=== PATIENT | male | born 1960 | race Caucasian/White ===

== ENCOUNTER 2018-07-19 18:45 | Inpatient (IN) ==
[2018-07-19] MEDS ORDERED: 0.9 % Sodium Chloride 1,000 ML IVC ONE (18:57)
[2018-07-19] MEDS ORDERED: Dexamethasone 4 MG/ML VIAL IVP ONE (19:01)
[2018-07-19] MEDS ORDERED: *HR* Promethazine 25 MG/ML VIAL IVP ONE (19:02)
[2018-07-19] MEDS ORDERED: Isovue-370 500 ML INFUS..BTL IV ONE (19:17)
--- NOTE | 2018-07-19 19:20 | Emergency Department Note ---
Disposition Clinical Impression: MARJAN (acute kidney injury), Pleural effusion, Elevated liver enzymes, Hyponatremia, History of malignant melanoma Pneumonia Qualifiers: Pneumonia type: due to unspecified organism Laterality: left Lung location: unspecified part of lung Qualified Code(s): J18.9 - Pneumonia, unspecified organism Abdominal pain Qualifiers: Abdominal location: generalized Qualified Code(s): R10.84 - Generalized abdominal pain Nausea and vomiting Qualifiers: Vomiting type: unspecified Vomiting Intractability: non-intractable Qualified Code(s): R11.2 - Nausea with vomiting, unspecified Disposition: Admitted As Inpatient Condition: Fair Time of Disposition: 01:57 General Adult HPI - General Stated complaint: general weakness Time Seen by Provider: 07/19/18 18:48 Source: patient, family, EMS Mode of arrival: ambulatory Limitations: no limitations Nursing Notes Reviewed: Yes Vital Signs Reviewed: Yes - History of Present Illness HPI Narrative: Patient is a 57-year-old male with past medical history of PE/DVT, diabetes, malignant melanoma diagnosed in March 2018, left-sided chest pleural drain placement due to a malignant effusion, and atrial fibrillation presents to the emergency department for evaluation of nausea, vomiting, weakness and dyspnea. According to the patient and patient's family the past 3 days he has had nonstop nausea and vomiting has been unable to tolerate any by mouth. Patient' s family were states he has also become progressively weak that he sits in a chair at home and he has been unable to him later on the house without difficulty. The patient's caregiver states that she walked into the room after he held for her prior to arrival and he was sitting up in his chair with his head back looking at the ceiling and appeared to be in a daze was unresponsive for about 5 minutes. She states she called the squad my time the squad arrived he was responding appropriately. She states that she has been checking his pulse oxygen has been dropping down into the 70s 2 days ago and in the 80s yesterday. She states that he is on 2 L nasal cannula at home since his cancer diagnosis. Denies any history of COPD. Patient has no focal neurological deficits. atrial fibrillation cancer DVT diabetes pulmonary embolus other Male surgical history herniorrhaphy - Related Data Home Medications Medication Instructions Recorded Confirmed Amiodarone [Cordarone] 200 mg PO DAILY 06/01/18 07/19/18 Fludrocortisone Acetate [Florinef] 0.1 mg PO BID 06/01/18 07/19/18 Metoprolol [Lopressor] 12.5 mg PO BID 06/01/18 07/19/18 Multivit-Min/FA/Lycopen/Lutein [A 1 tab PO DAILY 06/01/18 07/19/18 Thru Z Select Multivit Tab] Naproxen 375 mg PO BID PRN 06/01/18 07/19/18 Ondansetron HCl [Zofran] 4 mg PO Q8HR PRN 06/01/18 07/19/18 Saxagliptin HCl [Onglyza] 5 mg PO DAILY 06/01/18 07/19/18 Aspirin Enteric Coated [Aspirin EC] 81 mg PO DAILY 07/19/18 07/19/18 Baclofen [Lioresal] 10 mg PO TID 07/19/18 07/19/18 Enoxaparin [Lovenox] 150 mg SQ DAILY 07/19/18 07/19/18 Hydrocortisone [Cortef] 10 mg PO QPM 07/19/18 07/19/18 Hydrocortisone [Cortef] 30 mg PO QAM 07/19/18 07/19/18 Insulin Glargine,Hum.rec.anlog 10 unit SQ DAILY 07/19/18 07/19/18 [Lantus Solostar] Pantoprazole Sodium [Protonix] 20 mg PO DAILY 07/19/18 07/19/18 Tamsulosin HCl [Flomax] 0.4 mg PO DAILY 07/19/18 07/19/18 metFORMIN [Glucophage] 500 mg PO DAILY 07/19/18 07/19/18 Allergies Allergy/AdvReac Type Severity Reaction Status Date / Time No Known Allergies Allergy Verified 06/13/15 14:30 All systems ED: reviewed and negative except as stated. Review of Systems: As Per HPI Constitutional: Reports: weakness. Denies: fever, chills Cardiovascular: Reports: dyspnea on exertion. Denies: chest pain, palpitations , edema, syncope Respiratory: Reports: dyspnea. Denies: cough, wheezes, sputum production Gastrointestinal: Reports: abdominal pain, nausea, vomiting. Denies: diarrhea, hematemesis, melena, hematochezia Genitourinary: Denies: urgency, dysuria, frequency Musculoskeletal: Denies: back pain Integumentary: Denies: rash Neurological: Reports: weakness (Generalized). Denies: headache, numbness, paresthesias, confusion Past Medical History - Past Medical History Attestation: Yes The following information was validated with the patient. Medical history: Reports: cancer, DVT, diabetes, pulmonary embolus, other Surgical history: Reports: cancer surgery, other (melanoma and lymph node resection, right cheek bone reconstruction, b/l hernia repair as a child) Psychiatric history: Reports: no psych history - Social History Smoking Status: Never smoker Smokeless Tobacco Status: No Alcohol use: Reports: none Drug use: Reports: none Physical Exam - General Limitations: no limitations General appearance: alert, cachectic - Head Head exam: atraumatic, normocephalic, normal inspection - Eye Eye exam: Present: normal appearance, PERRL, EOMI - ENT ENT exam: mucous membranes dry - Neck Neck exam: Present: normal inspection, full ROM, trachea midline. Absent: tenderness - Chest Chest inspection: Present: symmetric chest wall rise, other (Right chest port. No signs of erythema or surrounding induration or fluctuance. Patient also has a bandaged left-sided chest tube placed.). Absent: tenderness - Respiratory Respiratory exam: Present: normal lung sounds bilaterally. Absent: respiratory distress, wheezes, accessory muscle use - Cardiovascular Cardiovascular exam: Present: normal heart sounds, +S1, +S2 - Abdominal Exam Abdominal exam: Present: tenderness, guarding, normal bowel sounds. Absent: rebound, rigidity Abdominal tenderness: Present: mild (Periumbilical region) - Extremities Exam Extremities exam: Present: normal inspection, full ROM, normal capillary refill. Absent: tenderness, pedal edema - Back Exam Back exam: Present: normal inspection. Absent: tenderness - Neurological Exam Neurological exam: Present: alert, oriented X3, CN II-XII intact. Absent: motor sensory deficit - Expanded Neurological Exam Patient oriented to: Present: person, place, time Speech: Present: fluid speech Cranial nerves: EOM function (II, III, IV, ): Normal, facial sensation (V): Normal, facial palsy (VII): Normal, gag reflex (IX): Normal, spinal accessory function (XI): Normal, tongue deviation (XII): Normal Cerebellar function: finger to nose: Normal, heel to dwyer: Normal Motor strength - LUE: 5/5 Motor strength - RUE: 5/5 Motor strength - LLE: 5/5 Motor strength - RLE: 5/5 Sensory exam upper extremity: light touch: Normal Sensory exam lower extremity: light touch: Normal Coma Scale Eye Opening: Spontaneous Coma Scale Motor Response: Obeys Commands Coma Scale Verbal Response: Oriented Coma Scale Total: 15 - Psychiatric Psychiatric exam: Present: normal affect, normal mood - Skin Skin exam: Present: warm, dry, intact, normal color Course Course Narrative: Patient presents with history of malignant melanoma complaining of multiple doses of nausea and vomiting associated with dyspnea. Currently goes immunologic treatments at the [facility] every 3 weeks there is right chest port. Discussed with the patient plan at this time is to treat his symptoms which she was given promethazine and steroids by the daytime provider. They mention a concern of possible spread of metastases to the brain causing increased intracranial pressure leading to the patient's uncontrollable nausea vomiting. On exam the patient also had diffuse abdominal pain given his inability to tolerate by mouth we will also perform a CT scan of the abdomen. The caregiver also mentioned hypoxia to plans times to evaluate the patient for concerns for ACS versus PE. Patient stable at this time. - Reevaluation(s) Reevaluation #1: Patient's CBC was remarkable. His metabolic panel was significant for a hyponatremia of 128. He also has a KI with a creatinine of 1.39 which is new. His urine was negative for any signs of infection.the patient does have elevation of his AST and LT as well as his bilirubins. Given his nausea vomiting abdominal pain and essentially negative CT scan for any acute process plan is to perform a gallbladder ultrasound to evaluate for potential cholecystitis. He has received broad-spectrum antibiotics due to his chest x- ray findings concerning for possible pneumonia versus pulmonary effusion. His CTA was negative for PE. The gallbladder scan is negative the patient will be admitted to the hospital for further treatment of his pneumonia. Time: 00:50 Reevaluation #2: Discussed the patient's case with hospitalist on-call. Discussed plan to admit him for dyspnea the setting of possible pleural effusion versus pneumonia. Discussed broad-spectrum antibiotic coverage request that we place the patient on azithromycin to cover for atypicals. The patient's chronic steroid use at home and also given a 100 mg dose of Solu-Cortef for any adrenal insufficiency concern. Discussed that we will wait to admit the patient until his gallbladder US has returned. Time: 01:54 Vital Signs Temperature 102.9 F H 07/19/18 19:32 Pulse Rate 96 07/19/18 19:32 Respiratory Rate 25 07/19/18 19:32 Blood Pressure 174/86 07/19/18 19:32 O2 Sat by Pulse Oximetry 100 07/19/18 19:32 Temperature 97.5 F L 07/20/18 05:46 Pulse Rate 69 07/20/18 05:46 Respiratory Rate 16 07/20/18 05:46 Blood Pressure 129/81 07/20/18 05:46 O2 Sat by Pulse Oximetry 100 07/20/18 05:46 Oxygen Delivery Oxygen Delivery Room Air Medical Decision Making - Medical Records Medical records reviewed: Yes I reviewed the patient's medical records. - Lab Data Lab results reviewed: Yes I reviewed the patient's lab results. Result diagrams: 07/19/18 18:57 07/19/18 18:57 Lab Results 07/19/18 07/19/18 07/20/18 Range/Units 18:57 18:57 00:12 WBC 7.1 (4.3-11.1) K/mcL RBC 4.16 L (4.19-5.50) M/mcL Hgb 12.2 L (12.9-16.9) g/dL Hct 36.5 L (37.5-50.1) % MCV 87.7 (83.0-100.0) fL MCH 29.3 (28.0-33.3) pg MCHC 33.4 (31.6-35.5) g/dL RDW 15.0 H (11.5-14.5) % Plt Count 124 L (140-400) K/mcL MPV 8.2 L (9.4-12.4) fL Immature Gran % 2.0 (0-4) % Seg Neutrophils % 65.8 % Lymphocytes % 24.9 % Monocytes % 4.9 % Eosinophils % 1.4 % Basophils % 1.0 % Neutrophils # 4.7 (1.6-8.9) K/mcL Lymphocytes # 1.8 (0.6-4.6) K/mcL Monocytes # 0.4 (0.0-1.3) K/mcL Eosinophils # 0.1 (0.0-0.6) K/mcL Basophils # 0.1 (0.0-0.2) K/mcL Sodium 128 L (136-145) mEq/L Potassium 3.7 (3.5-5.1) mEq/L Chloride 93 L (98-107) mEq/L Carbon Dioxide 28 (23-29) mEq/L BUN 27 H (6-20) mg/dL Creatinine 1.39 H (0.70-1.30) mg/dL Est GFR ( Amer) > 60 (> 60) Est GFR (Non-Af Amer) 52 L (> 60) BUN/Creatinine Ratio 19 (6-26) Glucose 220 H (70-105) mg/dL Calculated Osmolality 278 L (280-300) Calcium 7.9 L (8.6-10.3) mg/dL Total Bilirubin 1.2 H (0.3-1.0) mg/dL Direct Bilirubin 0.5 H (0.0-0.2) mg/dL Indirect Bilirubin 0.7 (0.0-1.2) mg/dL AST 172 H (13-39) Units/L ALT 136 H (7-52) Units/L Alkaline Phosphatase 505 H (34-104) Units/L Troponin I 0.03 (< 0.04) ng/mL Serum Total Protein 6.1 L (6.4-8.9) g/dL Albumin 2.9 L (3.5-5.7) g/dL Globulin 3.2 (2.4-3.5) g/dL Albumin/Globulin Ratio 0.9 L (1.1-2.2) Urine Color Dark Yellow (Yellow) Urine Clarity Clear (Clear) Urine pH 5.5 (5.0-8.0) pH Units Ur Specific [place] 1.024 (1.010-1.025) Urine Protein 100 H (Neg-Trace) mg/dL Urine Glucose (UA) 100 H (Normal) mg/dL Urine Ketones Trace H (Negative) mg/dL Urine Blood Small H (Negative) Urine Nitrite Negative (Negative) Urine Bilirubin Small H (Negative) Urine Urobilinogen Normal (Normal) mg/dL Ur Leukocyte Esterase Negative (Negative) Urine Microscopic RBC 3-5 H (0-3) per hpf Urine Microscopic WBC 0-3 (0-3) per hpf Ur Squamous Epith Cells Many H (None-Few) per lpf Urine Bacteria None Seen (None-Few) per hpf Granular Casts Few H (None Seen) per lpf Ur Culture Indicated? NO (NO) - Radiology Data Radiology results reviewed: Yes I reviewed the patient's radiology results. Chest X-Ray 07/19/18 18:57 IMPRESSION: Left pleural catheter in place. Left mid and lower lung airspace opacification, atelectasis and/or pneumonia. Developing scarring could also have this appearance. D/ / Remedios Durham Cha, MD / Remedios Durham Cha, MD Interpreting Provider: Remedios Durham Cha, MD Abdomen/Pelvis CT 07/19/18 19:17 IMPRESSION: Interval decrease in size of bilateral adrenal gland masses. Otherwise stable findings. D/ / Remedios Durham Cha, MD / Remedios Durham Cha, MD Interpreting Provider: Remedios Durham Cha, MD Head CT 07/19/18 19:17 IMPRESSION: No acute intracranial abnormality. Status post surgical fixation of the right orbital rim. D/ / Mitesh Zhang MD / Mitesh Zhang MD Interpreting Provider: Mitesh Zhang MD Chest CTA 07/19/18 19:18 IMPRESSION: No evidence of pulmonary embolism. Left hilar/infrahilar mass measuring 3.6 x 3.9 cm. There is encasement of pulmonary vasculature. Left-sided pleural effusion and adjacent atelectasis/scarring. Mediastinal lymphadenopathy. D/ / Mitesh Zhang MD / Mitesh Zhang MD Interpreting Provider: Mitesh Zhang MD - EKG Data EKG #1 EKG attestation: Yes I reviewed and interpreted this EKG. EKG results narrative: EKG done at 19:33 shows atrial fibrillation rate 94 bpm. Normal axis. Otherwise normal EKG. Attestation Statement - Attestation Attestation: I examined this patient and my medical decision-making was reviewed with the Resident Physician. I agree with the documented findings, disposition and treatment plan as described except to the extent set forth below. Findings consistent with metastatic melanoma and complications of that. There was evidence of transaminitis as well as elevated alkaline phosphatase and a ultrasound of the gallbladder was obtained to rule out acute cholecystitis. The patient result be admitted after initiation of broad-spectrum antibiotics given findings of fever. The patient will be admitted for further management workup.
[2018-07-19 20:23] LABS: Basophils # 0.1 K/mcL (0.0-0.2); Eosinophils # 0.1 K/mcL (0.0-0.6); Eosinophils % 1.4 %; Hematocrit 36.5 % (37.5-50.1); Hemoglobin 12.2 g/dL (12.9-16.9); Lymphocytes # 1.8 K/mcL (0.6-4.6); Lymphocytes % 24.9 %; Mean Corpuscular HGB Conc 33.4 g/dL (31.6-35.5); Mean Corpuscular Hemoglobin 29.3 pg (28.0-33.3); Mean Corpuscular Volume 87.7 fL (83.0-100.0); Mean Platelet Volume 8.2 fL (9.4-12.4); Monocytes # 0.4 K/mcL (0.0-1.3); Monocytes % 4.9 %; Neutrophils # 4.7 K/mcL (1.6-8.9); Platelet Count 124 K/mcL (140-400); Red Blood Count 4.16 M/mcL (4.19-5.50); Segmented Neutrophils % 65.8 %
[2018-07-19] MEDS ORDERED: Acetaminophen IV 1,000 MG/100 ML INFUS..BTL IVPB ONE (20:41)
[2018-07-19 20:45] LABS: Alanine Aminotransferase 136 Units/L (7-52); Albumin 2.9 g/dL (3.5-5.7); Albumin/Globulin Ratio 0.9 (1.1-2.2); Alkaline Phosphatase 505 Units/L (34-104); Aspartate Amino Transferase 172 Units/L (13-39); BUN/Creatinine Ratio 19 (6-26); Bilirubin,Direct 0.5 mg/dL (0.0-0.2); Bilirubin,Indirect 0.7 mg/dL (0.0-1.2); Bilirubin,Total 1.2 mg/dL (0.3-1.0); Blood Urea Nitrogen 27 mg/dL (6-20); Calcium 7.9 mg/dL (8.6-10.3); Carbon Dioxide 28 mEq/L (23-29); Chloride 93 mEq/L (98-107); Globulin 3.2 g/dL (2.4-3.5); Glucose 220 mg/dL (70-105); Osmolality,Calculated 278 (280-300); Potassium 3.7 mEq/L (3.5-5.1); Sodium 128 mEq/L (136-145); Total Protein 6.1 g/dL (6.4-8.9); Troponin I 0.03 ng/mL (< 0.04); eGFR For Non-African Americans 52 (> 60)
[2018-07-19] MEDS ORDERED: Cefepime HCl 2,000 MG in 0.9 % Sodium Chloride Mini Bag 100 ML IVPB STA (21:39)
[2018-07-20 00:20] LABS: Bilirubin,Urine Small (Negative); Blood,Urine Small (Negative); Clarity,Urine Clear (Clear); Color,Urine Dark Yellow (Yellow); Glucose,Urine (UA) 100 mg/dL (Normal); Ketones,Urine Trace mg/dL (Negative); Leukocyte Esterase,Urine Negative (Negative); Nitrite,Urine Negative (Negative); PH,Urine 5.5 pH Units (5.0-8.0); Protein,Urine 100 mg/dL (Neg-Trace); Specific Gravity,Urine 1.024 (1.010-1.025); Urobilinogen,Urine Normal (Normal)
[2018-07-20 00:22] LABS: Bacteria,Urine None Seen per hpf (None-Few); Squamous Epithelial Cell,Urine Many per lpf (None-Few); WBC,Urine 0-3 per hpf (0-3)
[2018-07-20 00:33] LABS: Granular Casts,Urine Few per lpf (None Seen)
[2018-07-20] MEDS ORDERED: Azithromycin 500 MG in D5% in Water 250 ML IVPB ONE (01:52)
[2018-07-20] MEDS ORDERED: Hydrocortisone Sodium Succ 100 MG/2 ML VIAL IVP ONE (01:53)
[2018-07-20] MEDS ORDERED: Naloxone 0.4 MG/ML INJ IVP PRN (08:01)
[2018-07-20] MEDS: Levofloxacin 750 MG/150 ML 750 MG/150 ML BAG IVPB SCH (09:46)
[2018-07-20] MEDS: Aspirin Enteric Coated 81 MG Tablet PO SCH (09:47)
[2018-07-20] MEDS: 0.9 % Sodium Chloride 1,000 ML IVC SCH ×2 (09:47→21:30)
--- NOTE | 2018-07-20 10:29 | Internal Med History&Physical ---
Date of Encounter: 07/20/18 Time of Encounter: 10:30 Internal Medicine - H&P: HPI Chief complaint: Nausea, vomiting and fevers History of present illness: Mr. Catherine is a 57 year old male with pmh of malignant melanoma of the adrenal gland and lungs for which he is on immunotherapy , also with left sided pleurx drain, adrenal insufficiency on oral steroids, diabetes, PE/DVT presenting with complaints of nausea, vomiting and fevers since thursday. Patient denies any triggers, denies eatig out, says he went to bed and woke up feeling really sick on thursday. Has had fevers up to 102 at home for which he took tylenol and subsequently had sweats. Was feeling really weak on thursday, and his felt like he was staring into space and thats why she called the EMS. In the ER, he was given vanc,cefepime and azithromycin and blood cultures were obtained. He is being admitted for further management of sepsis [facility] Past Med Surg Social Fam HX - Past Medical History Medical history: cancer, DVT, diabetes, pulmonary embolus, other Additional medical history: adrenal gland and left lung cancer, skin cancer Psychiatric history: no psych history - Past Surgical History Surgical History: cancer surgery, other (melanoma and lymph node resection, right cheek bone reconstruction, b/l hernia repair as a child) Additional surgical history: skin cancer removed, lymph nodes removed from left side, left pleurax catheter - Social History Smoking Status: Never smoker Smokeless Tobacco Status: No Alcohol use: none Drug use: none - Family History Maternal Grandmother Hx Family Cancer: Yes Internal Medicine - H&P: Meds Amiodarone [Cordarone] 200 mg PO DAILY 06/01/18 [History] Fludrocortisone Acetate [Florinef] 0.1 mg PO BID 06/01/18 [History] Metoprolol [Lopressor] 12.5 mg PO BID 06/01/18 [History] Multivit-Min/FA/Lycopen/Lutein [A Thru Z Select Multivit Tab] 1 tab PO DAILY [History] Naproxen 375 mg PO BID PRN 06/01/18 [History] Ondansetron HCl [Zofran] 4 mg PO Q8HR PRN 06/01/18 [History] Saxagliptin HCl [Onglyza] 5 mg PO DAILY 06/01/18 [History] Aspirin Enteric Coated [Aspirin EC] 81 mg PO DAILY 07/19/18 [History] Baclofen [Lioresal] 10 mg PO TID 07/19/18 [History] Enoxaparin [Lovenox] 150 mg SQ DAILY 07/19/18 [History] Hydrocortisone [Cortef] 10 mg PO QPM 07/19/18 [History] Hydrocortisone [Cortef] 30 mg PO QAM 07/19/18 [History] Insulin Glargine,Hum.rec.anlog [Lantus Solostar] 10 unit SQ DAILY 07/19/18 [ History] Pantoprazole Sodium [Protonix] 20 mg PO DAILY 07/19/18 [History] Tamsulosin HCl [Flomax] 0.4 mg PO DAILY 07/19/18 [History] metFORMIN [Glucophage] 500 mg PO DAILY 07/19/18 [History] 3 Allergy/AdvReac Type Severity Reaction Status Date / Time No Known Allergies Allergy Verified 06/13/15 14:30 All Systems PM: A 10-system review of systems was performed and is negative for pertinent findings except as documented above in the HPI. - Constitutional Constitutional: fever(s), no chills, no night sweats - EENT Eyes: no change in vision, no discharge, no pain, no photophobia Ears: no ear discharge, no ear pain, no tinnitus Nose, mouth and throat: no dysphagia, no nasal discharge, no neck pain, no sore throat - Cardiovascular Cardiovascular ROS IM: no chest pain, no diaphoresis, no dyspnea, no lightheadedness, no palpitations, no syncope - Respiratory Respiratory: no cough, no dyspnea, no wheezing, no excessive phlegm production - Gastrointestinal Gastrointestinal: nausea, vomiting, no abdominal pain, no diarrhea, no hematemesis, no hematochezia, no melena - Musculoskeletal Musculoskeletal ROS IM: no numbness, no tingling - Integumentary Integumentary IM: no rash, no unusual bruising - Neurological Neurological ROS: no confusion, no convulsions, no focal weakness, no numbness, no tingling, no tremor(s) - Hematologic/Lymphatic Hematologic/Lymphatic: no easy bruising - Constitutional Vitals: Temp Pulse Resp BP Pulse Ox 98.4 F 73 11 136/75 100 07/20/18 07:38 07/20/18 07:38 07/20/18 07:38 07/20/18 07:38 07/20/18 09:23 Exam: NAD. appears very lethargic - Head Head exam: Present: atraumatic, normocephalic - Eye Eye exam: Present: PERRL, conjuntiva pink, sclera anicteric Pupils: Present: PERRL - Neck Neck exam general surgery: Present: supple, trachea midline. Absent: lymphadenopathy - Respiratory Respiratory exam: Present: CTAB. Absent: accessory muscle use, rales, rhonchi, wheezes Additional comments: left sided drain in place - Cardiovascular Cardiovascular exam: Present: RRR, +S1, +S2. Absent: diastolic murmur, gallop, rubs, systolic murmur - GI/Abdominal GI/Abdominal exam: Present: normal bowel sounds, soft, no peritoneal signs. Absent: distended, tenderness - Extremities Exam Extremities exam: Present: warm, radial pulses palpable and symmetrical. Absent : calf tenderness, cyanotic, pedal edema - Neurological Exam Neurological exam: Present: CN II-XII intact, oriented X3, no focal deficits. Absent: pronater drift, facial droop, speech deficit - Skin Skin exam: Present: dry, intact Internal Med - H&P Results - Labs CBC & Chem 7: 07/20/18 11:15 07/20/18 11:15 - Assessment and plan (1) Sepsis Current Visit: Yes Status: Acute Assessment and plan: Pt came in with nausea, vomiting and fevers, denies diarrhea. CT chest shows left sided pleural effusion. Pt has pluerx drain. spiked fvers up to 102 at home as well as in the ER Start on broad spectrum antibiotics with vanc, zosyn and levaquin for likely HCAP due to bacterial infection. Obtain blood cultures, lactic acid, urine streptococcal and legionella antigen Qualifiers: Sepsis type: sepsis due to unspecified organism Qualified Code(s): A41.9 - Sepsis, unspecified organism (2) Pneumonia Current Visit: Yes Status: Acute Assessment and plan: Likely bacterial from HCAP with pleural effusion. On broad spectrum antibiotics with vacn, zosyn and levaquin Follow up blood cultures Qualifiers: Pneumonia type: due to unspecified organism Laterality: left Lung location: unspecified part of lung Qualified Code(s): J18.9 - Pneumonia, unspecified organism (3) MARJAN (acute kidney injury) Current Visit: Yes Status: Acute Assessment and plan: Will give IV fluids. Monitor BUN/cr (4) Pleural effusion Current Visit: Yes Status: Acute Assessment and plan: With HCAP. On antibiotics (5) Melanoma Current Visit: No Status: Acute Assessment and plan: Pt reported melonam of lungs and adrenal glands. On immunotherapy outpatient Qualifiers: Melanoma location: unspecified site Qualified Code(s): C43.9 - Malignant melanoma of skin, unspecified (6) Orthostatic hypotension Current Visit: No Status: Acute Assessment and plan: Likely secondary to adrenal insufficience vs hypovolemia from sepsis/ dehydration. Continue IV fluids and abx. Pt also reports chronic dizzziness when he specifically turns his head from the right side to the left side. Obtain carotid ultrasound to rule out carotid artery stenosis (7) Hyponatremia Current Visit: Yes Status: Acute Assessment and plan: Pt has sodium of 128. Start on IV fluids with normal saline (8) DVT prophylaxis Current Visit: Yes Status: Acute Assessment and plan: Heparin sc - Time Spent With Patient Total time spent is greater than 50% in coordination of care (as documented) at patient's floor/unit and/or counseling patient:
[2018-07-20] MEDS ORDERED: Dextrose Gel 15 GM/37.5 ML TUBE PO PRN ×2 (10:53)
[2018-07-20] MEDS ORDERED: *HR* Dextrose 50 % in Water (Syg) 50 ML SYRINGE IVP PRN (10:53)
[2018-07-20] MEDS ORDERED: D5% in Water 1,000 ML IVC PRN (10:53)
[2018-07-20 11:35] LABS: Hematocrit 38.1 % (37.5-50.1); Hemoglobin 12.8 g/dL (12.9-16.9); Mean Corpuscular HGB Conc 33.6 g/dL (31.6-35.5); Mean Corpuscular Hemoglobin 29.6 pg (28.0-33.3); Mean Platelet Volume 8.7 fL (9.4-12.4); Platelet Count 114 K/mcL (140-400); Red Blood Count 4.33 M/mcL (4.19-5.50); Red Cell Distribution Width 14.7 % (11.5-14.5)
[2018-07-20 11:43] LABS: Estimated Average Glucose 160 mg/dl; Hemoglobin A1C 7.2 %
[2018-07-20 11:50] LABS: Lymphocytes # 1.8 K/mcL (0.6-4.6); Monocytes # 0.2 K/mcL (0.0-1.3); Neutrophils # 3.4 K/mcL (1.6-8.9)
[2018-07-20 11:51] LABS: Platelet Estimate Slight Decrease (Normal); Reactive Lymphocytes Present (Not Present)
[2018-07-20 11:53] LABS: BUN/Creatinine Ratio 28 (6-26); Blood Urea Nitrogen 32 mg/dL (6-20); Carbon Dioxide 27 mEq/L (23-29); Chloride 98 mEq/L (98-107); Glucose 353 mg/dL (70-105); Osmolality,Calculated 299 (280-300); Potassium 4.4 mEq/L (3.5-5.1); Sodium 134 mEq/L (136-145); eGFR For Non-African Americans > 60 (> 60)
[2018-07-20] MEDS: Hydrocortisone 10 MG TABLET PO SCH ×2 (11:54→21:29)
[2018-07-20] MEDS: Baclofen 10 MG TABLET PO SCH ×3 (11:54→21:29)
[2018-07-20] MEDS: *HR* Enoxaparin 150 MG/ML SYRINGE SQ SCH (11:55)
[2018-07-20] MEDS: (Saxagliptin Hcl [Onglyza] 5 MG) PO SCH (11:55)
[2018-07-20] MEDS: *HR* Amiodarone 200 MG TABLET PO SCH (12:00)
[2018-07-20] MEDS: Insulin LISPRO 300 UNITS/3 ML VIAL SQ SCH ×2 (12:09→17:19)
[2018-07-20] MEDS: Insulin DETEMIR 100 UNIT/ML X5UNITS SQ SCH (14:28)
[2018-07-20] MEDS ORDERED: Insulin LISPRO 300 UNITS/3 ML VIAL SQ STA (15:42)
[2018-07-20] MEDS: Piperacillin/Tazobactam 3.375 GM in 0.9 % Sodium Chloride Mini Bag 100 ML IVPB SCH ×2 (16:02→23:27)
[2018-07-21 03:49] LABS: Basophils % 0.2 %; Hematocrit 29.7 % (37.5-50.1); Hemoglobin 9.9 g/dL (12.9-16.9); Immature Granulocytes % 1.5 % (0-4); Immature Platelets 1.7 % (1.1-6.1); Lymphocytes # 1.2 K/mcL (0.6-4.6); Lymphocytes % 13.3 %; Mean Corpuscular HGB Conc 33.3 g/dL (31.6-35.5); Mean Corpuscular Hemoglobin 28.5 pg (28.0-33.3); Mean Corpuscular Volume 85.6 fL (83.0-100.0); Mean Platelet Volume 8.9 fL (9.4-12.4); Monocytes # 0.4 K/mcL (0.0-1.3); Monocytes % 4.2 %; Platelet Count 161 K/mcL (140-400); Red Blood Count 3.47 M/mcL (4.19-5.50); Segmented Neutrophils % 80.8 %
[2018-07-21 04:12] LABS: BUN/Creatinine Ratio 31 (6-26); Blood Urea Nitrogen 28 mg/dL (6-20); Calcium 7.6 mg/dL (8.6-10.3); Carbon Dioxide 25 mEq/L (23-29); Chloride 106 mEq/L (98-107); Glucose 171 mg/dL (70-105); Magnesium 1.9 mg/dL (1.6-2.6); Osmolality,Calculated 292 (280-300); Phosphorous 1.9 mg/dL (2.7-4.5); Potassium 3.6 mEq/L (3.5-5.1); Sodium 136 mEq/L (136-145); eGFR For Non-African Americans > 60 (> 60)
[2018-07-21] MEDS: *HR* Enoxaparin 150 MG/ML SYRINGE SQ SCH (05:23)
[2018-07-21] MEDS: Piperacillin/Tazobactam 3.375 GM in 0.9 % Sodium Chloride Mini Bag 100 ML IVPB SCH ×2 (06:14→15:24)
[2018-07-21] MEDS: (Saxagliptin Hcl [Onglyza] 5 MG) PO SCH (08:38)
--- NOTE | 2018-07-21 08:42 | Internal Med Progress Note ---
Hospitalist Progress Note - Encounter Date of Encounter: 07/21/18 Time of Encounter: 08:42 - Exam Vitals: Temp Pulse Resp BP Pulse Ox 97.4 F L 64 15 148/71 96 07/21/18 07:29 07/21/18 07:29 07/21/18 07:29 07/21/18 07:07/21/18 07:29 - Assessment and Plan (1) Melanoma Current Visit: No Status: Acute (2) Orthostatic hypotension Current Visit: No Status: Acute (3) MARJAN (acute kidney injury) Current Visit: Yes Status: Acute (4) Pneumonia Current Visit: Yes Status: Acute (5) Pleural effusion Current Visit: Yes Status: Acute (6) Hyponatremia Current Visit: Yes Status: Acute (7) Sepsis Current Visit: Yes Status: Acute (8) DVT prophylaxis Current Visit: Yes Status: Acute - Time Spent with Patient Total time spent is greater than 50% in coordination of care (as documented) at patient's floor/unit and/or counseling patient: Internal Medicine: Result - Labs CBC & Chem 7: 07/21/18 03:22 07/21/18 03:22 Labs: Short CBC 07/20/18 07/21/18 Range/Units 11:15 03:22 WBC 5.4 8.7 D (4.3-11.1) K/mcL Hgb 12.8 L 9.9 L D (12.9-16.9) g/dL Hct 38.1 29.7 L (37.5-50.1) % Plt Count 114 L 161 (140-400) K/mcL Neutrophils # 3.4 7.0 (1.6-8.9) K/mcL BMP 07/20/18 07/21/18 11:15 03:22 Sodium 134 L 136 Potassium 4.4 3.6 Chloride 98 106 Carbon Dioxide 27 25 BUN 32 H 28 H Creatinine 1.14 0.89 Glucose 353 H 171 H Calcium 8.0 L 7.6 L Consult Discharge Plan - Plan (1) Melanoma Qualifiers: Melanoma location: unspecified site Qualified Code(s): C43.9 - Malignant melanoma of skin, unspecified (4) Pneumonia Qualifiers: Pneumonia type: due to unspecified organism Laterality: left Lung location: unspecified part of lung Qualified Code(s): J18.9 - Pneumonia, unspecified organism (7) Sepsis Qualifiers: Sepsis type: sepsis due to unspecified organism Qualified Code(s): A41.9 - Sepsis, unspecified organism
[2018-07-21] MEDS: Insulin LISPRO 300 UNITS/3 ML VIAL SQ SCH ×3 (08:45→16:59)
[2018-07-21] MEDS: *HR* Amiodarone 200 MG TABLET PO SCH (08:46)
[2018-07-21] MEDS: Baclofen 10 MG TABLET PO SCH ×3 (08:46→20:32)
[2018-07-21] MEDS: Aspirin Enteric Coated 81 MG Tablet PO SCH (08:46)
[2018-07-21] MEDS: Levofloxacin 750 MG/150 ML 750 MG/150 ML BAG IVPB SCH (08:47)
--- NOTE | 2018-07-21 09:10 | Internal Med Progress Note ---
Addendum entered and electronically signed by MAGDA Yun 16:01: (3) MARJAN (acute kidney injury) creatinine was elevated at time of admission at 1.39. Repeat studies this morning demonstrated improvement at .89. BUN was elevated at time of admission at 27. Repeat studies this morning showed BUN still elevated at 28. (4) Hyponatremia Sodium at time of admission low at 128. Repeat studies this morning demonstrated improvement at 136. Original Note: <Mariya Tomas - Last Filed: 07/21/18 14:10> Hospitalist Progress Note - Encounter Date of Encounter: 07/21/18 Time of Encounter: 08:30 - Subjective Interval History: Mr. 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 Symptoms started Thursday and the patient was too weak to eat or go in for his PET scan Thursday. His blood glucose dropped to 50 and pt took some glucose pills. ROS General: no fever/chills, n/v, fatigue, weakness, night sweats CV: no chest pain Resp: SOB with exertion GI: no diarrhea, constipation : no dysuria, hematuria, nocturia Msk: muscle twitches, no muscle or joint pain Heme: easy bruising 2/2 Lovenox, no rashes Neuro: numbness/tingling 2/2 diabetic neuropathy - Exam Vitals: Temp Pulse Resp BP Pulse Ox 97.4 F L 64 15 148/71 96 07/21/18 07:29 07/21/18 07:29 07/21/18 07:29 07/21/18 07:29 07/21/18 07:29 Exam: General: Alert and oriented, in no acute distress ENT: no lymphadenopathy Eyes: no conjunctival injection CV: RRR, no murmurs, no pedal edema Resp: CTAB GI: pressure but no tenderness upon palpation mid-epigastrium, bound sounds x4 - Assessment and Plan (1) Sepsis Current Visit: Yes Status: Acute Assessment and Plan: Pt came in with nausea, vomiting and fevers, denies diarrhea. CT chest shows left sided pleural effusion. Pt has pluerx drain. spiked fevers up to 102 at home as well as in the ER Start on broad spectrum antibiotics with vanc, zosyn and levaquin for likely HCAP due to bacterial infection. Obtain blood cultures, lactic acid, urine streptococcal and legionella antigen (2) Pneumonia Current Visit: Yes Status: Acute Assessment and Plan: Likely bacterial from HCAP with pleural effusion. On broad spectrum antibiotics with vacn, zosyn and levaquin Follow up blood cultures (3) MARJAN (acute kidney injury) Current Visit: Yes Status: Acute Assessment and Plan: Will give IV fluids. Monitor BUN/cr (4) Hyponatremia Current Visit: Yes Status: Acute Assessment and Plan: Pt has sodium of 128. Start on IV fluids with normal saline (5) Pleural effusion Current Visit: Yes Status: Acute Assessment and Plan: With HCAP. On antibiotics (6) Melanoma Current Visit: No Status: Acute Assessment and Plan: Pt reported melanoma of lungs and adrenal glands. On immunotherapy outpatient (7) Orthostatic hypotension Current Visit: No Status: Acute Assessment and Plan: Likely secondary to adrenal insufficience vs hypovolemia from sepsis/ dehydration. Continue IV fluids and abx. Pt also reports chronic dizzziness when he specifically turns his head from the right side to the left side. Obtain carotid ultrasound to rule out carotid artery stenosis (8) DVT prophylaxis Current Visit: Yes Status: Acute Assessment and Plan: heparin sc - Time Spent with Patient Total time spent is greater than 50% in coordination of care (as documented) at patient's floor/unit and/or counseling patient: Internal Medicine: Result - Labs CBC & Chem 7: 07/21/18 03:22 07/21/18 03:22 Labs: Short CBC 07/20/18 07/21/18 Range/Units 11:15 03:22 WBC 5.4 8.7 D (4.3-11.1) K/mcL Hgb 12.8 L 9.9 L D (12.9-16.9) g/dL Hct 38.1 29.7 L (37.5-50.1) % Plt Count 114 L 161 (140-400) K/mcL Neutrophils # 3.4 7.0 (1.6-8.9) K/mcL BMP 07/20/18 07/21/18 11:15 03:22 Sodium 134 L 136 Potassium 4.4 3.6 Chloride 98 106 Carbon Dioxide 27 25 BUN 32 H 28 H Creatinine 1.14 0.89 Glucose 353 H 171 H Calcium 8.0 L 7.6 L Consult Discharge Plan - Plan [facility]Primary Care Provider[facility] - <Paulo Chin - Last Filed: 07/21/18 17:13> Hospitalist Progress Note - Encounter Date of Encounter: 07/21/18 - Exam Vitals: Temp Pulse Resp BP Pulse Ox 98.4 F 65 17 152/60 98 07/21/18 15:37 07/21/18 15:37 07/21/18 15:37 07/21/18 15:37 07/21/18 15:37 - Assessment and Plan (1) Melanoma Current Visit: No Status: Acute (2) Orthostatic hypotension Current Visit: No Status: Acute (3) MARJAN (acute kidney injury) Current Visit: Yes Status: Acute (4) Pneumonia Current Visit: Yes Status: Suspected (5) Pleural effusion Current Visit: Yes Status: Acute (6) Hyponatremia Current Visit: Yes Status: Resolved (7) Sepsis Current Visit: Yes Status: Acute (8) DVT prophylaxis Current Visit: Yes Status: Acute (9) Diabetes mellitus type 2 with complications, uncontrolled Current Visit: No Status: Chronic - Time Spent with Patient Total time spent is greater than 50% in coordination of care (as documented) at patient's floor/unit and/or counseling patient: Internal Medicine: Result - Labs CBC & Chem 7: 07/21/18 03:22 07/21/18 03:22 Labs: Short CBC 07/21/18 Range/Units 03:22 WBC 8.7 D (4.3-11.1) K/mcL Hgb 9.9 L D (12.9-16.9) g/dL Hct 29.7 L (37.5-50.1) % Plt Count 161 (140-400) K/mcL Neutrophils # 7.0 (1.6-8.9) K/mcL BMP 07/21/18 03:22 Sodium 136 Potassium 3.6 Chloride 106 Carbon Dioxide 25 BUN 28 H Creatinine 0.89 Glucose 171 H Calcium 7.6 L - Attending Attestation The history, physical exam, and medical decision making was performed by the medical student either while I was physically present and actively involved or I personally re-performed the exam and medical decision making. I have verified the accuracy of the medical student's documentation with regards to the history, physical exam findings, and medical decision making on 07/21/18. Mr Catherine is currently admitted for sepsis related to presumed pneumonia. He remains moderate to high risk due to potential for worsening clinical status. Mr Catherine is resting at this time. His blood sugar was low earlier. No fever or chills now. No CP. No diarrhea Exam alert Comfortable resting in bed at this time Mucus membranes moist Heart reg Lungs diminished on L Abd soft and nontender No edema I/P 1. Sepsis due to PNA 2. PNA - most likely gram neg. On IV abx 3. MARJAN Further diagnoses and plan as above. <Mariya Tomas R - Last Filed: 07/21/18 14:10> (1) Sepsis Qualifiers: Sepsis type: sepsis due to unspecified organism Qualified Code(s): A41.9 - Sepsis, unspecified organism (2) Pneumonia Qualifiers: Pneumonia type: due to unspecified organism Laterality: left Lung location: unspecified part of lung Qualified Code(s): J18.9 - Pneumonia, unspecified organism (6) Melanoma Qualifiers: Melanoma location: unspecified site Qualified Code(s): C43.9 - Malignant melanoma of skin, unspecified <Paulo Chin A - Last Filed: 07/21/18 17:13> (1) Melanoma Qualifiers: Melanoma location: unspecified site Qualified Code(s): C43.9 - Malignant melanoma of skin, unspecified (4) Pneumonia Qualifiers: Pneumonia type: due to other aerobic Gram-negative bacteria Laterality: left Lung location: unspecified part of lung Qualified Code(s): J15.6 - Pneumonia due to other Gram-negative bacteria (7) Sepsis Qualifiers: Sepsis type: sepsis due to unspecified organism Qualified Code(s): A41.9 - Sepsis, unspecified organism
[2018-07-21] MEDS: Insulin DETEMIR 100 UNIT/ML X5UNITS SQ SCH (10:24)
[2018-07-21] MEDS: Hydrocortisone 10 MG TABLET PO SCH ×2 (10:24→16:59)
[2018-07-21] MEDS ORDERED: Insulin LISPRO 300 UNITS/3 ML VIAL SQ SCH (21:00)
[2018-07-22] MEDS: Piperacillin/Tazobactam 3.375 GM in 0.9 % Sodium Chloride Mini Bag 100 ML IVPB SCH ×4 (03:30→15:17)
[2018-07-22 04:37] LABS: Basophils % 0.3 %; Hematocrit 31.5 % (37.5-50.1); Lymphocytes # 1.1 K/mcL (0.6-4.6); Lymphocytes % 15.5 %; Mean Corpuscular Hemoglobin 28.3 pg (28.0-33.3); Mean Corpuscular Volume 85.6 fL (83.0-100.0); Mean Platelet Volume 8.5 fL (9.4-12.4); Monocytes # 0.3 K/mcL (0.0-1.3); Monocytes % 4.3 %; Neutrophils # 5.2 K/mcL (1.6-8.9); Platelet Count 101 K/mcL (140-400); Red Blood Count 3.68 M/mcL (4.19-5.50); Segmented Neutrophils % 76.9 %
[2018-07-22 04:44] LABS: Hemoglobin 10.4 g/dL (12.9-16.9)
[2018-07-22 04:58] LABS: BUN/Creatinine Ratio 14 (6-26); Blood Urea Nitrogen 10 mg/dL (6-20); Calcium 7.4 mg/dL (8.6-10.3); Carbon Dioxide 30 mEq/L (23-29); Chloride 103 mEq/L (98-107); Glucose 109 mg/dL (70-105); Osmolality,Calculated 284 (280-300); Potassium 2.7 mEq/L (3.5-5.1); Sodium 137 mEq/L (136-145); eGFR For Non-African Americans > 60 (> 60)
[2018-07-22] MEDS: *HR* Enoxaparin 150 MG/ML SYRINGE SQ SCH (06:17)
[2018-07-22] MEDS: Insulin LISPRO 300 UNITS/3 ML VIAL SQ SCH ×4 (07:39→21:56)
[2018-07-22] MEDS ORDERED: Potassium Chloride 40 MEQ, Lidocaine 1% 2 ML in D5% in Water 500 ML IVPB ONE (08:34)
--- NOTE | 2018-07-22 08:36 | Internal Med Progress Note ---
<EitanAylin N - Last Filed: 07/22/18 14:46> Hospitalist Progress Note - Encounter Date of Encounter: 07/22/18 Time of Encounter: 08:36 - Subjective Interval History: Mr. Catherine is a 57-year old male who presented to the ED on 07/19 complaining of persistent nausea, vomiting, and fevers x 3 days. Family also reported progressive weakness, and his noted him "staring into space", which prompted her to call EMS. Per H&P, patient was experiencing fevers of up to 102F at home. His past medical history is signficant for malignant melanoma with metastasis to lung and bilateral adrenal glands, left-sided pleurex drain due to malignant effusion, atrial fibrillation, diabetes mellitus, and DVT/PE. Initial laboratory workup revealed the following abnormalities: WBC 7.1, Hgb/ Hct 12.2/36.5, platelets 124, sodium 128, chloride 93, BUN 27, creatinine 1.39, calculated osmolality 278, calcium 7.9, total bilirubin 1.2, direct bilirubin 0.5, AST 172, ALT 136, alkaline phosphatase 505, serum total protein 6.1, and albumin 2.9. Further workup revealed the following significant findings: * Urinalysis - 100 protein, 100 glucose, trace ketones, small blood (3-5 microscopic WBCs), small bilirubin, and few granular casts. * Chest Xray - Left pleural catheter in place and left mid and lower lung airspace opacification, atelectasis, and/or pneumonia. * Chest CTA - Left hilar/infrahilar mass measuring 3.6 x 3.9cm and encasement of pulmonary vasculature. Left-sided pleural effusion and adjacent atelectasis/ scarring was noted, as was mediastinal lymphadenopathy. * CT abdomen/pelvis - Interval decrease in size of bilateral adrenal gland masses. * Gallbladder US - Sludge without corresponding inflammatory changes or bile duct dilation. Right retroperitoneal mass was also noted along the superior medial margin of the kidney, which was correlated to known adrenal masses. At the time of admission, patient met criteria for sepsis, and was started on broad spectrum antibiotic therapy with levofloxacin, zosyn, and vancomycin for suspected HCAP. Patient initially demonstrated some improvement in symptoms, and was able to ambulate in the [place] yesterday with his walker and the assistance of his . On examination today, Mr. Catherine is lying in bed in the position with his sheet covering his head. He is awake and answers questions appropriately; however, he remained under his covers for the duration of the exam. He denies any worsening SOB or productive cough. He states that he is eating and drinking well. He denies any acute complaints or concerns. Patient had several electrolyte abnormalities on laboratory studies this morning, including a critical phosphorus. Nursing staff reports that he does not look as good today as he did yesterday, and reports that the patient and his have expressed concern over recent dizziness. The patient has a known history of orthostatic hypotension; however, he has had frequent dizziness not associated with positional changes that occurs when he turns his head from left to right. Per nursing staff, the patient and his express concern that this dizziness may be secondary to further metastatic disease. - Exam Vitals: Temp Pulse Resp BP Pulse Ox 98.8 F 77 18 123/63 97 07/22/18 07:32 07/22/18 07:32 07/22/18 07:32 07/22/18 07:32 07/22/18 07:32 Exam: * General: Ill-appearing male in no acute distress. He is resting in bed. He responds to questions appropriately. * HEENT: Atraumatic and normocephalic. * Cardiovascular: Regular rate and rhythm. S1 and S2 present. No murmurs, rubs, or gallops. * Respiratory: Clear breath sounds bilaterally. Chest rises and falls symmetrically. * Gastrointestinal: Abdomen is soft, nontender, and nondistended. * Extremities: No clubbing, cyanosis, or edema present. - Assessment and Plan (1) Pneumonia Current Visit: Yes Status: Suspected Assessment and Plan: On initial evaluation in the ED, chest xray demonstrated left mid and lower lung airspace opacification, atelectasis, and/or pneumonia. Patient was also febrile and tachypneic, and was admitted for management of presumed HCAP. He was started on broad antibiotic therapy with levofloxacin, vancomycin, and zosyn on 07/20. To date, patient has received 3 days of antibiotic therapy. Patient's WBC on initial laboratory studies was 7.1, and has remained within normal limits, with most recent CBC showing WBC count of 6.8. Nursing staff reported that the patient was again running a fever late this morning, and he was given tylenol 650mg. Temperature continued to increase, with reading of 101.2F in the early afternoon. Patient denies any worsening shortness of breath or sputum production. Will continue current antibiotic therapy and tylenol PRN for fevers with careful watch for signs of worsening clinical status. (2) Sepsis Current Visit: Yes Status: Acute Assessment and Plan: At time of initial presentation, Mr. Catherine met sepsis criteria with a temperature of 102.9F, HR >90bpm, tachypnea, and xray findings consistent with pneumonia. Blood cultures were drawn prior to initiation of antibiotic therapy, with results pending. See above for further details of management plan. (3) Electrolyte abnormality Current Visit: Yes Status: Acute Assessment and Plan: Patient's laboratory studies on admission demonstrated hyponatremia; however, most recent serum sodium demonstrates that problem to have been successfully addressed. Labs this morning demonstrated worsening hypokalemia (potassium of 2.7, down from 3.6 yesterday), hypocalcemia (calcium of 7.4 from 7.6 on 07/21), and hypophosphatemia (critical value of 1.0, from 1.9 yesterday) Patient's electrolyte abnormalities were addressed, and repeat BMP, magnesium, and phosphorus studies are scheduled for this evening at 1900. Will continue to follow closely and replete electrolytes as necessary. (4) Dizziness Current Visit: Yes Status: Acute Assessment and Plan: Patient has a history of orthostatic hypotension; however, nursing staff reports that the patient has been complaining of dizziness chad he turns his head from left to right. In light of his metastatic disease involving his adrenal glands and lungs, patient and his are understandably concerned about the potential for further metastasis. Noncontrasted brain/head MRI is pending to evaluate for this possibility. (5) MARJAN (acute kidney injury) Current Visit: Yes Status: Acute Assessment and Plan: Initial laboratory studies demonstrated an elevated serum creatinine of 1.39. Patient has received IV fluid hydration, with improvement in serum creatinine, with most recent laboratory studies demonstrating creatinine of 0.73. Will continue close monitoring of renal function and avoidance of nephrotoxic agents as possible. (6) Melanoma Current Visit: No Status: Acute Assessment and Plan: Patient has a known history of metastatic melanoma affecting the lungs and adrenal glands. Plan to continue home steroid regimen - fludrocortisone avetate 0.1mg BID, hydrocortisone 10mg QPM, and hydrocortisone 30mg QAM. (7) Diabetes mellitus type 2 with complications, uncontrolled Current Visit: No Status: Chronic Assessment and Plan: Medium-dose sliding scale insulin with meals and low-dose sliding scale insulin at bedtime. Patient has had incidents of hypoglycemia, both at home and during this admission. Will continue close monitoring of blood glucose with appropriate corrections as needed. (8) DVT prophylaxis Current Visit: Yes Status: Acute Assessment and Plan: Lovenox 150mg daily. (9) Atrial fibrillation Current Visit: Yes Status: Acute Assessment and Plan: Continue home medication of amiodarone 200mg daily. Patient is anticoagulated with lovenox. - Time Spent with Patient Total time spent is greater than 50% in coordination of care (as documented) at patient's floor/unit and/or counseling patient: Internal Medicine: Result - Labs CBC & Chem 7: 07/22/18 04:15 07/22/18 04:15 Labs: Short CBC 07/22/18 Range/Units 04:15 WBC 6.8 (4.3-11.1) K/mcL Hgb 10.4 L (12.9-16.9) g/dL Hct 31.5 L (37.5-50.1) % Plt Count 101 L (140-400) K/mcL Neutrophils # 5.2 (1.6-8.9) K/mcL BMP 07/22/18 04:15 Sodium 137 Potassium 2.7 L Chloride 103 Carbon Dioxide 30 H BUN 10 Creatinine 0.73 Glucose 109 H Calcium 7.4 L Consult Discharge Plan - Plan [facility]errals: [facility] [Primary Care Provider] - <Paulo Chin - Last Filed: 07/22/18 17:39> Hospitalist Progress Note - Encounter Date of Encounter: 07/22/18 - Exam Vitals: Temp Pulse Resp BP Pulse Ox 97.9 F 74 19 130/69 97 07/22/18 15:00 07/22/18 15:00 07/22/18 15:00 07/22/18 15:00 07/22/18 15:00 - Assessment and Plan (1) Melanoma Current Visit: No Status: Acute (2) Diabetes mellitus type 2 with complications, uncontrolled Current Visit: No Status: Chronic (3) MARJAN (acute kidney injury) Current Visit: Yes Status: Acute (4) Pneumonia Current Visit: Yes Status: Suspected (5) Sepsis Current Visit: Yes Status: Acute (6) DVT prophylaxis Current Visit: Yes Status: Acute (7) Dizziness Current Visit: Yes Status: Acute (8) Electrolyte abnormality Current Visit: Yes Status: Acute (9) Atrial fibrillation Current Visit: Yes Status: Acute (10) Hypokalemia Current Visit: Yes Status: Acute Assessment and Plan: New today. Replace. (11) Hypophosphatemia Current Visit: Yes Status: Acute Assessment and Plan: New today Replace (12) Hypocalcemia Current Visit: Yes Status: Acute Assessment and Plan: Replace today. New (13) Hypoglycemia Current Visit: Yes Status: Acute Assessment and Plan: Adjust insulin - Time Spent with Patient Total time spent is greater than 50% in coordination of care (as documented) at patient's floor/unit and/or counseling patient: Internal Medicine: Result - Labs CBC & Chem 7: 07/22/18 04:15 07/22/18 04:15 Labs: Short CBC 07/22/18 Range/Units 04:15 WBC 6.8 (4.3-11.1) K/mcL Hgb 10.4 L (12.9-16.9) g/dL Hct 31.5 L (37.5-50.1) % Plt Count 101 L (140-400) K/mcL Neutrophils # 5.2 (1.6-8.9) K/mcL BMP 07/22/18 04:15 Sodium 137 Potassium 2.7 L Chloride 103 Carbon Dioxide 30 H BUN 10 Creatinine 0.73 Glucose 109 H Calcium 7.4 L - Attending Attestation I examined this patient and my medical decision-making was reviewed with the Resident Physician on 07/22/18. I agree with the documented findings, disposition and treatment plan as described except to the extent set forth below. Mr Catherine is curreintly admitted for pneumonia. He has become febrile today. He remains moderate to high risk due to potential for worsening clinical status. Mr Catherine feels tired. Has a fever today. No CP or worsening dyspnea. No diarrhea. No urinary symptoms. Exam Alert Comfortable in bed Mucus membranes dry Heart not tachy No wheeze abd soft No edema I/P 1. Pneumonia 2. Fever - recheck cultures 3. Melanoma Further diagnoses and plan as above. <Aylin Laird - Last Filed: 07/22/18 14:46> (1) Pneumonia Qualifiers: Pneumonia type: due to other aerobic Gram-negative bacteria Laterality: left Lung location: unspecified part of lung Qualified Code(s): J15.6 - Pneumonia due to other Gram-negative bacteria (2) Sepsis Qualifiers: Sepsis type: sepsis due to unspecified organism Qualified Code(s): A41.9 - Sepsis, unspecified organism (6) Melanoma Qualifiers: Melanoma location: unspecified site Qualified Code(s): C43.9 - Malignant melanoma of skin, unspecified <Paulo Chin A - Last Filed: 07/22/18 17:39> (1) Melanoma Qualifiers: Melanoma location: unspecified site Qualified Code(s): C43.9 - Malignant melanoma of skin, unspecified (4) Pneumonia Qualifiers: Pneumonia type: due to other aerobic Gram-negative bacteria Laterality: left Lung location: unspecified part of lung Qualified Code(s): J15.6 - Pneumonia due to other Gram-negative bacteria (5) Sepsis Qualifiers: Sepsis type: sepsis due to unspecified organism Qualified Code(s): A41.9 - Sepsis, unspecified organism (9) Atrial fibrillation Qualifiers: Atrial fibrillation type: chronic Qualified Code(s): I48.2 - Chronic atrial fibrillation
[2018-07-22] MEDS: Hydrocortisone 10 MG TABLET PO SCH ×2 (09:02→17:17)
[2018-07-22] MEDS: *HR* Amiodarone 200 MG TABLET PO SCH (09:02)
[2018-07-22] MEDS: Insulin DETEMIR 100 UNIT/ML X5UNITS SQ SCH (09:02)
[2018-07-22] MEDS: Aspirin Enteric Coated 81 MG Tablet PO SCH (09:02)
[2018-07-22] MEDS: Baclofen 10 MG TABLET PO SCH ×3 (09:02→21:56)
[2018-07-22] MEDS: (Saxagliptin Hcl [Onglyza] 5 MG) PO SCH (09:03)
[2018-07-22 09:16] LABS: VBG Ionized Calcium 1.03 mmol/L (1.15-1.35)
[2018-07-22] MEDS ORDERED: Potassium Phosphate 44 MEQ in 0.9 % Sodium Chloride 250 ML IVPB ONE (09:41)
[2018-07-22] MEDS ORDERED: Calcium Gluconate 2,000 MG in 0.9 % Sodium Chloride 100 ML IVPB ONE (09:44)
[2018-07-22] MEDS: levoFLOXacin 750 MG TABLET PO SCH (09:54)
[2018-07-22] MEDS: Acetaminophen 325 MG TABLET PO PRN (12:11)
--- NOTE | 2018-07-22 14:06 | Internal Med Progress Note ---
Hospitalist Progress Note - Encounter Date of Encounter: 07/22/18 - Subjective Interval History: 07/21/2018: Mr. Catherine is a 57 yr old male with a pmh of malignant melanoma of the adrenal glands and lungs, left-sided pleural drain placement, PE/DVT, a fib , T2DM that presented to the ED 07/19/2018 with fever, n/v, and weakness. Symptoms started Thursday and the patient was too weak to eat or go in for his PET scan Thursday. His blood glucose dropped to 50 and pt took some glucose pills. ROS General: no fever/chills, n/v, fatigue, weakness, night sweats CV: no chest pain Resp: SOB with exertion GI: no diarrhea, constipation : no dysuria, hematuria, nocturia Msk: muscle twitches, no muscle or joint pain Heme: easy bruising 2/2 Lovenox, no rashes Neuro: numbness/tingling 2/2 diabetic neuropathy 07/22/2018: This morning patient's blood glucose fell to 39. Pt felt fevered, nausea, and fatigue. Was given - Exam Vitals: Temp Pulse Resp BP Pulse Ox 100.9 F H 90 18 162/72 94 07/22/18 10:50 07/22/18 10:50 07/22/18 10:50 07/22/18 10:50 07/22/18 10:50 - Assessment and Plan (1) Sepsis Current Visit: Yes Status: Acute (2) Pneumonia Current Visit: Yes Status: Suspected (3) MARJAN (acute kidney injury) Current Visit: Yes Status: Acute (4) Hyponatremia Current Visit: Yes Status: Resolved (5) Pleural effusion Current Visit: Yes Status: Acute (6) Melanoma Current Visit: No Status: Acute (7) Orthostatic hypotension Current Visit: No Status: Acute (8) DVT prophylaxis Current Visit: Yes Status: Acute - Time Spent with Patient Total time spent is greater than 50% in coordination of care (as documented) at patient's floor/unit and/or counseling patient: Internal Medicine: Result - Labs CBC & Chem 7: 07/22/18 04:15 07/22/18 04:15 Labs: Short CBC 07/22/18 Range/Units 04:15 WBC 6.8 (4.3-11.1) K/mcL Hgb 10.4 L (12.9-16.9) g/dL Hct 31.5 L (37.5-50.1) % Plt Count 101 L (140-400) K/mcL Neutrophils # 5.2 (1.6-8.9) K/mcL [facility] 07/22/18 04:15 Sodium 137 Potassium 2.7 L Chloride 103 Carbon Dioxide 30 H BUN 10 Creatinine 0.73 Glucose 109 H Calcium 7.4 L Consult Discharge Plan - Plan [facility]errals: [facility] [Primary Care Provider] - (1) Sepsis Qualifiers: Sepsis type: sepsis due to unspecified organism Qualified Code(s): A41.9 - Sepsis, unspecified organism (2) Pneumonia Qualifiers: Pneumonia type: due to other aerobic Gram-negative bacteria Laterality: left Lung location: unspecified part of lung Qualified Code(s): J15.6 - Pneumonia due to other Gram-negative bacteria (6) Melanoma Qualifiers: Melanoma location: unspecified site Qualified Code(s): C43.9 - Malignant melanoma of skin, unspecified
[2018-07-22] MEDS ORDERED: Ringers Solution, Lactated 1,000 ML IVC ONE (17:35)
[2018-07-22] MEDS ORDERED: Ringers Solution, Lactated 1,000 ML IVC SCH (17:45)
[2018-07-22 20:46] LABS: BUN/Creatinine Ratio 11 (6-26); Blood Urea Nitrogen 11 mg/dL (6-20); Calcium 7.3 mg/dL (8.6-10.3); Carbon Dioxide 28 mEq/L (23-29); Chloride 101 mEq/L (98-107); Glucose 133 mg/dL (70-105); Magnesium 1.8 mg/dL (1.6-2.6); Osmolality,Calculated 283 (280-300); Phosphorous 2.2 mg/dL (2.7-4.5); Potassium 3.6 mEq/L (3.5-5.1); Sodium 136 mEq/L (136-145); eGFR For Non-African Americans > 60 (> 60)
[2018-07-23] MEDS: Piperacillin/Tazobactam 3.375 GM in 0.9 % Sodium Chloride Mini Bag 100 ML IVPB SCH ×2 (01:14→07:59)
[2018-07-23 04:24] LABS: Mean Platelet Volume 8.4 fL (9.4-12.4)
[2018-07-23 04:26] LABS: Basophils % 0.8 %; Hematocrit 34.8 % (37.5-50.1); Hemoglobin 11.6 g/dL (12.9-16.9); Immature Granulocytes % 5.9 % (0-4); Immature Platelets 1.3 % (1.1-6.1); Lymphocytes # 1.3 K/mcL (0.6-4.6); Lymphocytes % 24.1 %; Mean Corpuscular HGB Conc 33.3 g/dL (31.6-35.5); Mean Corpuscular Hemoglobin 29.1 pg (28.0-33.3); Mean Corpuscular Volume 87.2 fL (83.0-100.0); Monocytes # 0.3 K/mcL (0.0-1.3); Monocytes % 4.9 %; Neutrophils # 3.4 K/mcL (1.6-8.9); Platelet Count 104 K/mcL (140-400); Red Blood Count 3.99 M/mcL (4.19-5.50); Red Cell Distribution Width 14.6 % (11.5-14.5); Segmented Neutrophils % 64.3 %
[2018-07-23 04:39] LABS: BUN/Creatinine Ratio 10 (6-26); Blood Urea Nitrogen 9 mg/dL (6-20); Calcium 7.7 mg/dL (8.6-10.3); Carbon Dioxide 31 mEq/L (23-29); Chloride 104 mEq/L (98-107); Glucose 59 mg/dL (70-105); Magnesium 1.8 mg/dL (1.6-2.6); Osmolality,Calculated 286 (280-300); Phosphorous 1.9 mg/dL (2.7-4.5); Sodium 140 mEq/L (136-145); eGFR For Non-African Americans > 60 (> 60)
[2018-07-23] MEDS ORDERED: Potassium Phosphate 44 MEQ in 0.9 % Sodium Chloride 250 ML IVPB ONE (05:35)
[2018-07-23 05:49] LABS: Platelet Estimate Decreased (Normal)
[2018-07-23] MEDS: *HR* Enoxaparin 150 MG/ML SYRINGE SQ SCH (06:02)
[2018-07-23] MEDS: Insulin LISPRO 300 UNITS/3 ML VIAL SQ SCH ×3 (07:30→16:47)
[2018-07-23] MEDS ORDERED: Aminoglycoside Consult 1 EACH MC ONE (08:28)
[2018-07-23] MEDS ORDERED: Calcium Gluconate 2,000 MG in 0.9 % Sodium Chloride 100 ML IVPB ONE (09:07)
[2018-07-23] MEDS: Insulin DETEMIR 100 UNIT/ML X5UNITS SQ SCH (10:09)
[2018-07-23] MEDS: Hydrocortisone 10 MG TABLET PO SCH ×2 (10:09→16:48)
[2018-07-23] MEDS: Baclofen 10 MG TABLET PO SCH ×3 (10:09→21:09)
[2018-07-23] MEDS: Aspirin Enteric Coated 81 MG Tablet PO SCH (10:09)
[2018-07-23] MEDS: *HR* Amiodarone 200 MG TABLET PO SCH (10:09)
[2018-07-23] MEDS: levoFLOXacin 750 MG TABLET PO SCH (10:09)
[2018-07-23] MEDS: Acetaminophen 325 MG TABLET PO PRN ×2 (10:25→21:50)
[2018-07-23 10:45] LABS: VBG Ionized Calcium 1.03 mmol/L (1.15-1.35); VBG PH 7.42 pH Units (7.32-7.42)
--- NOTE | 2018-07-23 11:55 | Internal Med Progress Note ---
<Mariya Tomas R - Last Filed: 07/23/18 17:18> Hospitalist Progress Note - Encounter Date of Encounter: 07/23/18 Time of Encounter: 09:00 - Subjective Interval History: 07/21/18: Mr. Catherine is a 57 yr old male with a pmh of malignant melanoma of the adrenal glands and lungs, left-sided pleural drain placement, PE/DVT, a fib , T2DM that presented to the ED 07/19/2018 with fever, n/v, and weakness. Symptoms started Thursday and the patient was too weak to eat or go in for his PET scan Thursday. His blood glucose dropped to 50 and pt took some glucose pills. 07/22/18: At the time of admission, patient met criteria for sepsis, and was started on broad spectrum antibiotic therapy with levofloxacin, zosyn, and vancomycin for suspected HCAP. Patient initially demonstrated some improvement in symptoms, and was able to ambulate in the [place] yesterday with his walker and the assistance of his . 07/23/18: On exam today, pt is somnolent and covered up to his chin with his sheets. Pt states that he is very fatigued due to waking up every 30 minutes to urinate. He states that he does not have this problem at home and thinks this is due to the fluids he's been given at the hospital. No complaints of dysuria or hematuria. Reports nausea and vomiting 2x last night that looks "foamy." No fever/chills, diarrhea, constipation. ROS: General: no fever/chills, fatigue Skin: no bruises, rashes Head: no headache, lightheadedness CV: no chest pain, palpitations Resp: no SOB, cough GI: reports nausea, vomited 2x last night, chronic mid-epigastrium abd pain, no diarrhea or constipation : no hematuria, dysuria Neuro: chronic numbness and tingling 2/2 diabetic neuropathy Psych: no anxiety, depression - Exam Vitals: Temp Pulse Resp BP Pulse Ox 98.4 F 91 15 168/75 97 07/23/18 11:20 07/23/18 11:20 07/23/18 11:20 07/23/18 11:20 07/23/18 11:20 Exam: General: normal affect, in no acute distress Skin: no rashes, bruises Eyes: no conjunctival injection, no icterus ENT: no lymphadenoopathy, no thryomeagaly CV: RRR, no murmurs, no edema Resp: CTAB, no wheezes GI: mid-epigastrium tender upon palpation, normal bowel sounds - Assessment and Plan (1) Pneumonia Current Visit: Yes Status: Suspected Assessment and Plan: On initial evaluation in the ED, chest xray demonstrated left mid and lower lung airspace opacification, atelectasis, and/or pneumonia. Patient was also febrile and tachypneic, and was admitted for management of presumed HCAP. Patient's WBC on initial laboratory studies was 7.1, and has remained within normal limits, with most recent CBC showing WBC count of 5.3. Patient has not had a fever since yesterday, most recent temp 98.4 At this time patient not complaining of fever/chills, SOB, or cough with sputum production. On 07/20/18 he was started on broad antibiotic therapy with levofloxacin, vancomycin, and zosyn . To date, patient has received 4 days of antibiotic therapy. Descalate Vanc/Zosyn. Continue levofloxacin 750 mg daily. Add Augmentin 875 mg PO BIDWM. Tentatively plan antibiotic course of 7-10 days. Patient showing clinical signs of improvement. Tylenol PRN for fevers with careful watch for signs of worsening clinical status. (2) Sepsis Current Visit: Yes Status: Acute Assessment and Plan: At time of initial presentation, Mr. Catherine met sepsis criteria with a temperature of 102.9F, HR >90bpm, tachypnea, and xray findings consistent with pneumonia. Blood cultures were drawn prior to initiation of antibiotic therapy, with results pending. Current temp 98.4, HR 91, RR 15. No longer meets sepsis criteria. No fevers/chills, confusion, rash. See above for further details of management plan. (3) MARJAN (acute kidney injury) Current Visit: Yes Status: Acute Assessment and Plan: Initial laboratory studies demonstrated an elevated serum creatinine of 1.39, BUN 27. Now in the normal range with a BUN of 9 and creatinine of .88. Patient has received IV fluid hydration Will continue close monitoring of renal function and avoidance of nephrotoxic agents as possible. (4) Melanoma Current Visit: No Status: Acute Assessment and Plan: Patient has a known history of metastatic melanoma affecting the lungs and adrenal glands. Plan to continue home steroid regimen - fludrocortisone avetate 0.1mg BID, hydrocortisone 10mg QPM, and hydrocortisone 30mg QAM. (5) Electrolyte abnormality Current Visit: Yes Status: Acute Assessment and Plan: Patient's labs on admission demonstrated hyponatremia; most recent serum sodium at 140 demonstrates that the problem has resolved. Labs demonstrate hypokalemia (3, down from 3.6 yesterday), hypocalcemia (7.7, up from 7.3 yesterday), and hypophosphatemia (1.9, down from 2.2 yesterday). This morning was given potassium phosphate 260 mls at 40 mls/hr IVPB. Repeat phosphorous pending. Will continue to follow closely and replete electrolytes as necessary. (6) Diabetes mellitus type 2 with complications, uncontrolled Current Visit: No Status: Chronic Assessment and Plan: Medium-dose sliding scale insulin with meals and low-dose sliding scale insulin at bedtime. Patients has had incidents of hypoglycemia, both at home and during this admission. Blood glucose on admission 220, most recently has been hypoglycemia at 59. Hemoglobin A1c 7.2 on 07/20/18. WIll continue close monitoring of blood glucose with appropriate corrections as needed. (7) Atrial fibrillation Current Visit: Yes Status: Acute Assessment and Plan: Chronic. Continue home medication of amiodarone 200mg daily. Patient is anticoagulated with lovenox. (8) Dizziness Current Visit: Yes Status: Acute Assessment and Plan: Patient has a history of orthostatic hypotension; however, nursing staff reports that the patient has been complaining of dizziness when he turns his head from left to right. In light of his metastatic disease involving his adrenal glands and lungs, patient and his are understandably concerned about the potential for further metastasis. Noncontrasted brain/head MRI showed mild chronic white matter microvascular ischemic changes and no evidence of intracranial metasatic disease, however evaluation was limited by lack of IV contrast. Will consider repeat brain/head MRI with contrast if dizziness worsens. (9) Urinary frequency Current Visit: Yes Status: Acute Assessment and Plan: Pt states that he has to urinate every 30 minutes during the night, no increased urinary frequency during the day. This began when admitted to the hospital and is not a chronic problem. Suspect secondary to 2 L IV fluid. Today urine intake 3090, output 3900. Pt on Flomax .4 mg PO daily. Consider bladder scan if difficulty voiding. UA demonstrated protein 100, glucose 100, trace ketones, small amount of blood, small billirubin, microscopic RBCs 3-5, many squamous epithelial cells, few granular casts. Will repeat UA if pt begins having difficulty voiding or dysuria. (10) DVT prophylaxis Current Visit: Yes Status: Acute Assessment and Plan: Lovenox 150mg daily - Time Spent with Patient Total time spent is greater than 50% in coordination of care (as documented) at patient's floor/unit and/or counseling patient: Internal Medicine: Result - Labs CBC & Chem 7: 07/23/18 04:00 07/23/18 04:00 Labs: Short CBC 07/23/18 Range/Units 04:00 WBC 5.3 (4.3-11.1) K/mcL Hgb 11.6 L (12.9-16.9) g/dL Hct 34.8 L (37.5-50.1) % Plt Count 104 L (140-400) K/mcL Neutrophils # 3.4 (1.6-8.9) K/mcL BMP 07/22/18 07/23/18 18:45 04:00 Sodium 136 140 Potassium 3.6 D 3.0 L Chloride 101 104 Carbon Dioxide 28 31 H BUN 11 9 Creatinine 1.02 0.88 Glucose 133 H 59 L Calcium 7.3 L 7.7 L - Impressions Impressions Brain MRI 07/22/18 11:12 IMPRESSION: 1. Mild chronic white matter microvascular ischemic changes. 2. No evidence of intracranial metastatic disease, however evaluation is limited by lack of intravenous contrast. D/ / Wander Herron / Wander Herron Interpreting Provider: Wander Herron Consult Discharge Plan - Plan [facility]errals: [facility] [Primary Care Provider[facility] - <Paulo Chin - Last Filed: 07/23/18 18:17> Hospitalist Progress Note - Encounter Date of Encounter: 07/23/18 - Exam Vitals: Temp Pulse Resp BP Pulse Ox 97.6 F 76 16 125/71 97 07/23/18 15:33 07/23/18 15:33 07/23/18 15:33 07/23/18 15:33 07/23/18 15:33 - Assessment and Plan (1) Melanoma Current Visit: No Status: Acute (2) Diabetes mellitus type 2 with complications, uncontrolled Current Visit: No Status: Chronic (3) MARJAN (acute kidney injury) Current Visit: Yes Status: Acute (4) Pneumonia Current Visit: Yes Status: Suspected (5) Sepsis Current Visit: Yes Status: Acute (6) DVT prophylaxis Current Visit: Yes Status: Acute (7) Dizziness Current Visit: Yes Status: Acute (8) Electrolyte abnormality Current Visit: Yes Status: Acute (9) Atrial fibrillation Current Visit: Yes Status: Acute (10) Hypokalemia Current Visit: Yes Status: Acute Assessment and Plan: Persists today. (11) Hypophosphatemia Current Visit: Yes Status: Acute (12) Hypocalcemia Current Visit: Yes Status: Acute (13) Hypoglycemia Current Visit: Yes Status: Acute - Time Spent with Patient Total time spent is greater than 50% in coordination of care (as documented) at patient's floor/unit and/or counseling patient: Internal Medicine: Result - Labs CBC & Chem 7: 07/23/18 04:00 07/23/18 04:00 Labs: Short CBC 07/23/18 Range/Units 04:00 WBC 5.3 (4.3-11.1) K/mcL Hgb 11.6 L (12.9-16.9) g/dL Hct 34.8 L (37.5-50.1) % Plt Count 104 L (140-400) K/mcL Neutrophils # 3.4 (1.6-8.9) K/mcL BMP 07/22/18 07/23/18 18:45 04:00 Sodium 136 140 Potassium 3.6 D 3.0 L Chloride 101 104 Carbon Dioxide 28 31 H BUN 11 9 Creatinine 1.02 0.88 Glucose 133 H 59 L Calcium 7.3 L 7.7 L - Impressions Impressions Brain MRI 07/22/18 11:12 IMPRESSION: 1. Mild chronic white matter microvascular ischemic changes. 2. No evidence of intracranial metastatic disease, however evaluation is limited by lack of intravenous contrast. D/ / Wander Herron / Wander Herron Interpreting Provider: Wander Herron - Attending Attestation The history, physical exam, and medical decision making was performed by the medical student either while I was physically present and actively involved or I personally re-performed the exam and medical decision making. I have verified the accuracy of the medical student's documentation with regards to the history, physical exam findings, and medical decision making on 07/23/18. Mr Catherine is currently admitted for pneumonia. He remains moderate to high risk due to potential for worsening clinical status. Mr Catherine feels very tired. He has not been febrile today. No CP. Some nausea. No diarrhea Exam alert Resting comfortably Mucus membranes dry Heart not tachy No wheeze abd soft No edema No neuro deficit No rash I/P 1. Pneumonia 2. Melanoma Further diagnoses and plan as above. <Mariya Tomas - Last Filed: 07/23/18 17:18> (1) Pneumonia Qualifiers: Pneumonia type: due to other aerobic Gram-negative bacteria Laterality: left Lung location: unspecified part of lung Qualified Code(s): J15.6 - Pneumonia due to other Gram-negative bacteria (2) Sepsis Qualifiers: Sepsis type: sepsis due to unspecified organism Qualified Code(s): A41.9 - Sepsis, unspecified organism (4) Melanoma Qualifiers: Melanoma location: unspecified site Qualified Code(s): C43.9 - Malignant melanoma of skin, unspecified (7) Atrial fibrillation Qualifiers: Atrial fibrillation type: chronic Qualified Code(s): I48.2 - Chronic atrial fibrillation <Paulo Chin - Last Filed: 07/23/18 18:17> (1) Melanoma Qualifiers: Melanoma location: unspecified site Qualified Code(s): C43.9 - Malignant melanoma of skin, unspecified (4) Pneumonia Qualifiers: Pneumonia type: due to other aerobic Gram-negative bacteria Laterality: left Lung location: unspecified part of lung Qualified Code(s): J15.6 - Pneumonia due to other Gram-negative bacteria (5) Sepsis Qualifiers: Sepsis type: sepsis due to unspecified organism Qualified Code(s): A41.9 - Sepsis, unspecified organism (9) Atrial fibrillation Qualifiers: Atrial fibrillation type: chronic Qualified Code(s): I48.2 - Chronic atrial fibrillation
[2018-07-23] MEDS: Ondansetron 4 MG/2 ML VIAL IVP PRN ×2 (18:46→21:33)
[2018-07-23] MEDS ORDERED: Ondansetron Oral Soln 2 MG/2.5 ML ORAL.SYG PO ONE (19:08)
[2018-07-23 19:16] LABS: BUN/Creatinine Ratio 11 (6-26); Blood Urea Nitrogen 15 mg/dL (6-20); Calcium 7.9 mg/dL (8.6-10.3); Carbon Dioxide 30 mEq/L (23-29); Chloride 100 mEq/L (98-107); Glucose 145 mg/dL (70-105); Osmolality,Calculated 287 (280-300); Phosphorous 2.9 mg/dL (2.7-4.5); Potassium 3.2 mEq/L (3.5-5.1); Sodium 137 mEq/L (136-145); eGFR For Non-African Americans 56 (> 60)
[2018-07-24] MEDS: Potassium Chloride Elixir 20 MEQ/15 ML UDC PO SCH ×2 (00:09→09:07)
[2018-07-24] MEDS: Insulin LISPRO 300 UNITS/3 ML VIAL SQ SCH ×4 (00:34→18:11)
[2018-07-24 06:58] LABS: Eosinophils % 0.1 %
[2018-07-24 06:59] LABS: Basophils # 0.1 K/mcL (0.0-0.2); Basophils % 0.9 %; Hematocrit 33.8 % (37.5-50.1); Hemoglobin 11.2 g/dL (12.9-16.9); Immature Granulocytes % 5.2 % (0-4); Immature Platelets 2.2 % (1.1-6.1); Lymphocytes # 1.4 K/mcL (0.6-4.6); Lymphocytes % 20.1 %; Mean Corpuscular HGB Conc 33.1 g/dL (31.6-35.5); Mean Corpuscular Hemoglobin 28.5 pg (28.0-33.3); Mean Platelet Volume 9.1 fL (9.4-12.4); Monocytes # 0.3 K/mcL (0.0-1.3); Monocytes % 4.2 %; Neutrophils # 4.7 K/mcL (1.6-8.9); Red Blood Count 3.93 M/mcL (4.19-5.50); Red Cell Distribution Width 15.1 % (11.5-14.5); Segmented Neutrophils % 69.5 %
[2018-07-24 07:20] LABS: Calcium 8.1 mg/dL (8.6-10.3); Potassium 3.6 mEq/L (3.5-5.1)
[2018-07-24 07:38] LABS: Platelet Count 96 K/mcL (140-400)
[2018-07-24] MEDS: *HR* Enoxaparin 150 MG/ML SYRINGE SQ SCH (07:50)
[2018-07-24] MEDS: Ringers Solution, Lactated 1,000 ML IVC SCH ×2 (09:00→18:12)
[2018-07-24] MEDS: Acetaminophen 325 MG TABLET PO PRN ×2 (09:04→14:57)
[2018-07-24] MEDS: Baclofen 10 MG TABLET PO SCH ×2 (09:04→14:58)
[2018-07-24] MEDS: Multivit/Ca/Min/Fe/FA 1 TAB TABLET PO SCH (09:06)
[2018-07-24] MEDS: Aspirin Enteric Coated 81 MG Tablet PO SCH (09:06)
[2018-07-24] MEDS: *HR* Amiodarone 200 MG TABLET PO SCH (09:06)
[2018-07-24] MEDS: Hydrocortisone 10 MG TABLET PO SCH (09:07)
[2018-07-24] MEDS: levoFLOXacin 750 MG TABLET PO SCH (09:12)
--- NOTE | 2018-07-24 09:39 | Internal Med Progress Note ---
Hospitalist Progress Note - Encounter Date of Encounter: 07/24/18 Time of Encounter: 09:39 - Subjective Interval History: Mr Catherine is currently admitted for fever and presumptive pneumonia. He remains moderate to high risk due to potential for worsening clinical status. Mr Catherine was hypoglycemic again this AM. He continues to feel weak and nauseous. He is dizzy still and worse with turning head. He is not eating much. He still has abdominal pain. Denies CP or SOB. No diarrhea. No joint pain. Seems to be a little more confused today. is at bedside and relates that he has had hypoglycemia since being diagnosed with adrenal masses. He has had fevers off and on. His pleural fluid has been cultured in the past. - Exam Vitals: Temp Pulse Resp BP Pulse Ox 97.9 F 95 18 147/87 95 07/24/18 07:08 07/24/18 07:08 07/24/18 07:08 07/24/18 07:08 07/24/18 09:27 Exam: General: Alert. Seems more somnolent today though will respond to me. Comfortable at this time lying on his side. Skin: Normal color, no rash, no lesions. H: Normocephalic. EENT: EOMI, pupils round and reactive. Mucus membranes dry. No lesion. Cardiovascular: Normal S1 & S2, no rubs, murmurs or gallops. No JVD. Pulse regular. Not tachycardic at this time. Lungs: Normal breath sounds, no wheezes or crackles. Diminished bilaterally. Abdomen: Soft, no rigidity. Normal bowel sounds. Diffusely tender. Tender RUQ as well. Extremities: No deformity, no edema or tenderness, no joint swelling or clubbing. Neurological: Moves all extremities. Somnolent but arouses. No focal deficit noted. Pulses: Carotid and radial pulses normal +2. Rest of the physical exam is non contributory - Assessment and Plan (1) Acute renal failure Current Visit: Yes Status: Suspected Assessment and Plan: Pt has not been eating or drinking much. Fluids ordered and will follow renal function. (2) Secondary adrenal insufficiency Current Visit: Yes Status: Chronic Assessment and Plan: Related to metastatic melanoma. Concerned that a lot of his symptoms (weakness, nausea, abdominal pain, dizziness, fever) may be related to uncontrolled state. PO Cortef discontinued. IV supplement ordered. (3) Hypoglycemia Current Visit: Yes Status: Acute Assessment and Plan: Chronic issue due to adrenal insufficiency. Long acting insulin on hold as he is not eating much. (4) Diabetes mellitus type 2 with complications, uncontrolled Current Visit: No Status: Chronic Assessment and Plan: Glucose has been low during the night and in early AM (prolonged time not eating ). Will be high during the day - At this time he is not eating much so will hold long acting insulin and just use sliding scale. (5) Melanoma Current Visit: No Status: Chronic Assessment and Plan: Patient has a known history of metastatic melanoma affecting the lungs and adrenal glands. Fever may be related to melanoma. If no other source found will most likely contact his oncologist in [facility]. (6) Pneumonia Current Visit: Yes Status: Suspected Assessment and Plan: On initial evaluation in the ED, chest xray demonstrated left mid and lower lung airspace opacification, atelectasis, and/or pneumonia. Patient was also febrile and tachypneic, and was admitted for management of presumed HCAP. He was started on broad antibiotic therapy with levofloxacin, vancomycin, and zosyn on 07/20. To date, patient has received 4 days of antibiotic therapy. His WBC has remained normal. All cultures have been negative as well. Continues to have episodes of fever. Will stop Vancomycin and continue other abx for now. Culture pleural fluid when drained. (7) Sepsis Current Visit: Yes Status: Resolved (8) DVT prophylaxis Current Visit: Yes Status: Acute Assessment and Plan: Lovenox 150mg daily. (9) Dizziness Current Visit: Yes Status: Acute Assessment and Plan: Continues to have dizziness when turns heard. MRI negative for mets. This may be related to adrenal insufficiency. (10) Atrial fibrillation Current Visit: Yes Status: Chronic Assessment and Plan: Continue home medication of amiodarone 200mg daily. Patient is anticoagulated with lovenox. (11) Hypokalemia Current Visit: Yes Status: Resolved Assessment and Plan: Resolved today. Following. (12) Hypophosphatemia Current Visit: Yes Status: Resolved Assessment and Plan: Recheck tomorrow. (13) Hypocalcemia Current Visit: Yes Status: Resolved Assessment and Plan: Recheck tomorrow. - Time Spent with Patient Total time spent is greater than 50% in coordination of care (as documented) at patient's floor/unit and/or counseling patient: Internal Medicine: Result - Labs CBC & Chem 7: 07/24/18 04:00 07/24/18 04:00 Labs: BMP 07/23/18 07/24/18 17:30 04:00 Sodium 137 138 Potassium 3.2 L 3.6 Chloride 100 102 Carbon Dioxide 30 H 28 BUN 15 20 Creatinine 1.32 H 2.10 H Glucose 145 H 50 L Calcium 7.9 L 8.1 L Consult Discharge Plan - Plan [facility]errals: [facility] [Primary Care Provider] - (1) Acute renal failure Qualifiers: Acute renal failure type: with acute tubular necrosis Qualified Code(s): N17.0 - Acute kidney failure with tubular necrosis (5) Melanoma Qualifiers: Melanoma location: unspecified site Qualified Code(s): C43.9 - Malignant melanoma of skin, unspecified (6) Pneumonia Qualifiers: Pneumonia type: due to other aerobic Gram-negative bacteria Laterality: left Lung location: lower lobe of lung Qualified Code(s): J15.6 - Pneumonia due to other Gram-negative bacteria (7) Sepsis Qualifiers: Sepsis type: sepsis due to unspecified organism Qualified Code(s): A41.9 - Sepsis, unspecified organism (10) Atrial fibrillation Qualifiers: Atrial fibrillation type: chronic Qualified Code(s): I48.2 - Chronic atrial fibrillation
[2018-07-24 09:40] LABS: Platelet Estimate Slight Decrease (Normal)
[2018-07-24 09:41] LABS: Anisocytosis 1+ (Not Present); Polychromasia 1+ (Not Present)
[2018-07-24] MEDS ORDERED: *HR* Promethazine 25 MG/ML VIAL ONE (12:07)
[2018-07-24] MEDS: Hydrocortisone Sodium Succ 100 MG/2 ML VIAL IVP SCH ×2 (12:16→18:10)
[2018-07-24] MEDS: Promethazine 12.5 MG in 0.9 % Sodium Chloride 50 ML IVPB PRN (14:58)
[2018-07-24] MEDS ORDERED: Hydrocortisone Sodium Succ 100 MG/2 ML VIAL IVP SCH (16:00)
[2018-07-25] MEDS: Insulin LISPRO 300 UNITS/3 ML VIAL SQ SCH ×4 (01:16→17:31)
[2018-07-25] MEDS: Potassium Chloride Elixir 20 MEQ/15 ML UDC PO SCH (01:17)
[2018-07-25] MEDS: Baclofen 10 MG TABLET PO SCH ×3 (01:17→17:29)
[2018-07-25] MEDS: Hydrocortisone Sodium Succ 100 MG/2 ML VIAL IVP SCH ×4 (01:42→17:30)
[2018-07-25] MEDS: Ondansetron 4 MG/2 ML VIAL IVP PRN ×2 (03:57→09:11)
[2018-07-25] MEDS ORDERED: GI Cocktail 40 ML EACH PO ONE (05:38)
[2018-07-25 06:30] LABS: Red Cell Distribution Width 15.1 % (11.5-14.5)
[2018-07-25 06:32] LABS: Hematocrit 33.5 % (37.5-50.1); Hemoglobin 11.1 g/dL (12.9-16.9); Immature Platelets 2.1 % (1.1-6.1); Mean Corpuscular HGB Conc 33.1 g/dL (31.6-35.5); Mean Corpuscular Hemoglobin 29.3 pg (28.0-33.3); Mean Corpuscular Volume 88.4 fL (83.0-100.0); Mean Platelet Volume 9.5 fL (9.4-12.4); Red Blood Count 3.79 M/mcL (4.19-5.50)
[2018-07-25 07:07] LABS: Albumin 2.7 g/dL (3.5-5.7); Albumin/Globulin Ratio 0.9 (1.1-2.2); Bilirubin,Total 0.7 mg/dL (0.3-1.0); Calcium 7.7 mg/dL (8.6-10.3); Phosphorous 6.3 mg/dL (2.7-4.5); Potassium 4.9 mEq/L (3.5-5.1); Total Protein 5.7 g/dL (6.4-8.9)
[2018-07-25] MEDS ORDERED: *HR* Morphine 2 MG/ML SYRINGE IVP ONE (07:22)
[2018-07-25] MEDS: *HR* Enoxaparin 150 MG/ML SYRINGE SQ SCH (09:10)
--- NOTE | 2018-07-25 10:45 | Internal Med Progress Note ---
Hospitalist Progress Note - Encounter Date of Encounter: 07/25/18 Time of Encounter: 10:20 - Subjective Interval History: Mr Catherine is currently admitted for fever and presumptive pneumonia. He remains moderate to high risk due to potential for worsening clinical status. Mr Catherine had significant abdominal pain last night. Takes Aleve at home. No fever or chills. Blood sugar higher most likely due to combination of holding insulin and increasing steroids. Had HIDA this AM and neg for acute cholecystitis. Resting now from morphine given during test. Drank a lot this morning since returning from test. No CP or SOB at this time. Still says he has abdominal pain. No diarrhea. - Exam Vitals: Temp Pulse Resp BP Pulse Ox 97.5 F L 78 16 158/83 96 07/25/18 08:42 07/25/18 08:42 07/25/18 08:42 07/25/18 08:42 07/25/18 08:42 Exam: General: Alert. Somnolent from morphine given. Skin: Normal color, no rash, no lesions. H: Normocephalic. EENT: EOMI, pupils round and reactive. Mucus membranes dry. No lesion. Cardiovascular: Normal S1 & S2, no rubs, murmurs or gallops. No JVD. Pulse regular. Not tachy. Lungs: Normal breath sounds, no wheezes or crackles. Diminished bilaterally. Abdomen: Soft, no rigidity. Normal bowel sounds. Appears to be less tender at this time. Extremities: No deformity, no edema or tenderness, no joint swelling or clubbing. Neurological: Moves all extremities. Somnolent but arouses. No focal deficit noted. Pulses: Carotid and radial pulses normal +2. Rest of the physical exam is non contributory - Assessment and Plan (1) Acute renal failure Current Visit: Yes Status: Suspected Assessment and Plan: Creatinine worsened more today. He is nonoliguric at this point. Has been receiving fluids. Has received contrast this admit as well as Vancomycin. Will ask for nephrology to see for further recommendations. Recheck bmp later as potassium has increased as well. (2) Secondary adrenal insufficiency Current Visit: Yes Status: Chronic Assessment and Plan: Related to metastatic melanoma. Blood sugars have elevated with steroids. Will decrease to 50mg IV q8h (3) Hypoglycemia Current Visit: Yes Status: Acute Assessment and Plan: Chronic issue due to adrenal insufficiency. Blood sugars now markedly elevated. Will start back smaller amount of Levimir. (4) Diabetes mellitus type 2 with complications, uncontrolled Current Visit: No Status: Chronic Assessment and Plan: Glucose has been low during the night and in early AM (prolonged time not eating ). Will be high during the day - Much higher now. Change SSI. (5) Melanoma Current Visit: No Status: Chronic Assessment and Plan: Patient has a known history of metastatic melanoma affecting the lungs and adrenal glands. 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 Will attempt to call tomorrow. (6) Sepsis Current Visit: Yes Status: Resolved (7) DVT prophylaxis Current Visit: Yes Status: Acute Assessment and Plan: Lovenox 150mg daily. (8) Dizziness Current Visit: Yes Status: Acute Assessment and Plan: No change at this point. (9) Atrial fibrillation Current Visit: Yes Status: Chronic Assessment and Plan: Continue home medication of amiodarone 200mg daily. Patient is anticoagulated with lovenox. (10) Pneumonia Current Visit: Yes Status: Suspected Assessment and Plan: On initial evaluation in the ED, chest xray demonstrated left mid and lower lung airspace opacification, atelectasis, and/or pneumonia. Patient was also febrile and tachypneic, and was admitted for management of presumed HCAP. He was started on broad antibiotic therapy with levofloxacin, vancomycin, and zosyn on 07/20. To date, patient has received 4 days of antibiotic therapy. His WBC has remained normal. All cultures have been negative as well. No further fever now. Pleural fluid culture pending. Augmentin stopped (had abdominal pain last night). Continue Levaquin - renal dose adjusted. - Time Spent with Patient Total time spent is greater than 50% in coordination of care (as documented) at patient's floor/unit and/or counseling patient: Internal Medicine: Result - Labs CBC & Chem 7: 07/25/18 04:00 07/25/18 04:00 Labs: Short CBC 07/25/18 Range/Units 04:00 WBC 6.4 (4.3-11.1) K/mcL Hgb 11.1 L (12.9-16.9) g/dL Hct 33.5 L (37.5-50.1) % Plt Count 84 L (140-400) K/mcL BMP 07/25/18 04:00 Sodium 135 L Potassium 4.9 D Chloride 100 Carbon Dioxide 21 L BUN 47 H Creatinine 3.11 H Glucose 446 H Calcium 7.7 L Liver Function 07/25/18 Range/Units 04:00 Total Bilirubin 0.7 (0.3-1.0) mg/dL AST 82 H (13-39) Units/L ALT 90 H (7-52) Units/L Alkaline Phosphatase 518 H (34-104) Units/L Albumin 2.7 L (3.5-5.7) g/dL - Impressions Impressions Bile Acid Absorption NM 07/25/18 06:45 IMPRESSION: No convincing scintigraphic evidence of acute cholecystitis. D/ /25/2018 08:50:13 Demario Leavitt MD / bcarter Interpreting Provider: Demario Leavitt MD Consult Discharge Plan - Plan [facility]errals: [facility] [Primary Care Provider] - (1) Acute renal failure Qualifiers: Acute renal failure type: with acute tubular necrosis Qualified Code(s): N17.0 - Acute kidney failure with tubular necrosis (5) Melanoma Qualifiers: Melanoma location: unspecified site Qualified Code(s): C43.9 - Malignant melanoma of skin, unspecified (6) Sepsis Qualifiers: Sepsis type: sepsis due to unspecified organism Qualified Code(s): A41.9 - Sepsis, unspecified organism (9) Atrial fibrillation Qualifiers: Atrial fibrillation type: chronic Qualified Code(s): I48.2 - Chronic atrial fibrillation (10) Pneumonia Qualifiers: Pneumonia type: due to other aerobic Gram-negative bacteria Laterality: left Lung location: lower lobe of lung Qualified Code(s): J15.6 - Pneumonia due to other Gram-negative bacteria
[2018-07-25] MEDS ORDERED: *HR* HYDROcodone/Acet 5/325 mg TABLET PO PRN (10:47)
[2018-07-25] MEDS: Multivit/Ca/Min/Fe/FA 1 TAB TABLET PO SCH (11:05)
[2018-07-25] MEDS: Aspirin Enteric Coated 81 MG Tablet PO SCH (11:05)
[2018-07-25] MEDS: levoFLOXacin 750 MG TABLET PO SCH (11:06)
[2018-07-25] MEDS: *HR* Amiodarone 200 MG TABLET PO SCH (11:06)
[2018-07-25] MEDS: Insulin DETEMIR 100 UNIT/ML X5UNITS SQ SCH (11:07)
--- NOTE | 2018-07-25 11:17 | Nephrology Consult Note ---
Date of Encounter: 07/25/18 Time of Encounter: 10:59 Assessment and Plan (1) MARJAN (acute kidney injury) Current Visit: Yes Status: Acute Patient with multifactorial acute kidney injury related to contrast exposure, vancomycin use, nausea and vomiting and relatively low blood pressure. His urine output on 07/23/18 was nonoliguric, but we need accurate Is and Os given the rapid decline of his renal function. No acute need for dialysis, but if no improvement in the next few days I suspect he will need renal replacement therapy. Work-up ordered including urine studies and renal ultrasound. I recommend maintaining a volume positive state for now. Will monitor for the need for a renal biopsy. (2) Diabetes mellitus type 2, uncomplicated Current Visit: No Status: Chronic Per primary team. Qualifiers: Qualified Code(s): E11.9 - Type 2 diabetes mellitus without complications (3) Pulmonary emboli Current Visit: No Status: Resolved Per primary team Qualifiers: Pulmonary embolism type: other Chronicity: unspecified Acute cor pulmonale presence: without acute cor pulmonale Qualified Code(s): I26.99 - Other pulmonary embolism without acute cor pulmonale (4) Anemia Current Visit: Yes Status: Acute per the primary team. no active bleeding. Qualifiers: Qualified Code(s): D64.9 - Anemia, unspecified History of Present Illness - Reason for Consult Consult date: 07/25/18 Acute Kidney Injury - Chief Complaint MARJAN - History of Present Illness Mr. Catherine is a 57 yo man with a history of cancer who presents with abdominal discomfort, nausea and vomiting. Most of the story is from his as he is sedated from morphine given earlier today. The patient has had abdominal discomfort along with bloating for about a month. She reports he has had nausea and vomiting , but no diarrhea or constipation. No chest pain. He has a history of orthostatic hypotension. He had an episode where he was staring into space with his eyes open, but not blinking or responding to stimuli a few days ago. He has had decreased oral intake. Patient developed MARJAN after CTA in the ER and vancomycin given for infection. [facility] was consulted to assist with management. Past Med Surg Social Fam HX - Past Medical History Medical history: cancer, DVT, diabetes, pulmonary embolus, other Additional medical history: adrenal gland and left lung cancer, skin cancer Psychiatric history: no psych history - Past Surgical History Surgical History: cancer surgery, other (melanoma and lymph node resection, right cheek bone reconstruction, b/l hernia repair as a child) Additional surgical history: skin cancer removed, lymph nodes removed from left side, left pleurax catheter - Social History Smoking Status: Never smoker Smokeless Tobacco Status: No Alcohol use: none Drug use: none - Family History Maternal Grandmother Hx Family Cancer: Yes Medications and Allergies Amiodarone [Cordarone] 200 mg PO DAILY 06/01/18 [History] Fludrocortisone Acetate [Florinef] 0.1 mg PO BID 06/01/18 [History] Metoprolol [Lopressor] 12.5 mg PO BID 06/01/18 [History] Multivit-Min/FA/Lycopen/Lutein [A Thru Z Select Multivit Tab] 1 tab PO DAILY [History] Naproxen 375 mg PO BID PRN 06/01/18 [History] Ondansetron HCl [Zofran] 4 mg PO Q8HR PRN 06/01/18 [History] Saxagliptin HCl [Onglyza] 5 mg PO DAILY 06/01/18 [History] Aspirin Enteric Coated [Aspirin EC] 81 mg PO DAILY 07/19/18 [History] Baclofen [Lioresal] 10 mg PO TID 07/19/18 [History] Enoxaparin [Lovenox] 150 mg SQ DAILY 07/19/18 [History] Hydrocortisone [Cortef] 10 mg PO QPM 07/19/18 [History] Hydrocortisone [Cortef] 30 mg PO QAM 07/19/18 [History] Insulin Glargine,Hum.rec.anlog [Lantus Solostar] 10 unit SQ DAILY 07/19/18 [ History] Pantoprazole Sodium [Protonix] 20 mg PO DAILY 07/19/18 [History] Tamsulosin HCl [Flomax] 0.4 mg PO DAILY 07/19/18 [History] metFORMIN [Glucophage] 500 mg PO DAILY 07/19/18 [History] 3 Allergy/AdvReac Type Severity Reaction Status Date / Time No Known Allergies Allergy Verified 06/13/15 14:30 Review of Systems All Systems: reviewed and no additional remarkable complaints except as stated ( as documented on HPI) Exam - Vital Signs Vital signs: Initial Vital Signs Temp Pulse Resp BP Pulse Ox 102.9 F H 96 25 174/86 100 07/19/18 19:32 07/19/18 19:32 07/19/18 19:32 07/19/18 19:32 07/19/18 19:32 Vital Signs - Last 8 Hours Temp Pulse Resp BP Pulse Ox 07/25/18 08:42 97.5 F L 78 16 158/83 96 Intake and Output 07/24/18 07/25/18 07/25/18 23:59 07:59 15:59 Intake Total 1000 / 1000 Balance 1000 / 1000 Intake: IV Fluids 1000 / 1000 Lactated Ringers 1,000 ML @ 100 1000 / 1000 mls/hr IVC .Q10H MARLA Rx#: [id number] Other: Stool Size Moderate Stool Consistency soft Stool Color Brown # Urine Diapers 1 # Bowel Movement Diapers 1 Blood Glucose* [phone] - General Appearance General appearance: well-developed, well-nourished Exam: Patient is asleep secondary to morphine given today for his procedure. Neck: supple Respiratory: course breath sounds Cardiology: no edema, regular rate Gastrointestinal: obese Integumentary: warm and dry Neurologic: alert and oriented x3 Musculoskeletal: no cyanosis Psychiatric: mood/affect appropriate Results - Lab Results 07/25/18 04:00 07/25/18 04:00 Most recent lab results Calcium 7.7 mg/dL (8.6-10.3) L 07/25/18 04:00 Phosphorus 6.3 mg/dL (2.7-4.5) H 07/25/18 04:00 Magnesium 2.0 mg/dL (1.6-2.6) 07/25/18 04:00 Consult Discharge Plan - Plan [facility] [Primary Care Provider[facility] -
[2018-07-25] MEDS ORDERED: Insulin Regular, Human 100 UNIT/ML SQ ONE (13:48)
[2018-07-25] MEDS: Promethazine 12.5 MG in 0.9 % Sodium Chloride 50 ML IVPB PRN (14:36)
[2018-07-25] MEDS: Ringers Solution, Lactated 1,000 ML IVC SCH ×2 (17:27→17:28)
[2018-07-25] MEDS ORDERED: *HR* Promethazine 25 MG/ML VIAL IVP PRN (18:08)
[2018-07-26] MEDS: Hydrocortisone Sodium Succ 100 MG/2 ML VIAL IVP SCH ×3 (02:05→18:02)
[2018-07-26] MEDS: Insulin LISPRO 300 UNITS/3 ML VIAL SQ SCH ×5 (02:14→21:47)
[2018-07-26] MEDS: Baclofen 10 MG TABLET PO SCH ×4 (02:15→21:47)
[2018-07-26 06:39] LABS: Hematocrit 33.5 % (37.5-50.1); Hemoglobin 11.3 g/dL (12.9-16.9); Immature Platelets 2.4 % (1.1-6.1); Mean Corpuscular HGB Conc 33.7 g/dL (31.6-35.5); Mean Corpuscular Hemoglobin 29.4 pg (28.0-33.3); Mean Platelet Volume 9.4 fL (9.4-12.4); Red Blood Count 3.85 M/mcL (4.19-5.50); Red Cell Distribution Width 15.4 % (11.5-14.5)
[2018-07-26 06:57] LABS: Calcium 7.8 mg/dL (8.6-10.3); Potassium 4.5 mEq/L (3.5-5.1)
[2018-07-26] MEDS: *HR* Enoxaparin 150 MG/ML SYRINGE SQ SCH (07:03)
--- NOTE | 2018-07-26 08:43 | Internal Med Progress Note ---
Hospitalist Progress Note - Encounter Date of Encounter: 07/26/18 Time of Encounter: 08:43 - Subjective Interval History: Mr. Catherine is a 57-year old male who presented to the ED on 07/19 complaining of persistent nausea, vomiting, and fevers x 3 days. Family also reported progressive weakness, and his noted him "staring into space", which prompted her to call EMS. Per H&P, patient was experiencing fevers of up to 102F at home. His past medical history is signficant for malignant melanoma with metastasis to lung and bilateral adrenal glands, left-sided pleurex drain due to malignant effusion, atrial fibrillation, diabetes mellitus, and DVT/PE. Initial laboratory workup revealed the following abnormalities: WBC 7.1, Hgb/ Hct 12.2/36.5, platelets 124, sodium 128, chloride 93, BUN 27, creatinine 1.39, calculated osmolality 278, calcium 7.9, total bilirubin 1.2, direct bilirubin 0.5, AST 172, ALT 136, alkaline phosphatase 505, serum total protein 6.1, and albumin 2.9. Further workup revealed the following significant findings: * Urinalysis - 100 protein, 100 glucose, trace ketones, small blood (3-5 microscopic WBCs), small bilirubin, and few granular casts. * Chest Xray - Left pleural catheter in place and left mid and lower lung airspace opacification, atelectasis, and/or pneumonia. * Chest CTA - Left hilar/infrahilar mass measuring 3.6 x 3.9cm and encasement of pulmonary vasculature. Left-sided pleural effusion and adjacent atelectasis/ scarring was noted, as was mediastinal lymphadenopathy. * CT abdomen/pelvis - Interval decrease in size of bilateral adrenal gland masses. * Gallbladder US - Sludge without corresponding inflammatory changes or bile duct dilation. Right retroperitoneal mass was also noted along the superior medial margin of the kidney, which was correlated to known adrenal masses. At the time of admission, patient met criteria for sepsis, and was started on broad spectrum antibiotic therapy with levofloxacin, zosyn, and vancomycin for suspected HCAP. Patient initially demonstrated some improvement in symptoms, and was able to ambulate in the [place] with his walker and the assistance of his . Over the weekend, he developed worsening abdominal pain and acute kidney injury. Nursing staff reports having placed a ontiveros catheter yesterday with immediate return of ~1900mL urine. Nephrology was consulted. On examination today, Mr. Catherine is lying in bed with nursing staff present. They note that he is improved from yesterday, and he denies any acute concerns. He did request oatmeal this morning, which was noted due to his lack of appetite over the weekend. Patient and his request transfer to [facility] in order to be near his oncology team. - Exam Vitals: Temp Pulse Resp BP Pulse Ox 97.5 F L 75 16 207/107 96 07/26/18 06:53 07/26/18 06:53 07/26/18 06:53 07/26/18 06:53 07/26/18 06:53 Exam: * General: Ill-appearing adult male resting in bed. He does not appear to be in acute distress. * HEENT: Atraumatic and normocephalic. * Cardiovascular: Regular rate and rhythm. S1 and S2 present. No murmurs, rubs, or gallops. * Respiratory: CTA bilaterally. Chest rises and falls symmetrically. * Gastrointestinal: Soft and nontender. * Extremities: No clubbing, cyanosis, or edema. - Assessment and Plan (1) Acute renal failure Current Visit: Yes Status: Suspected Assessment and Plan: Over the weekend, patient developed MARJAN with elevated creatinine and oliguria. Nursing staff reports that catheter was placed last night for strict I/Os, with immediate collection of ~1900mL urine. Creatinine further worsened today at 3.39. Currently holding nephrotoxic agents and renally dosing medications as approprite. Appreciate nephrology input on this problem. (2) Pneumonia Current Visit: Yes Status: Suspected Assessment and Plan: On initial evaluation in the ED, chest xray demonstrated left mid and lower lung airspace opacification, atelectasis, and/or pneumonia. Patient was also febrile and tachypneic, and was admitted for management of presumed HCAP. He was started on broad antibiotic therapy with levofloxacin, vancomycin, and zosyn on 07/20. To date, patient has received 3 days of antibiotic therapy. Patient's WBC on initial laboratory studies was 7.1, and has remained within normal limits, with most recent CBC showing WBC count of 6.8. Nursing staff reported that the patient was again running a fever late this morning, and he was given tylenol 650mg. Temperature continued to increase, with reading of 101.2F in the early afternoon. Patient denies any worsening shortness of breath or sputum production. Will continue current antibiotic therapy and tylenol PRN for fevers with careful watch for signs of worsening clinical status. 07/26 - Augmentin d/c secondary to abdominal pain. Levaquin dose renally adjusted in light of the patient's MARJAN. Cultures negative to date. Pleural fluid culture pending. Will continue current antibiotic management. (3) Secondary adrenal insufficiency Current Visit: Yes Status: Chronic Assessment and Plan: Currently on hydrocortisone 50mg IVP Q8H. Fludrocortisone on hold secondary to elevated BP. (4) Melanoma Current Visit: No Status: Chronic Assessment and Plan: Patient's oncologist is through [facility]. Call placed to their office today to notify them of patient's current hospitalization. Patient and his are requesting transfer to [place] to be closer to oncology team. Transfer center has been notified - results of bed request pending. (5) Diabetes mellitus type 2 with complications, uncontrolled Current Visit: No Status: Chronic Assessment and Plan: Patient has had recent hyperglycemia. Will continue high-dose SSI TIDAC and HS medium-dose SSI. (6) Atrial fibrillation Current Visit: Yes Status: Chronic Assessment and Plan: Continue home medication of amiodarone 200mg daily. (7) DVT prophylaxis Current Visit: Yes Status: Acute Assessment and Plan: Patient normally takes lovenox; however, holding that medication secondary to current MARJAN. Heparin gtt to start at 1700 today for further anticoagulation and DVT prophylaxis. - Time Spent with Patient Total time spent is greater than 50% in coordination of care (as documented) at patient's floor/unit and/or counseling patient: Internal Medicine: Result - Labs CBC & Chem 7: 07/26/18 05:00 07/26/18 05:00 Labs: Short CBC 07/26/18 Range/Units 05:00 WBC 9.9 D (4.3-11.1) K/mcL Hgb 11.3 L (12.9-16.9) g/dL Hct 33.5 L (37.5-50.1) % Plt Count 92 L (140-400) K/mcL BMP 07/26/18 05:00 Sodium 138 Potassium 4.5 Chloride 102 Carbon Dioxide 30 H BUN 62 H Creatinine 3.39 H Glucose 219 H Calcium 7.8 L - Impressions Impressions Bile Acid Absorption NM 07/25/18 06:45 IMPRESSION: No convincing scintigraphic evidence of acute cholecystitis. D/ /25/2018 08:50:13 Demario Leavitt MD / lizzie Interpreting Provider: Demario Leavitt MD Consult Discharge Plan - Plan [facility]errals: [facility] [Primary Care Provider] - (1) Acute renal failure Qualifiers: Acute renal failure type: with acute tubular necrosis Qualified Code(s): N17.0 - Acute kidney failure with tubular necrosis (2) Pneumonia Qualifiers: Pneumonia type: due to other aerobic Gram-negative bacteria Laterality: left Lung location: lower lobe of lung Qualified Code(s): J15.6 - Pneumonia due to other Gram-negative bacteria (4) Melanoma Qualifiers: Melanoma location: unspecified site Qualified Code(s): C43.9 - Malignant melanoma of skin, unspecified (6) Atrial fibrillation Qualifiers: Atrial fibrillation type: chronic Qualified Code(s): I48.2 - Chronic atrial fibrillation
[2018-07-26] MEDS: Multivit/Ca/Min/Fe/FA 1 TAB TABLET PO SCH (09:20)
[2018-07-26] MEDS: Acetaminophen 325 MG TABLET PO PRN (09:20)
[2018-07-26] MEDS: *HR* Amiodarone 200 MG TABLET PO SCH (09:20)
[2018-07-26] MEDS: Aspirin Enteric Coated 81 MG Tablet PO SCH (09:21)
[2018-07-26] MEDS: Insulin DETEMIR 100 UNIT/ML X5UNITS SQ SCH (09:29)
[2018-07-26 09:48] LABS: VBG Ionized Calcium 1.07 mmol/L (1.15-1.35)
[2018-07-26 10:06] LABS: VBG Ionized Calcium 0.77 mmol/L (1.15-1.35)
--- NOTE | 2018-07-26 10:12 | Nephrology Progress Note ---
Date of Encounter: 07/26/18 Time of Encounter: 10:10 - Assessment and Plan (1) MARJAN (acute kidney injury) Current Visit: Yes Status: Acute Patient with multifactorial acute kidney injury related to contrast exposure, vancomycin use, nausea and vomiting and relatively low blood pressure. Scr is up at 3.39 and GFR is down at 19. Uop is 1600 since midnight last night, yesterday pt was oliguric per I/O. Work-up ordered including urine studies and renal ultrasound. IVF d/gabo due to HTN BP is 207/107. Will monitor for the need for a renal biopsy. (2) Pulmonary emboli Current Visit: No Status: Resolved Per primary team. Would caution use of Lovenox, given his kidney function, would recommend Heparin gtt. Qualifiers: Pulmonary embolism type: other Chronicity: unspecified Acute cor pulmonale presence: without acute cor pulmonale Qualified Code(s): I26.99 - Other pulmonary embolism without acute cor pulmonale (3) Diabetes mellitus type 2, uncomplicated Current Visit: No Status: Chronic Per primary team. Qualifiers: Qualified Code(s): E11.9 - Type 2 diabetes mellitus without complications Subjective Principal diagnosis: general weakness Interval history: Pt seen and examined, doing well. Denies CP/SOB. Denies nausea/vomiting diarrhea. Objective - Vital Signs Vital signs: Vital Signs Temp Pulse Resp BP Pulse Ox 07/26/18 06:53 97.5 F L 75 16 207/107 96 07/26/18 04:45 97.1 F L 74 18 173/91 99 07/25/18 21:37 98 F 67 17 172/93 97 07/25/18 15:33 97.7 F 58 16 124/71 99 07/25/18 11:26 97.5 F L 72 16 149/85 95 Intake and Output 07/25/18 07/26/18 07/26/18 23:59 07:59 15:59 Intake Total 480 / 480 Output Total 800 / 800 800 / 800 Balance -320 / -320 -800 / -800 Intake: Oral 480 / 480 Output: Catheter 800 / 800 800 / 800 Other: Meal Dinner Percent of Meal Consumed 0% Stool Size Moderate Stool Consistency soft Stool Color Brown # Bowel Movements 1 Weight 85.6 kg Blood Glucose* [phone] Patient Weight 07/26/18 23:59 Weight 85.6 kg - General Appearance General appearance: Present: well-developed, well-nourished EENT: Present: ATNC, hearing intact, vision intact Neck: Present: supple Respiratory: Present: clear Cardiology: Present: edema, normal S1, normal S2 Gastrointestinal: Present: normoactive bowel sounds, no tenderness, no guarding Integumentary: Present: no rash, warm and dry Neurologic: Present: alert and oriented x3 Psychiatric: Present: mood/affect appropriate, cooperative - Lab 07/26/18 05:00 07/26/18 05:00 Most recent lab results Calcium 7.8 mg/dL (8.6-10.3) L 07/26/18 05:00 Phosphorus 6.3 mg/dL (2.7-4.5) H 07/25/18 04:00 Magnesium 2.0 mg/dL (1.6-2.6) 07/25/18 04:00 Consult Discharge Plan - Plan [facility]errals: [facility] [Primary Care Provider] -
[2018-07-26] MEDS ORDERED: Calcium Gluconate 2,000 MG in 0.9 % Sodium Chloride 100 ML IVPB ONE (10:51)
[2018-07-26] MEDS ORDERED: *HR* Heparin 5,000 UNIT/ML VIAL IVP ONE ×2 (11:17→19:00)
[2018-07-26] MEDS ORDERED: *HR* Heparin 5,000 UNIT/ML VIAL IVP PRN ×4 (11:17→19:00)
[2018-07-26] MEDS: Ondansetron 4 MG/2 ML VIAL IVP PRN (11:21)
[2018-07-26] MEDS ORDERED: Heparin 25,000 UNIT/500 ML D5W 25,000 UNIT/500 ML BAG IVC SCH (11:30)
[2018-07-26] MEDS ORDERED: *HR* LORazepam 2 MG/ML VIAL IVP PRN (14:25)
[2018-07-26] MEDS ORDERED: predniSONE 20 MG TABLET PO ONE (14:57)
--- NOTE | 2018-07-26 17:13 | Discharge Summary ---
<Aylin Laird N - Last Filed: 07/27/18 07:43> - NOTES TO OUTPATIENT PROVIDER Notes to Outpatient Provider: Patient was admitted for evaluation and treatment of suspected HCAP. He had a complex and complicated admission. Please see hospital course for significant events and findings. Orders not resulted at time of discharge: Pending orders 07/22/18 16:37 Culture,Blood [BC] Stat 07/24/18 21:00 Culture,Body Fluid [RM] Routine 07/25/18 04:00 Ionized Calcium,venous blood AM 0400 07/25/18 15:00 Renal Function Panel Routine 07/26/18 19:00 Activated Partial Thrombo Time [COAG] Routine Heparin anti-factor XA UFH [COAG] Routine Prothrombin Time INR [COAG] Routine 07/27/18 04:00 BMP [Basic Metabolic Panel] AM 0400 Complete Blood Count [HEME] AM 0400 Ionized Calcium,venous blood AM 0400 Magnesium AM 0400 Phosphorous AM 0400 Date of Encounter: 07/27/18 Time of Encounter: 17:05 - Discharge Diagnosis (1) Acute renal failure Priority: Secondary Status: Suspected Qualifiers: Acute renal failure type: with acute tubular necrosis Qualified Code(s): N17.0 - Acute kidney failure with tubular necrosis (2) Pneumonia Priority: Primary Status: Suspected Qualifiers: Pneumonia type: due to other aerobic Gram-negative bacteria Laterality: left Lung location: lower lobe of lung Qualified Code(s): J15.6 - Pneumonia due to other Gram-negative bacteria (3) Secondary adrenal insufficiency Priority: Secondary Status: Chronic (4) Melanoma Priority: Secondary Status: Chronic Qualifiers: Melanoma location: unspecified site Qualified Code(s): C43.9 - Malignant melanoma of skin, unspecified (5) Diabetes mellitus type 2 with complications, uncontrolled Priority: Secondary Status: Chronic (6) Atrial fibrillation Priority: Secondary Status: Chronic Qualifiers: Atrial fibrillation type: chronic Qualified Code(s): I48.2 - Chronic atrial fibrillation Hospital course: Mr. Catherine is a 57-year old male who presented to the ED on 07/19 complaining of persistent nausea, vomiting, and fevers x 3 days. Family also reported progressive weakness, and his noted him "staring into space", which prompted her to call EMS. Per H&P, patient was experiencing fevers of up to 102F at home. His past medical history is signficant for malignant melanoma with metastasis to lung and bilateral adrenal glands, left-sided pleurex drain due to malignant effusion, atrial fibrillation, diabetes mellitus, and DVT/PE. Initial laboratory workup revealed the following abnormalities: WBC 7.1, Hgb/ Hct 12.2/36.5, platelets 124, sodium 128, chloride 93, BUN 27, creatinine 1.39, calculated osmolality 278, calcium 7.9, total bilirubin 1.2, direct bilirubin 0.5, AST 172, ALT 136, alkaline phosphatase 505, serum total protein 6.1, and albumin 2.9. Further workup revealed the following significant findings: * Urinalysis - 100 protein, 100 glucose, trace ketones, small blood (3-5 microscopic WBCs), small bilirubin, and few granular casts. * Chest Xray - Left pleural catheter in place and left mid and lower lung airspace opacification, atelectasis, and/or pneumonia. * Chest CTA - Left hilar/infrahilar mass measuring 3.6 x 3.9cm and encasement of pulmonary vasculature. Left-sided pleural effusion and adjacent atelectasis/ scarring was noted, as was mediastinal lymphadenopathy. * CT abdomen/pelvis - Interval decrease in size of bilateral adrenal gland masses. * Gallbladder US - Sludge without corresponding inflammatory changes or bile duct dilation. Right retroperitoneal mass was also noted along the superior medial margin of the kidney, which was correlated to known adrenal masses. At the time of admission, patient met criteria for sepsis, and was started on broad spectrum antibiotic therapy with levofloxacin, zosyn, and vancomycin for suspected HCAP. Patient initially demonstrated some improvement in symptoms, and was able to ambulate in the [place] with his walker and the assistance of his . He was administered IV fluid hydration, with improvement in creatinine. On 07/23, patient complained of urinary frequency, stating that he was having to get up approximately every 30 minutes to empty his bladder. He denied any hematuria or dysuria. Patient reported dizziness that occurred when turning his head from left to right. Due to his history of metastatic disease, brain imaging was ordered. MRI without contrast demonstrated mild chronic white matter microvascular ischemic changes and no evidence of intracranial metastatic disease, though it was noted that the study was limited due to lack of contrast. Throughout admission, patient had numerous electrolyte abnormalities, with hypocalcemia, hyponatremia, hypokalemia, and hypophosphatemia. He was found to have a critical phosphorus level of 1.0 on 07/22. Appropriate electrolyte replacement therapy was provided. Patient also had incidents of hyper- and hypoglycemia throughout this admission, requiring continuous adjustments to insulin regimen. Adjustments were made to his gluco- and mineralocorticoid regimen throughout admission in response to poor glycemic control and elevated BP readings. On 07/25, it was noted that the patient experienced significant abdominal pain overnight. HIDA findings were as follows: * Prompt, homogenous uptake by the liver noted with normal appearance of radiotracer 3excretion into the biliary system. Clearance of bloodpool activity appeared appropriate. * Small bowel excretion noted at 20 minutes with delayed tracer commission within the gallbladder at 60 minutes. After morphine injection, uptake in the gallbladder was noted within 5 minutes. Laboratory studies demonstrated a significant increase in creatinine, from 2.10 on 07/24 to 3.11 on 07/25. Patient was also noted to be oliguric. Nephrology was consulted and recommended urine studies and renal ultrasound. Nursing staff placed a ontiveros catheter, and reported ~1900mL urine output almost immediately. Patient had further worsening of renal function on 07/26, with serum creatinine of 3.39 and GFR of 19. Per nephrology assessment, patient felt to likely need temporary hemodialysis tomorrow if renal function further worsened. Patient's lovenox was discontinued to to worsening renal function, and he was started on heparin drip. Patient requested transfer to [facility] in order to be close to his oncology team. Bed request placed and patient discharged to their care pending bed assignment and transfer arrangements. Discharge discussed with: patient, family, nurse - Time Spent with Patient Total time spent providing and/or coordinating discharge services: - Discharge Medications Home Medications: Metoprolol [Lopressor] 12.5 mg PO BID 06/01/18 [History] Multivit-Min/FA/Lycopen/Lutein [A Th[employer] Multivit Tab] 1 tab PO DAILY [History] Aspirin Enteric Coated [Aspirin EC] 81 mg PO DAILY 07/19/18 [History] Hydrocortisone [Cortef] 10 mg PO QPM 07/19/18 [History] Hydrocortisone [Cortef] 30 mg PO QAM 07/19/18 [History] Insulin Glargine,Hum.rec.anlog [Lantus Solostar] 10 unit SQ DAILY 07/19/18 [ History] Pantoprazole Sodium [Protonix] 20 mg PO DAILY 07/19/18 [History] Acetaminophen [Tylenol] 650 mg PO Q6HR PRN tablet 07/26/18 [Rx] Amiodarone [Cordarone] 200 mg PO DAILY tablet 07/26/18 [Rx] Baclofen [Lioresal] 10 mg PO TID tablet 07/26/18 [Rx] Heparin 3,000 unit IVP Q6H PRN vial 07/26/18 [Rx] Heparin 6,000 unit IVP Q6HR PRN vial 07/26/18 [Rx] Hydrocortisone Sodium Succ [Solu-Cortef] 50 mg IVP Q8H vial 07/26/18 [Rx] Naloxone [Narcan] 0.4 mg IVP Q2MIN PRN inj 07/26/18 [Rx] Ondansetron [Zofran] 4 mg IVP Q6HR PRN vial 07/26/18 [Rx] Promethazine [Phenergan] 12.5 mg IVP Q6HR PRN vial 07/26/18 [Rx] Tamsulosin [Flomax] 0.4 mg PO DAILY capsule 07/26/18 [Rx] hydrALAZINE [HydrALAZINE] 10 mg IVP Q6HR PRN vial 07/26/18 [Rx] levoFLOXacin [Levaquin] 750 mg PO Q48H tablet 07/26/18 [Rx] Allergies/Adverse Reactions: 3 Allergy/AdvReac Type Severity Reaction Status Date / Time No Known Allergies Allergy Verified 06/13/15 14:30 Date of admission: 07/20/18 08:01 Primary care physician: [facility] Consults: 07/25/18 10:40 Consult to Nephrology [CONS] Routine Consulting Provider: Kidney Pari/MANDY/PRAVEEN/ELISE Reason for Consult: Acute renal failure Call Completed: Yes 07/26/18 14:55 Consult to Face Painter [CONS] Routine Reason for SW Consult: Please help with [facility]. Discharging clinician: Aylin Laird Anticipated date of discharge: 07/27/18 - Constitutional Vitals: Temp Pulse Resp BP Pulse Ox 97.5 F L 73 17 169/88 95 07/26/18 15:35 07/26/18 15:35 07/26/18 15:35 07/26/18 15:35 07/26/18 15:35 General appearance: Present: obese Exam: * General: Ill-appearing adult male resting in bed. He does not appear to be in acute distress. * HEENT: Atraumatic and normocephalic. * Cardiovascular: Regular rate and rhythm. S1 and S2 present. No murmurs, rubs, or gallops. * Respiratory: CTA bilaterally. Chest rises and falls symmetrically. * Gastrointestinal: Soft and nontender. * Extremities: No clubbing, cyanosis, or edema. - Patient Status Disposition: Transfer [facility] Condition: Fair - Discharge Instructions Follow Up With: [facility] [Primary Care Provider] - Forms: ED Satisfaction Letter <Paulo Chin - Last Filed: 07/27/18 19:36> Orders not resulted at time of discharge: Pending orders 07/22/18 16:37 Culture,Blood [BC] Stat 07/24/18 21:00 Culture,Body Fluid [RM] Routine 07/25/18 04:00 Ionized Calcium,venous blood AM 0400 07/25/18 15:00 Renal Function Panel Routine 07/26/18 19:00 Activated Partial Thrombo Time [COAG] Routine Heparin anti-factor XA UFH [COAG] Routine Prothrombin Time INR [COAG] Routine 07/27/18 04:00 BMP [Basic Metabolic Panel] AM 0400 Complete Blood Count [HEME] AM 0400 Ionized Calcium,venous blood AM 0400 Magnesium AM 0400 Phosphorous AM 0400 Date of Encounter: 07/27/18 - Discharge Diagnosis (1) Melanoma Status: Chronic Qualifiers: Melanoma location: unspecified site Qualified Code(s): C43.9 - Malignant melanoma of skin, unspecified (2) Diabetes mellitus type 2 with complications, uncontrolled Status: Chronic (3) Pneumonia Status: Suspected Qualifiers: Pneumonia type: due to other aerobic Gram-negative bacteria Laterality: left Lung location: lower lobe of lung Qualified Code(s): J15.6 - Pneumonia due to other Gram-negative bacteria (4) Atrial fibrillation Status: Chronic Qualifiers: Atrial fibrillation type: chronic Qualified Code(s): I48.2 - Chronic atrial fibrillation (5) Acute renal failure Status: Suspected Qualifiers: Acute renal failure type: with acute tubular necrosis Qualified Code(s): N17.0 - Acute kidney failure with tubular necrosis (6) Secondary adrenal insufficiency Status: Chronic Hospital course: Mr. Catherine is a 57 year old male - Time Spent with Patient Total time spent providing and/or coordinating discharge services: 39min Date of admission: 07/20/18 08:01 Primary care physician: PCP [place] Consults: 07/25/18 10:40 Consult to Nephrology [CONS] Routine Consulting Provider: Kidney Pari/MANDY/PRAVEEN/ELISE Reason for Consult: Acute renal failure Call Completed: Yes 07/26/18 14:55 Consult to Face Painter [CONS] Routine Reason for SW Consult: Please help with [facility]. - Constitutional Vitals: Temp Pulse Resp BP Pulse Ox 97.5 F L 73 17 169/88 95 07/26/18 15:35 07/26/18 15:35 07/26/18 15:35 07/26/18 15:35 07/26/18 15:35 - Attending Attestation I examined this patient and my medical decision-making was reviewed with the Resident Physician on 07/26/18. I agree with the documented findings, disposition and treatment plan as described except to the extent set forth below. Mr Catherine has been admitted for presumed pneumonia. He had complicated course that is detailed above. He is going to be transferred to [place] in [facility]. Exam Alert Mucus membranes dry Heart reg No wheeze abd soft Plan D[facility]. Addendum entered and electronically signed by Aylin Laird 07/27/18 18:18 : On day of discharge, patient had profound hyperglycemia, with serum blood glucose >700. He was administered 10units regular insulin via IVP and started on continuous insulin drip at 5 units/hr. Preliminary pleural fluid culture results demonstrated many WBCs (>25/lpf). Renal ultrasound performed on 07/27 demonstrated the following findings: * Echogenic kidneys which can be seen in medical renal disease. No hydronephrosis. * Normal bladder with Ontiveros catheter in place. * Bilateral adrenal masses are seen to better advantage on prior CT. * Gallbladder sludge/cholelithiasis. * Trace ascites and small left effusion. Patient was accepted and received a bed assignment at [facility] per his request to be close to his oncology team. He was transferred to their ICU on for ongoing evaluation and treatment.
[2018-07-27] MEDS ORDERED: predniSONE 20 MG TABLET PO ONE (00:15)
[2018-07-27] MEDS: Hydrocortisone Sodium Succ 100 MG/2 ML VIAL IVP SCH ×2 (02:50→10:24)
[2018-07-27 05:01] LABS: VBG Ionized Calcium 1.07 mmol/L (1.15-1.35)
[2018-07-27 05:03] LABS: Basophils % 0.1 %
[2018-07-27 05:05] LABS: Hematocrit 32.9 % (37.5-50.1); Immature Platelets 1.8 % (1.1-6.1); Lymphocytes # 1.1 K/mcL (0.6-4.6); Lymphocytes % 12.2 %; Mean Corpuscular HGB Conc 33.4 g/dL (31.6-35.5); Mean Corpuscular Hemoglobin 29.1 pg (28.0-33.3); Monocytes # 0.4 K/mcL (0.0-1.3); Monocytes % 4.3 %; Neutrophils # 7.5 K/mcL (1.6-8.9); Red Blood Count 3.78 M/mcL (4.19-5.50); Red Cell Distribution Width 15.6 % (11.5-14.5); Segmented Neutrophils % 81.4 %
[2018-07-27 05:08] LABS: Platelet Count 83 K/mcL (140-400)
[2018-07-27] MEDS: Ondansetron 4 MG/2 ML VIAL IVP PRN (05:11)
[2018-07-27 05:22] LABS: Calcium 7.9 mg/dL (8.6-10.3); Magnesium 2.1 mg/dL (1.6-2.6); Phosphorous 3.5 mg/dL (2.7-4.5); Potassium 4.4 mEq/L (3.5-5.1)
[2018-07-27] MEDS: Heparin 25,000 UNIT/500 ML D5W 25,000 UNIT/500 ML BAG IVC SCH ×2 (06:17→10:12)
--- NOTE | 2018-07-27 07:44 | Internal Med Progress Note ---
<Aylin Laird N - Last Filed: 07/27/18 09:24> Hospitalist Progress Note - Encounter Date of Encounter: 07/27/18 Time of Encounter: 07:44 - Subjective Interval History: Mr. Catherine is a 57-year old male who presented to the ED on 07/19 complaining of persistent nausea, vomiting, and fevers x 3 days. Family also reported progressive weakness, and his noted him "staring into space", which prompted her to call EMS. Per H&P, patient was experiencing fevers of up to 102F at home. His past medical history is signficant for malignant melanoma with metastasis to lung and bilateral adrenal glands, left-sided pleurex drain due to malignant effusion, atrial fibrillation, diabetes mellitus, and DVT/PE. Initial laboratory workup revealed the following abnormalities: WBC 7.1, Hgb/ Hct 12.2/36.5, platelets 124, sodium 128, chloride 93, BUN 27, creatinine 1.39, calculated osmolality 278, calcium 7.9, total bilirubin 1.2, direct bilirubin 0.5, AST 172, ALT 136, alkaline phosphatase 505, serum total protein 6.1, and albumin 2.9. Further workup revealed the following significant findings: * Urinalysis - 100 protein, 100 glucose, trace ketones, small blood (3-5 microscopic WBCs), small bilirubin, and few granular casts. * Chest Xray - Left pleural catheter in place and left mid and lower lung airspace opacification, atelectasis, and/or pneumonia. * Chest CTA - Left hilar/infrahilar mass measuring 3.6 x 3.9cm and encasement of pulmonary vasculature. Left-sided pleural effusion and adjacent atelectasis/ scarring was noted, as was mediastinal lymphadenopathy. * CT abdomen/pelvis - Interval decrease in size of bilateral adrenal gland masses. * Gallbladder US - Sludge without corresponding inflammatory changes or bile duct dilation. Right retroperitoneal mass was also noted along the superior medial margin of the kidney, which was correlated to known adrenal masses. At the time of admission, patient met criteria for sepsis, and was started on broad spectrum antibiotic therapy with levofloxacin, zosyn, and vancomycin for suspected HCAP. Patient initially demonstrated some improvement in symptoms, and was able to ambulate in the [place] with his walker and the assistance of his . Over the weekend, he developed worsening abdominal pain and acute kidney injury. Nursing staff reports having placed a ontiveros catheter yesterday with immediate return of ~1900mL urine. Nephrology was consulted. On examination today, Mr. Catherine is lying in bed with nursing staff present. They note that he is improved from yesterday, and he denies any acute concerns. He did request oatmeal this morning, which was noted due to his lack of appetite over the weekend. Patient and his request transfer to [facility] in order to be near his oncology team. 07/27 - Mr. Catherine appears somewhat improved today. He is awaiting transfer to [facility] if/when a bed becomes available. His is present at the bedside, and states that the patient has been very thirsty and taking in a good amount of water since last night. Mr. Catherine complains of some vague abdominal pain. He denies any other complaints. Nursing staff reports that his heparin gtt has not been started. His last dose of Lovenox was yesterday morning. - Exam Vitals: Temp Pulse Resp BP Pulse Ox 97.7 F 79 17 188/91 96 07/27/18 07:00 07/27/18 07:00 07/27/18 07:00 07/27/18 07:00 07/27/18 07:00 Exam: * General: Ill-appearing adult male resting in bed. He does not appear to be in acute distress. He is responsive to questions. * HEENT: Atraumatic and normocephalic. * Cardiovascular: Regular rate and rhythm. S1 and S2 present. No murmurs, rubs, or gallops. * Respiratory: CTA bilaterally. Chest rises and falls symmetrically. * Gastrointestinal: Hypoactive bowel sounds x 4 quadrants. Abdomen is soft and without masses. Patient has mild RUQ tenderness. * Extremities: No clubbing, cyanosis, or edema. - Assessment and Plan (1) Acute renal failure Status: Suspected Assessment and Plan: Over the weekend, patient developed MARJAN with elevated creatinine and oliguria. Nursing staff reports that catheter was placed last night for strict I/Os, with immediate collection of ~1900mL urine. Creatinine further worsened today at 3.39. Currently holding nephrotoxic agents and renally dosing medications as appropriate. Appreciate nephrology input on this problem. 07/27 - Renal function slightly improved, with serum creatinine 3.21. Per nephrology, patient does not require acute hemodialysis at this time. Patient has continued to produce large volumes of urine, with production of 1050mL already for today. Will continue to avoid nephrotoxic agents. Patient's lovenox held secondary to MARJNA; heparin drip ordered yesterday will reportedly be started this morning. Appreciate nephrology assistance with management of this problem. (2) Pneumonia Status: Suspected Assessment and Plan: On initial evaluation in the ED, chest xray demonstrated left mid and lower lung airspace opacification, atelectasis, and/or pneumonia. Patient was also febrile and tachypneic, and was admitted for management of presumed HCAP. He was started on broad antibiotic therapy with levofloxacin, vancomycin, and zosyn on 07/20. To date, patient has received 3 days of antibiotic therapy. Patient's WBC on initial laboratory studies was 7.1, and has remained within normal limits, with most recent CBC showing WBC count of 6.8. Nursing staff reported that the patient was again running a fever late this morning, and he was given tylenol 650mg. Temperature continued to increase, with reading of 101.2F in the early afternoon. Patient denies any worsening shortness of breath or sputum production. Will continue current antibiotic therapy and tylenol PRN for fevers with careful watch for signs of worsening clinical status. 07/26 - Augmentin d/c secondary to abdominal pain. Levaquin dose renally adjusted in light of the patient's MARJAN. Cultures negative to date. Pleural fluid culture pending. Will continue current antibiotic management. 07/27 - Patient has received 5 days of levaquin (started on 07/22). His last dose was yesterday, with his next dose scheduled for tomorrow. As this medication is being renally dosed, he will have completed a total 7-day course of antibiotic therapy with levaquin as of tomorrow. He has been on antibiotic therapy since , and has received a total of 9 days of therapy. Will assess need for continued antibiotics tomorrow. (3) Secondary adrenal insufficiency Status: Chronic Assessment and Plan: Currently on hydrocortisone 50mg IVP Q8H. Fludrocortisone on hold secondary to elevated BP. (4) Melanoma Status: Chronic Assessment and Plan: Patient's oncologist is through [facility]. Patient and his are requesting transfer to [place] to be closer to oncology team. Transfer center has been notified - results of bed request pending. (5) Diabetes mellitus type 2 with complications, uncontrolled Status: Chronic Assessment and Plan: Patient has had recent hyperglycemia. Will continue high-dose SSI TIDAC and HS medium-dose SSI. Suspect hyperglycemia is worsened by large amounts of steroids this patient requires due to secondary adrenal insufficiency. Will continue to monitor and adjust as appropriate. (6) Atrial fibrillation Status: Chronic Assessment and Plan: Continue home medication of amiodarone 200mg daily. DVT Prophylaxis: Heparin gtt. Patient normally takes lovenox; however, hold placed on that medication secondary to MARJAN. His last dose of lovenox was yesterday am. Will monitor closely for signs/symptoms of DVT/PE. - Time Spent with Patient Total time spent is greater than 50% in coordination of care (as documented) at patient's floor/unit and/or counseling patient: Internal Medicine: Result - Labs CBC & Chem 7: 07/27/18 04:44 07/27/18 04:44 Labs: Short CBC 07/27/18 Range/Units 04:44 WBC 9.2 (4.3-11.1) K/mcL Hgb 11.0 L (12.9-16.9) g/dL Hct 32.9 L (37.5-50.1) % Plt Count 83 L (140-400) K/mcL Neutrophils # 7.5 (1.6-8.9) K/mcL BMP 07/27/18 04:44 Sodium 134 L Potassium 4.4 Chloride 98 Carbon Dioxide 29 BUN 67 H Creatinine 3.21 H Glucose 351 H Calcium 7.9 L - Impressions Impressions Bile Acid Absorption NM 07/25/18 06:45 IMPRESSION: No convincing scintigraphic evidence of acute cholecystitis. D/ : / 07/25/2018 08:50:13 Demario Leavitt MD / lizzie Interpreting Provider: Demario Leavitt MD Consult Discharge Plan - Plan [facility]errals: [facility] [Primary Care Provider[facility] - <Paulo Chin - Last Filed: 07/27/18 19:41> Hospitalist Progress Note - Encounter Date of Encounter: 07/27/18 - Exam Vitals: Temp Pulse Resp BP Pulse Ox 97.4 F L 81 17 172/96 95 07/27/18 15:06 07/27/18 15:06 07/27/18 15:06 07/27/18 15:06 07/27/18 15:06 - Assessment and Plan (1) Melanoma Status: Chronic (2) Diabetes mellitus type 2 with complications, uncontrolled Status: Chronic (3) Pneumonia Status: Suspected (4) Atrial fibrillation Status: Chronic (5) Acute renal failure Status: Suspected (6) Secondary adrenal insufficiency Status: Chronic - Time Spent with Patient Total time spent is greater than 50% in coordination of care (as documented) at patient's floor/unit and/or counseling patient: Internal Medicine: Result - Labs CBC & Chem 7: 07/27/18 04:44 07/27/18 11:08 Labs: Short CBC 07/27/18 Range/Units 04:44 WBC 9.2 (4.3-11.1) K/mcL Hgb 11.0 L (12.9-16.9) g/dL Hct 32.9 L (37.5-50.1) % Plt Count 83 L (140-400) K/mcL Neutrophils # 7.5 (1.6-8.9) K/mcL BMP 07/27/18 07/27/18 04:44 11:08 Sodium 134 L Potassium 4.4 Chloride 98 Carbon Dioxide 29 BUN 67 H Creatinine 3.21 H Glucose 351 H 710 H* Calcium 7.9 L - Impressions Impressions Retroperitoneum Ultrasound 07/27/18 10:30 IMPRESSION: 1. Echogenic kidneys which can be seen in medical renal disease. No hydronephrosis. 2. Normal bladder with Ontiveros catheter in place. 3. Bilateral adrenal masses are seen to better advantage on prior CT. 4. Gallbladder sludge/cholelithiasis. 5. Trace ascites and small left effusion. D/ / 07/27/2018 12:29:34 Chantal Spence MD / kavita Interpreting Provider: Chantal Spence MD - Attending Attestation I examined this patient and my medical decision-making was reviewed with the Resident Physician on 07/27/18. I agree with the documented findings, disposition and treatment plan as described except to the extent set forth below. Mr Catherine is currently admitted for presumed pneumonia as well as hyperglycemia and adrenal insufficiency. He remains moderate to high risk due to potential for worsening clinical status. Mr Catherine is drinking a lot of fluids. No fever or chest pain. Abd pain is somewhat better but having diarrhea. Exam Alert Comfortable at this time Mucus membranes dry Heart reg No wheeze abd soft I/P 1. Hyperglycemia - start insulin drip 2. MARJAN Further diagnoses and plan as above. <Aylin Laird - Last Filed: 07/27/18 09:24> (1) Acute renal failure Qualifiers: Acute renal failure type: with acute tubular necrosis Qualified Code(s): N17.0 - Acute kidney failure with tubular necrosis (2) Pneumonia Qualifiers: Pneumonia type: due to other aerobic Gram-negative bacteria Laterality: left Lung location: lower lobe of lung Qualified Code(s): J15.6 - Pneumonia due to other Gram-negative bacteria (4) Melanoma Qualifiers: Melanoma location: unspecified site Qualified Code(s): C43.9 - Malignant melanoma of skin, unspecified (6) Atrial fibrillation Qualifiers: Atrial fibrillation type: chronic Qualified Code(s): I48.2 - Chronic atrial fibrillation <Paulo Chin - Last Filed: 07/27/18 19:41> (1) Melanoma Qualifiers: Melanoma location: unspecified site Qualified Code(s): C43.9 - Malignant melanoma of skin, unspecified (3) Pneumonia Qualifiers: Pneumonia type: due to other aerobic Gram-negative bacteria Laterality: left Lung location: lower lobe of lung Qualified Code(s): J15.6 - Pneumonia due to other Gram-negative bacteria (4) Atrial fibrillation Qualifiers: Atrial fibrillation type: chronic Qualified Code(s): I48.2 - Chronic atrial fibrillation (5) Acute renal failure Qualifiers: Acute renal failure type: with acute tubular necrosis Qualified Code(s): N17.0 - Acute kidney failure with tubular necrosis
[2018-07-27] MEDS ORDERED: Calcium Gluconate 2,000 MG in 0.9 % Sodium Chloride 100 ML IVPB ONE (07:49)
--- NOTE | 2018-07-27 09:35 | Nephrology Progress Note ---
Date of Encounter: 07/27/18 Time of Encounter: 09:33 - Assessment and Plan (1) MARJAN (acute kidney injury) Current Visit: Yes Status: Acute Patient with multifactorial acute kidney injury related to contrast exposure, vancomycin use, nausea and vomiting and relatively low blood pressure. Scr improved at 3.21 and GFR 20. Uop was 4100 yesterday and 1050 already for today. Retroperitoneal US ordered today. (2) Diabetes mellitus type 2, uncomplicated Current Visit: No Status: Chronic Per primary team. Qualifiers: Qualified Code(s): E11.9 - Type 2 diabetes mellitus without complications (3) History of malignant melanoma Current Visit: Yes Status: Acute Per primary. Subjective Principal diagnosis: general weakness Interval history: Pt seen and examined, doing well. Denies CP/SOB. Denies nausea/vomiting diarrhea. Objective - Vital Signs Vital signs: Vital Signs Temp Pulse Resp BP Pulse Ox 07/27/18 07:00 97.7 F 79 17 188/91 96 07/27/18 05:33 97.8 F 74 17 179/89 95 07/27/18 00:45 97 F L 83 18 127/66 95 07/26/18 21:55 96.9 F L 58 17 152/77 96 07/26/18 15:35 97.5 F L 73 17 169/88 95 07/26/18 10:50 97.5 F L 81 16 150/81 96 Intake and Output 07/26/18 07/27/18 07/27/18 23:59 07:59 15:59 Intake Total 240 / 240 Output Total 1999 / 1999 1050 / 1050 Balance -1760 / -1760 -1050 / -1050 Intake: Oral 240 / 240 Output: Urine 1000 / 1000 Catheter 1000 / 1000 1050 / 1050 Other: Meal Lunch Percent of Meal Consumed 0% Stool Size Small Stool Consistency loose # Bowel Movement Diapers 1 Weight 90.9 kg Blood Glucose* 99 371 Patient Weight 07/27/18 23:59 Weight 90.9 kg - General Appearance General appearance: Present: well-developed, well-nourished EENT: Present: ATNC, hearing intact, vision intact Neck: Present: supple Respiratory: Present: clear Cardiology: Present: normal S1, normal S2 Gastrointestinal: Present: normoactive bowel sounds, no tenderness, no guarding Integumentary: Present: no rash, warm and dry Neurologic: Present: alert and oriented x3 Psychiatric: Present: mood/affect appropriate, cooperative - Lab 07/27/18 04:44 07/27/18 04:44 Most recent lab results Calcium 7.9 mg/dL (8.6-10.3) L 07/27/18 04:44 Phosphorus 3.5 mg/dL (2.7-4.5) 07/27/18 04:44 Magnesium 2.1 mg/dL (1.6-2.6) 07/27/18 04:44 Consult Discharge Plan - Plan [facility]errals: [facility] [Primary Care Provider] -
[2018-07-27] MEDS: Insulin LISPRO 300 UNITS/3 ML VIAL SQ SCH ×2 (10:07→14:39)
[2018-07-27] MEDS: Baclofen 10 MG TABLET PO SCH ×2 (10:08→14:15)
[2018-07-27] MEDS: Multivit/Ca/Min/Fe/FA 1 TAB TABLET PO SCH (10:08)
[2018-07-27] MEDS: Aspirin Enteric Coated 81 MG Tablet PO SCH (10:08)
[2018-07-27] MEDS: *HR* Amiodarone 200 MG TABLET PO SCH (10:08)
[2018-07-27] MEDS: levoFLOXacin 750 MG TABLET PO SCH (10:08)
[2018-07-27] MEDS: Insulin DETEMIR 100 UNIT/ML X5UNITS SQ SCH (10:09)
[2018-07-27] MEDS ORDERED: predniSONE 20 MG TABLET PO SCH (11:00)
[2018-07-27] MEDS ORDERED: Ringers Solution, Lactated 1,000 ML IVC SCH (11:30)
[2018-07-27] MEDS ORDERED: *HR* Dextrose 50 % in Water (Syg) 50 ML SYRINGE IVP PRN (13:37)
[2018-07-27] MEDS ORDERED: Insulin Human Regular 10 UNIT in 0.9 % Sodium Chloride 10 ML IV ONE (13:38)
[2018-07-27] MEDS ORDERED: Insulin Human Regular 100 UNIT in 0.9 % Sodium Chloride 100 ML IVC SCH (13:45)
[2018-07-27 14:14] LABS: C.difficile Toxin A/B by PCR Not detected (Not detect); Campylobacter by PCR Not detected (Not detect); Plesiomonas shigelloides PCR Not detected (Not detect); Salmonella PCR Not detected (Not detect)
[2018-07-27 14:15] LABS: Adenovirus F 40/41 PCR Not detected (Not detect); Astrovirus PCR Not detected (Not detect); Cryptosporidium by PCR Not detected (Not detect); Cyclospora cayetanensis PCR Not detected (Not detect); E. coli O157 by PCR Not detected (Not detect); Entamoeba histolytica PCR Not detected (Not detect); Enteroaggregative E.coli(EAEC) Not detected (Not detect); Enteropathogenic E.coli(EPEC) Not detected (Not detect); Enterotoxigenic E.coli (ETEC) Not detected (Not detect); Giardia lamblia PCR Not detected (Not detect); Norovirus GI/GII PCR Not detected (Not detect); Rotavirus A PCR Not detected (Not detect); Sapovirus PCR Not detected (Not detect); Shig/EnteroinvasiveE coli EIEC Not detected (Not detect); Shigalike tox-prod E coli STEC Not detected (Not detect); Vibrio PCR Not detected (Not detect); Vibrio cholerae PCR Not detected (Not detect); Yersinia enterocolitica PCR Not detected (Not detect)
[2018-07-27 15:10] VITALS: BP 172/96
== END 2018-07-27 17:47 | DRG 871 ==
LOC: 2SOUTHHOLD 18:45 → EMEROOARM 18:45 → 2SOUTHHOLD 07-20 05:47 → SUATTDRO 07-20 08:01 → 2ANU 07-21 05:55
PROVIDERS: ADMIT Pediatrics; ATTEND Internal Medicine

== ENCOUNTER 2018-08-12 12:22 | Inpatient (IN) ==
[2018-08-12] MEDS ORDERED: Vancomycin (wt based) 1,000 MG VIAL IVPB STA (13:56)
[2018-08-12] MEDS ORDERED: 0.9 % Sodium Chloride 1,000 ML IVC ONE (13:56)
[2018-08-12] MEDS ORDERED: Piperacillin/Tazobactam 3.375 GM in 0.9 % Sodium Chloride Mini Bag 100 ML IVPB STA (13:56)
[2018-08-12] MEDS ORDERED: Levofloxacin 750 MG/150 ML 750 MG/150 ML BAG IVPB STA (13:56)
--- NOTE | 2018-08-12 13:57 | Emergency Department Note ---
Disposition Clinical Impression: Hyperkalemia, HCAP (healthcare-associated pneumonia), Anemia Sepsis Qualifiers: Sepsis type: sepsis due to unspecified organism Qualified Code(s): A41.9 - Sepsis, unspecified organism Chronic kidney disease Qualifiers: Chronic kidney disease stage: unspecified stage Qualified Code(s): N18.9 - Chronic kidney disease, unspecified GI bleed Qualifiers: GI bleed type/associated pathology: unspecified gastrointestinal hemorrhage type Qualified Code(s): K92.2 - Gastrointestinal hemorrhage, unspecified Disposition: Admitted As Inpatient Condition: Fair Time of Disposition: 15:42 General Adult HPI - General Chief complaint: ED Fever Stated complaint: fever Time Seen by Provider: 08/12/18 12:23 Source: family, EMS Limitations: no limitations - History of Present Illness Pain Scale: 0 - Related Data Home Medications Medication Instructions Recorded Confirmed Multivit-Min/FA/Lycopen/Lutein [A 1 tab PO DAILY 06/01/18 08/12/18 Thru Z Select Multivit Tab] Aspirin Enteric Coated [Aspirin EC] 81 mg PO DAILY 07/19/18 08/12/18 Carvedilol [Coreg] 6.25 mg PO BIDWM 08/12/18 08/12/18 Gabapentin [Neurontin] 100 mg PO BID 08/12/18 08/12/18 Insulin ASPART [Novolog] 8 unit SQ TIDWM 08/12/18 08/12/18 Insulin NPH [HumuLIN NPH] 8 unit SQ HS 08/12/18 08/12/18 Insulin NPH [HumuLIN NPH] 12 unit SQ QAM 08/12/18 08/12/18 Metoclopramide [Reglan] 10 mg PO TID 08/12/18 08/12/18 Sulfamethoxazole/Trimeth DS 1 tab PO MOWEFR 08/12/18 08/12/18 [Bactrim DS] hydrALAZINE [HydrALAZINE] 10 mg PO TID 08/12/18 08/12/18 metFORMIN [Glucophage] 500 mg PO 0800 08/12/18 08/12/18 predniSONE [PredniSONE] 70 mg PO DAILY 08/12/18 08/12/18 Previous Rx's Medication Instructions Recorded Acetaminophen [Tylenol] 650 mg PO Q6HR PRN tablet 07/26/18 Tamsulosin [Flomax] 0.4 mg PO DAILY capsule 07/26/18 Allergies Allergy/AdvReac Type Severity Reaction Status Date / Time No Known Allergies Allergy Verified 06/13/15 14:30 Past Medical History - Past Medical History Medical history: Reports: cancer, DVT, diabetes, pulmonary embolus, other Surgical history: Reports: cancer surgery, other (melanoma and lymph node resection, right cheek bone reconstruction, b/l hernia repair as a child) Psychiatric history: Reports: no psych history - Social History Smoking Status: Never smoker Smokeless Tobacco Status: No Alcohol use: Reports: none Drug use: Reports: none Physical Exam - General Limitations: no limitations General appearance: alert, in no apparent distress Course Vital Signs Temperature 103 F H 08/12/18 12:26 Pulse Rate 92 08/12/18 12:26 Respiratory Rate 20 08/12/18 12:26 Blood Pressure 123/63 08/12/18 12:26 O2 Sat by Pulse Oximetry 98 08/12/18 12:26 Temperature 99.8 F H 08/12/18 15:42 Pulse Rate 75 08/12/18 15:42 Respiratory Rate 16 08/12/18 15:42 Blood Pressure 98/55 08/12/18 15:42 O2 Sat by Pulse Oximetry 99 08/12/18 15:42 Oxygen Delivery Oxygen Delivery Room Air Medical Decision Making - Lab Data Result diagrams: 08/12/18 15:34 08/12/18 12:38 Lab Results 08/12/18 08/12/18 08/12/18 Range/Units 12:38 12:38 12:38 WBC (4.3-11.1) K/mcL RBC (4.19-5.50) M/mcL Hgb (12.9-16.9) g/dL Hct (37.5-50.1) % MCV (83.0-100.0) fL MCH (28.0-33.3) pg MCHC (31.6-35.5) g/dL RDW (11.5-14.5) % Plt Count (140-400) K/mcL MPV (9.4-12.4) fL Immature Gran % (0-4) % Seg Neutrophils % % Lymphocytes % % Monocytes % % Eosinophils % % Basophils % % Neutrophils # (1.6-8.9) K/mcL Lymphocytes # (0.6-4.6) K/mcL Monocytes # (0.0-1.3) K/mcL Eosinophils # (0.0-0.6) K/mcL Basophils # (0.0-0.2) K/mcL Immature Plt Fraction (1.1-6.1) % PT 10.8 (9.4-12.1) Seconds INR 1.0 APTT 27.4 (26.0-36.0) Seconds Sodium 135 L (136-145) mEq/L Potassium 5.4 H (3.5-5.1) mEq/L Chloride 107 (98-107) mEq/L Carbon Dioxide 25 (23-29) mEq/L BUN 64 H (6-20) mg/dL Creatinine 2.56 H (0.70-1.30) mg/dL Est GFR ( Amer) 31 L (> 60) Est GFR (Non-Af Amer) 26 L (> 60) BUN/Creatinine Ratio 25 (6-26) Glucose 138 H (70-105) mg/dL Calculated Osmolality 301 H (280-300) Lactic Acid (0.5-2.2) mmol/L Calcium 7.7 L (8.6-10.3) mg/dL Magnesium 1.8 (1.6-2.6) mg/dL Total Bilirubin 0.7 (0.3-1.0) mg/dL Direct Bilirubin 0.2 (0.0-0.2) mg/dL Indirect Bilirubin 0.5 (0.0-1.2) mg/dL AST 28 (13-39) Units/L ALT 39 (7-52) Units/L Alkaline Phosphatase 255 H (34-104) Units/L Troponin I 0.05 H* (< 0.04) ng/mL Serum Total Protein 4.1 L (6.4-8.9) g/dL Albumin 2.2 L (3.5-5.7) g/dL Globulin 1.9 L (2.4-3.5) g/dL Albumin/Globulin Ratio 1.2 (1.1-2.2) Urine Color (Yellow) Urine Clarity (Clear) Urine pH (5.0-8.0) pH Units Ur Specific K[place]haw (1.010-1.025) Urine Protein (Neg-Trace) mg/dL Urine Glucose (UA) (Normal) mg/dL Urine Ketones (Negative) mg/dL Urine Blood (Negative) Urine Nitrite (Negative) Urine Bilirubin (Negative) Urine Urobilinogen (Normal) mg/dL Ur Leukocyte Esterase (Negative) Urine Microscopic RBC (0-3) per hpf Urine Microscopic WBC (0-3) per hpf Ur Squamous Epith Cells (None-Few) per lpf Urine Bacteria (None-Few) per hpf Hyaline Casts (None-Few) per lpf Ur Culture Indicated? (NO) Stool Occult Bld Scrn (Negative) Specimen Rejected Miscellaneous 08/12/18 08/12/18 08/12/18 Range/Units 14:28 15:34 15:34 WBC 4.9 (4.3-11.1) K/mcL RBC 2.31 L (4.19-5.50) M/mcL Hgb 6.9 L (12.9-16.9) g/dL Hct 22.0 L (37.5-50.1) % MCV 95.2 D (83.0-100.0) fL MCH 29.9 (28.0-33.3) pg MCHC 31.4 L (31.6-35.5) g/dL RDW 17.3 H (11.5-14.5) % Plt Count 92 L (140-400) K/mcL MPV 8.5 L (9.4-12.4) fL Immature Gran % 1.8 (0-4) % Seg Neutrophils % 85.2 % Lymphocytes % 10.8 % Monocytes % 2.0 % Eosinophils % 0.2 % Basophils % 0.0 % Neutrophils # 4.2 (1.6-8.9) K/mcL Lymphocytes # 0.5 L (0.6-4.6) K/mcL Monocytes # 0.1 (0.0-1.3) K/mcL Eosinophils # 0.0 (0.0-0.6) K/mcL Basophils # 0.0 (0.0-0.2) K/mcL Immature Plt Fraction 1.2 (1.1-6.1) % PT (9.4-12.1) Seconds INR APTT (26.0-36.0) Seconds Sodium (136-145) mEq/L Potassium (3.5-5.1) mEq/L Chloride (98-107) mEq/L Carbon Dioxide (23-29) mEq/L BUN (6-20) mg/dL Creatinine (0.70-1.30) mg/dL Est GFR ( Amer) (> 60) Est GFR (Non-Af Amer) (> 60) BUN/Creatinine Ratio (6-26) Glucose (70-105) mg/dL Calculated Osmolality (280-300) Lactic Acid 1.0 (0.5-2.2) mmol/L Calcium (8.6-10.3) mg/dL Magnesium (1.6-2.6) mg/dL Total Bilirubin (0.3-1.0) mg/dL Direct Bilirubin (0.0-0.2) mg/dL Indirect Bilirubin (0.0-1.2) mg/dL AST (13-39) Units/L ALT (7-52) Units/L Alkaline Phosphatase (34-104) Units/L Troponin I (< 0.04) ng/mL Serum Total Protein (6.4-8.9) g/dL Albumin (3.5-5.7) g/dL Globulin (2.4-3.5) g/dL Albumin/Globulin Ratio (1.1-2.2) Urine Color Yellow (Yellow) Urine Clarity Cloudy A (Clear) Urine pH 5.0 (5.0-8.0) pH Units Ur Specific [place]haw 1.015 (1.010-1.025) Urine Protein 100 H (Neg-Trace) mg/dL Urine Glucose (UA) 100 H (Normal) mg/dL Urine Ketones Negative (Negative) mg/dL Urine Blood Negative (Negative) Urine Nitrite Negative (Negative) Urine Bilirubin Negative (Negative) Urine Urobilinogen Normal (Normal) mg/dL Ur Leukocyte Esterase Trace H (Negative) Urine Microscopic RBC 0-3 (0-3) per hpf Urine Microscopic WBC 0-3 (0-3) per hpf Ur Squamous Epith Cells Many H (None-Few) per lpf Urine Bacteria None Seen (None-Few) per hpf Hyaline Casts Few (None-Few) per lpf Ur Culture Indicated? NO. A (NO) Stool Occult Bld Scrn (Negative) Specimen Rejected 08/12/18 Range/Units 16:06 WBC (4.3-11.1) K/mcL RBC (4.19-5.50) M/mcL Hgb (12.9-16.9) g/dL Hct (37.5-50.1) % MCV (83.0-100.0) fL MCH (28.0-33.3) pg MCHC (31.6-35.5) g/dL RDW (11.5-14.5) % Plt Count (140-400) K/mcL MPV (9.4-12.4) fL Immature Gran % (0-4) % Seg Neutrophils % % Lymphocytes % % Monocytes % % Eosinophils % % Basophils % % Neutrophils # (1.6-8.9) K/mcL Lymphocytes # (0.6-4.6) K/mcL Monocytes # (0.0-1.3) K/mcL Eosinophils # (0.0-0.6) K/mcL Basophils # (0.0-0.2) K/mcL Immature Plt Fraction (1.1-6.1) % PT (9.4-12.1) Seconds INR APTT (26.0-36.0) Seconds Sodium (136-145) mEq/L Potassium (3.5-5.1) mEq/L Chloride (98-107) mEq/L Carbon Dioxide (23-29) mEq/L BUN (6-20) mg/dL Creatinine (0.70-1.30) mg/dL Est GFR ( Amer) (> 60) Est GFR (Non-Af Amer) (> 60) BUN/Creatinine Ratio (6-26) Glucose (70-105) mg/dL Calculated Osmolality (280-300) Lactic Acid (0.5-2.2) mmol/L Calcium (8.6-10.3) mg/dL Magnesium (1.6-2.6) mg/dL Total Bilirubin (0.3-1.0) mg/dL Direct Bilirubin (0.0-0.2) mg/dL Indirect Bilirubin (0.0-1.2) mg/dL AST (13-39) Units/L ALT (7-52) Units/L Alkaline Phosphatase (34-104) Units/L Troponin I (< 0.04) ng/mL Serum Total Protein (6.4-8.9) g/dL Albumin (3.5-5.7) g/dL Globulin (2.4-3.5) g/dL Albumin/Globulin Ratio (1.1-2.2) Urine Color (Yellow) Urine Clarity (Clear) Urine pH (5.0-8.0) pH Units Ur Specific [place] (1.010-1.025) Urine Protein (Neg-Trace) mg/dL Urine Glucose (UA) (Normal) mg/dL Urine Ketones (Negative) mg/dL Urine Blood (Negative) Urine Nitrite (Negative) Urine Bilirubin (Negative) Urine Urobilinogen (Normal) mg/dL Ur Leukocyte Esterase (Negative) Urine Microscopic RBC (0-3) per hpf Urine Microscopic WBC (0-3) per hpf Ur Squamous Epith Cells (None-Few) per lpf Urine Bacteria (None-Few) per hpf Hyaline Casts (None-Few) per lpf Ur Culture Indicated? (NO) Stool Occult Bld Scrn Positive A (Negative) Specimen Rejected Attestation Statement - Attestation Attestation: I, Clifton Dawson DO, examined this patient [id number] and my medical decision-making was reviewed with Dr. Felicitas Yen, Resident Physician. I agree with the documented findings, disposition and treatment plan as described except to the extent set forth below. Please see my progress notes for details. 57-year-old male presents to the emergency room for evaluation of lung cancer and renal neoplasm. Patient was at his nursing facility today and they found that he felt warm. They are concerned about infection. He has a left-sided Port-A-Cath in place of the been draining fluid off as needed. He has not been on any recent antibiotics. The denies any falls or trauma. Patient presented here slightly somnolent if not slightly obtunded. His current CODE STATUS is a DNR CCA. He does not want aggressive cardiac resuscitation at this time but it appears intubation is still alive per the . Patient on physical exam is warm to the touch his skin is clammy. His oromucosa is dry. Trachea is midline oropharynx is patent she has no stridor or trismus. His lungs have coarse crackles bilaterally. His heart is regular. His abdomen is soft with no point tenderness guarding or rigidity. No visible signs or rash or lesions. Patient is pitting edema lower extremity with known DVT in the right lower extremity. Medication list was reviewed. We will confirm a blood thinner the patient is on at this time. He is concerning for septic-like presentation as well as progression of his cancer. CT imaging of the head chest and abdomen and pelvis will be added on with noncontrasted evaluation. Fluids nausea medication pain medication will be provided as needed. Initial chest x-ray along with CBC chemistry troponin level of function testing lipase lactic acid and blood cultures wall be added on at this time. Patient does not have a focal source of this point but is concerning so we will continue to monitor until source is determined in antibiotic regimen will be started in appropriate fashion. Disposition will be admission to this facility. He has had most of his cancer treatment completed outside facility. Family is comfortable being admitted here. Patient will be monitored closely. He does not show any acute signs of hypotension or shock-like presentation at this point. Disposition will be admission. See detailed documentation of the physical exam, medical intervention, medical decision-making and disposition in the resident physician's note. No critical care provider the patient's treatment course at this time. 1345 Patient is found to have bilateral interstitial pneumonia. Healthcare acquired pneumonia will be treated at this time. Patient was provided with 2 L of fluid as well as rectal Tylenol repeat temperature will be collected. Patient is maintaining acute signs of sepsis or severe sepsis secondary to the abnormal vital signs as well as the infection source. We will continue to monitor closely and showed the lactic acid the remainder the labs are resulted. Patient will require admission at this time. Severe sepsis was documented at 1345 hours. 1500 Patient has what appears to be pneumonia with no other acute findings on CT imaging. The patient will be admitted for continuation of care. Family is informed and comfortable with the plan. The hospitalist Dr. Dent reviewed the case had no other concerns or issues. He is aware of the family as well as the patient noted that his illness is getting worse and that he is potentially critically ill. No other recommendations or concerns at this time. Repeat evaluation with the at the bedside. He does have anemia that was noted during his evaluations at [facility]. She does not remember the numbers specifically. Hemoccult testing was collected here secondary to his hemoglobin being 6.9. It was positive at this time. She does not remember them ever telling her that he had a GI bleed. Patient is still at baseline mentation says that he goes in and out like this several times and has been doing it more frequently. Patient will wake up and asked questions when he is stimulated but otherwise rests and sits in the bed without any significant signs of discomfort. Patient will be admitted at this time. One unit of blood will be ordered at this time considering the patient is Hemoccult positive. Hospitalist is evaluating the patient the bedside and recommended an ABG which is been ordered at her request.
[2018-08-12] MEDS ORDERED: Acetaminophen 650 MG RECTAL SUPP RC ONE (13:58)
[2018-08-12 14:04] LABS: Prothrombin Time 10.8 Seconds (9.4-12.1)
[2018-08-12 14:07] LABS: Activated Partial Thrombo Time 27.4 Seconds (26.0-36.0)
--- NOTE | 2018-08-12 14:13 | Emergency Department Note ---
Disposition Clinical Impression: Hyperkalemia, HCAP (healthcare-associated pneumonia), Anemia Sepsis Qualifiers: Sepsis type: sepsis due to unspecified organism Qualified Code(s): A41.9 - Sepsis, unspecified organism Chronic kidney disease Qualifiers: Chronic kidney disease stage: unspecified stage Qualified Code(s): N18.9 - Chronic kidney disease, unspecified GI bleed Qualifiers: GI bleed type/associated pathology: unspecified gastrointestinal hemorrhage type Qualified Code(s): K92.2 - Gastrointestinal hemorrhage, unspecified Disposition: Admitted As Inpatient Condition: Fair General Adult HPI - General Chief complaint: ED Fever Stated complaint: fever Time Seen by Provider: 08/12/18 12:23 Source: family, EMS Mode of arrival: EMS Limitations: no limitations Nursing Notes Reviewed: Yes Vital Signs Reviewed: Yes - History of Present Illness HPI Narrative: 57-year-old male with complex past medical history including adrenal, lung cancer and DVT in the right lower extremity presenting to the emergency department with chief complaint of fever. Patient is unable to provide any of the history of present illness. All history of present illness obtained from EMS and family members at bedside. According to EMS patient was currently being treated with steroids and Bactrim as an outpatient for pneumonia but has been getting worse. Today he had a fever of 103 so EMS was called to bring him here for further evaluation. According to family members at bedside patient just recently got to [facility] a few days ago. He was at the [facility] getting treated for the DVT along with having a pleural catheter. According to family member at bedside patient has been treated for pneumonia twice before and she thinks this is what is going on. Pain Scale: 0 - Related Data Home Medications Medication Instructions Recorded Confirmed Multivit-Min/FA/Lycopen/Lutein [A 1 tab PO DAILY 06/01/18 08/12/18 Thru Z Select Multivit Tab] Aspirin Enteric Coated [Aspirin EC] 81 mg PO DAILY 07/19/18 08/12/18 Carvedilol [Coreg] 6.25 mg PO BIDWM 08/12/18 08/12/18 Gabapentin [Neurontin] 100 mg PO BID 08/12/18 08/12/18 Insulin ASPART [Novolog] 8 unit SQ TIDWM 08/12/18 08/12/18 Insulin NPH [HumuLIN NPH] 8 unit SQ HS 08/12/18 08/12/18 Insulin NPH [HumuLIN NPH] 12 unit SQ QAM 08/12/18 08/12/18 Metoclopramide [Reglan] 10 mg PO TID 08/12/18 08/12/18 Sulfamethoxazole/Trimeth DS 1 tab PO MOWEFR 08/12/18 08/12/18 [Bactrim DS] hydrALAZINE [HydrALAZINE] 10 mg PO TID 08/12/18 08/12/18 metFORMIN [Glucophage] 500 mg PO 0800 08/12/18 08/12/18 predniSONE [PredniSONE] 70 mg PO DAILY 08/12/18 08/12/18 Previous Rx's Medication Instructions Recorded Acetaminophen [Tylenol] 650 mg PO Q6HR PRN tablet 07/26/18 Tamsulosin [Flomax] 0.4 mg PO DAILY capsule 07/26/18 Allergies Allergy/AdvReac Type Severity Reaction Status Date / Time No Known Allergies Allergy Verified 06/13/15 14:30 Limitations: ROS unobtainable due to patients medical condition Constitutional: Reports: fever Past Medical History - Past Medical History Attestation: Yes The following information was validated with the patient. Source: old records reviewed Medical history: Reports: cancer, DVT, diabetes, pulmonary embolus, other Surgical history: Reports: cancer surgery, other (melanoma and lymph node resection, right cheek bone reconstruction, b/l hernia repair as a child) Psychiatric history: Reports: no psych history - Social History Smoking Status: Never smoker Smokeless Tobacco Status: No Alcohol use: Reports: none Drug use: Reports: none Physical Exam - General Limitations: no limitations General appearance: alert, in no apparent distress - Head Head exam: atraumatic, normocephalic, normal inspection - Eye Eye exam: Absent: scleral icterus, conjunctival injection - ENT ENT exam: mucous membranes dry - Neck Neck exam: Present: normal inspection - Chest Chest inspection: Present: normal inspection, symmetric chest wall rise. Absent : tenderness, rash - Respiratory Respiratory exam: Present: other (Coarse breath sounds throughout) - Cardiovascular Cardiovascular exam: Present: regular rate, normal rhythm, normal heart sounds - Abdominal Exam Abdominal exam: Present: soft, Non-Tender, other (ecchymosis throughout the abdomen.). Absent: distention, guarding, rebound - Extremities Exam Extremities exam: Present: other (2+ pitting edema in the bilateral lower extremities) - Skin Skin exam: Present: warm Course Course Narrative: 57-year-old male presenting for fever. Patient is a cancer patient that was treated at [facility]. Patient is not currently receiving chemotherapy. Last treatment was approximately one month ago. In the room the patient skin is warm to touch. Bilateral lower extremities have 2+ pitting edema. Patient has coarse breath sounds. Ecchymosis noted on the abdomen and the left upper extremity. Concern for sepsis at this time. Patient was recently hospitalized if he does have a pneumonia it would be considered healthcare acquired. We will obtain lactic, basic laboratory analysis, blood cultures, chest x-ray. Patient is hemodynamically stable at this time. Disposition most likely admission but pending results. - Reevaluation(s) Reevaluation #1: Patient's laboratory analysis shows anemia with a hemoglobin of 6.9. Mild hyperkalemia at 5.4 creatinine at 2.56 which is baseline for the patient. And elevated troponin at 0.05. Patient's CT scans have resulted in only acute abnormality is bilateral multifocal pneumonia. At this time we will plan to treat the patient has healthcare acquired pneumonia. Patient remains hemodynamically stable in the room. Stool occult card was completed and was positive. at bedside denies any hematochezia, hematemesis or melena. We will provide the patient with vancomycin, Zosyn and Levaquin for healthcare acquired pneumonia. We will plan to admit the patient for further evaluation and treatment. I spoke with the hospitalist personalized living manager nurse Dr. Dent who agrees to accept the patient at this time. Vital Signs Temperature 103 F H 08/12/18 12:26 Pulse Rate 92 08/12/18 12:26 Respiratory Rate 20 08/12/18 12:26 Blood Pressure 123/63 08/12/18 12:26 O2 Sat by Pulse Oximetry 98 08/12/18 12:26 Temperature 99.8 F H 08/12/18 15:42 Pulse Rate 75 08/12/18 15:42 Respiratory Rate 16 08/12/18 15:42 Blood Pressure 98/55 08/12/18 15:42 O2 Sat by Pulse Oximetry 99 08/12/18 15:42 Oxygen Delivery Oxygen Delivery Room Air Medical Decision Making - Lab Data Result diagrams: 08/12/18 15:34 08/12/18 12:38 Lab Results 08/12/18 08/12/18 08/12/18 Range/Units 12:38 12:38 12:38 WBC (4.3-11.1) K/mcL RBC (4.19-5.50) M/mcL Hgb (12.9-16.9) g/dL Hct (37.5-50.1) % MCV (83.0-100.0) fL MCH (28.0-33.3) pg MCHC (31.6-35.5) g/dL RDW (11.5-14.5) % Plt Count (140-400) K/mcL MPV (9.4-12.4) fL Immature Gran % (0-4) % Seg Neutrophils % % Lymphocytes % % Monocytes % % Eosinophils % % Basophils % % Neutrophils # (1.6-8.9) K/mcL Lymphocytes # (0.6-4.6) K/mcL Monocytes # (0.0-1.3) K/mcL Eosinophils # (0.0-0.6) K/mcL Basophils # (0.0-0.2) K/mcL Immature Plt Fraction (1.1-6.1) % PT 10.8 (9.4-12.1) Seconds INR 1.0 APTT 27.4 (26.0-36.0) Seconds Sodium 135 L (136-145) mEq/L Potassium 5.4 H (3.5-5.1) mEq/L Chloride 107 (98-107) mEq/L Carbon Dioxide 25 (23-29) mEq/L BUN 64 H (6-20) mg/dL Creatinine 2.56 H (0.70-1.30) mg/dL Est GFR ( Amer) 31 L (> 60) Est GFR (Non-Af Amer) 26 L (> 60) BUN/Creatinine Ratio 25 (6-26) Glucose 138 H (70-105) mg/dL Calculated Osmolality 301 H (280-300) Lactic Acid (0.5-2.2) mmol/L Calcium 7.7 L (8.6-10.3) mg/dL Magnesium 1.8 (1.6-2.6) mg/dL Total Bilirubin 0.7 (0.3-1.0) mg/dL Direct Bilirubin 0.2 (0.0-0.2) mg/dL Indirect Bilirubin 0.5 (0.0-1.2) mg/dL AST 28 (13-39) Units/L ALT 39 (7-52) Units/L Alkaline Phosphatase 255 H (34-104) Units/L Troponin I 0.05 H* (< 0.04) ng/mL Serum Total Protein 4.1 L (6.4-8.9) g/dL Albumin 2.2 L (3.5-5.7) g/dL Globulin 1.9 L (2.4-3.5) g/dL Albumin/Globulin Ratio 1.2 (1.1-2.2) Urine Color (Yellow) Urine Clarity (Clear) Urine pH (5.0-8.0) pH Units Ur Specific [place] (1.010-1.025) Urine Protein (Neg-Trace) mg/dL Urine Glucose (UA) (Normal) mg/dL Urine Ketones (Negative) mg/dL Urine Blood (Negative) Urine Nitrite (Negative) Urine Bilirubin (Negative) Urine Urobilinogen (Normal) mg/dL Ur Leukocyte Esterase (Negative) Urine Microscopic RBC (0-3) per hpf Urine Microscopic WBC (0-3) per hpf Ur Squamous Epith Cells (None-Few) per lpf Urine Bacteria (None-Few) per hpf Hyaline Casts (None-Few) per lpf Ur Culture Indicated? (NO) Stool Occult Bld Scrn (Negative) Specimen Rejected Miscellaneous 08/12/18 08/12/18 08/12/18 Range/Units 14:28 15:34 15:34 WBC 4.9 (4.3-11.1) K/mcL RBC 2.31 L (4.19-5.50) M/mcL Hgb 6.9 L (12.9-16.9) g/dL Hct 22.0 L (37.5-50.1) % MCV 95.2 D (83.0-100.0) fL MCH 29.9 (28.0-33.3) pg MCHC 31.4 L (31.6-35.5) g/dL RDW 17.3 H (11.5-14.5) % Plt Count 92 L (140-400) K/mcL MPV 8.5 L (9.4-12.4) fL Immature Gran % 1.8 (0-4) % Seg Neutrophils % 85.2 % Lymphocytes % 10.8 % Monocytes % 2.0 % Eosinophils % 0.2 % Basophils % 0.0 % Neutrophils # 4.2 (1.6-8.9) K/mcL Lymphocytes # 0.5 L (0.6-4.6) K/mcL Monocytes # 0.1 (0.0-1.3) K/mcL Eosinophils # 0.0 (0.0-0.6) K/mcL Basophils # 0.0 (0.0-0.2) K/mcL Immature Plt Fraction 1.2 (1.1-6.1) % PT (9.4-12.1) Seconds INR APTT (26.0-36.0) Seconds Sodium (136-145) mEq/L Potassium (3.5-5.1) mEq/L Chloride (98-107) mEq/L Carbon Dioxide (23-29) mEq/L BUN (6-20) mg/dL Creatinine (0.70-1.30) mg/dL Est GFR ( Amer) (> 60) Est GFR (Non-Af Amer) (> 60) BUN/Creatinine Ratio (6-26) Glucose (70-105) mg/dL Calculated Osmolality (280-300) Lactic Acid 1.0 (0.5-2.2) mmol/L Calcium (8.6-10.3) mg/dL Magnesium (1.6-2.6) mg/dL Total Bilirubin (0.3-1.0) mg/dL Direct Bilirubin (0.0-0.2) mg/dL Indirect Bilirubin (0.0-1.2) mg/dL AST (13-39) Units/L ALT (7-52) Units/L Alkaline Phosphatase (34-104) Units/L Troponin I (< 0.04) ng/mL Serum Total Protein (6.4-8.9) g/dL Albumin (3.5-5.7) g/dL Globulin (2.4-3.5) g/dL Albumin/Globulin Ratio (1.1-2.2) Urine Color Yellow (Yellow) Urine Clarity Cloudy A (Clear) Urine pH 5.0 (5.0-8.0) pH Units Ur Specific [place] 1.015 (1.010-1.025) Urine Protein 100 H (Neg-Trace) mg/dL Urine Glucose (UA) 100 H (Normal) mg/dL Urine Ketones Negative (Negative) mg/dL Urine Blood Negative (Negative) Urine Nitrite Negative (Negative) Urine Bilirubin Negative (Negative) Urine Urobilinogen Normal (Normal) mg/dL Ur Leukocyte Esterase Trace H (Negative) Urine Microscopic RBC 0-3 (0-3) per hpf Urine Microscopic WBC 0-3 (0-3) per hpf Ur Squamous Epith Cells Many H (None-Few) per lpf Urine Bacteria None Seen (None-Few) per hpf Hyaline Casts Few (None-Few) per lpf Ur Culture Indicated? NO. A (NO) Stool Occult Bld Scrn (Negative) Specimen Rejected 08/12/18 Range/Units 16:06 WBC (4.3-11.1) K/mcL RBC (4.19-5.50) M/mcL Hgb (12.9-16.9) g/dL Hct (37.5-50.1) % MCV (83.0-100.0) fL MCH (28.0-33.3) pg MCHC (31.6-35.5) g/dL RDW (11.5-14.5) % Plt Count (140-400) K/mcL MPV (9.4-12.4) fL Immature Gran % (0-4) % Seg Neutrophils % % Lymphocytes % % Monocytes % % Eosinophils % % Basophils % % Neutrophils # (1.6-8.9) K/mcL Lymphocytes # (0.6-4.6) K/mcL Monocytes # (0.0-1.3) K/mcL Eosinophils # (0.0-0.6) K/mcL Basophils # (0.0-0.2) K/mcL Immature Plt Fraction (1.1-6.1) % PT (9.4-12.1) Seconds INR APTT (26.0-36.0) Seconds Sodium (136-145) mEq/L Potassium (3.5-5.1) mEq/L Chloride (98-107) mEq/L Carbon Dioxide (23-29) mEq/L BUN (6-20) mg/dL Creatinine (0.70-1.30) mg/dL Est GFR ( Amer) (> 60) Est GFR (Non-Af Amer) (> 60) BUN/Creatinine Ratio (6-26) Glucose (70-105) mg/dL Calculated Osmolality (280-300) Lactic Acid (0.5-2.2) mmol/L Calcium (8.6-10.3) mg/dL Magnesium (1.6-2.6) mg/dL Total Bilirubin (0.3-1.0) mg/dL Direct Bilirubin (0.0-0.2) mg/dL Indirect Bilirubin (0.0-1.2) mg/dL AST (13-39) Units/L ALT (7-52) Units/L Alkaline Phosphatase (34-104) Units/L Troponin I (< 0.04) ng/mL Serum Total Protein (6.4-8.9) g/dL Albumin (3.5-5.7) g/dL Globulin (2.4-3.5) g/dL Albumin/Globulin Ratio (1.1-2.2) Urine Color (Yellow) Urine Clarity (Clear) Urine pH (5.0-8.0) pH Units Ur Specific [place] (1.010-1.025) Urine Protein (Neg-Trace) mg/dL Urine Glucose (UA) (Normal) mg/dL Urine Ketones (Negative) mg/dL Urine Blood (Negative) Urine Nitrite (Negative) Urine Bilirubin (Negative) Urine Urobilinogen (Normal) mg/dL Ur Leukocyte Esterase (Negative) Urine Microscopic RBC (0-3) per hpf Urine Microscopic WBC (0-3) per hpf Ur Squamous Epith Cells (None-Few) per lpf Urine Bacteria (None-Few) per hpf Hyaline Casts (None-Few) per lpf Ur Culture Indicated? (NO) Stool Occult Bld Scrn Positive A (Negative) Specimen Rejected - EKG Data EKG #1 EKG attestation: Yes I reviewed and interpreted this EKG. EKG results narrative: Sinus rhythm. 91 bpm. MN interval 132, QRS 84, QTC 390. No sign of acute ST segment elevation or ischemia. Compared to previous EKG completed on 2017 no significant changes noted Critical Care Time Critical Care Time: Yes Total Critical Care Time: 45 Attestation: Critical care performed: Time is exclusive of separately billable procedures. Time includes: direct patient care, patient reassessment, coordination of patient care, interpretation of data (laboratory data, radiology data, and respiratory data), review of patient's medical records, medical consultation and documentation of patient care. Procedures included in critical care time: Procedures excluded from critical care time: Attestation Statement - Attestation Attestation: I, Clifton Dawson DO, examined this patient [id number] and my medical decision-making was reviewed with Dr. Felicitas Yen Resident Physician. I agree with the documented findings, disposition and treatment plan as described except to the extent set forth below. Please see my progress notes for details.
[2018-08-12 14:24] LABS: Troponin I 0.05 ng/mL (< 0.04)
[2018-08-12 14:27] LABS: Albumin 2.2 g/dL (3.5-5.7); Albumin/Globulin Ratio 1.2 (1.1-2.2); Bilirubin,Direct 0.2 mg/dL (0.0-0.2); Bilirubin,Indirect 0.5 mg/dL (0.0-1.2); Bilirubin,Total 0.7 mg/dL (0.3-1.0); Calcium 7.7 mg/dL (8.6-10.3); Globulin 1.9 g/dL (2.4-3.5); Magnesium 1.8 mg/dL (1.6-2.6); Potassium 5.4 mEq/L (3.5-5.1); Total Protein 4.1 g/dL (6.4-8.9)
[2018-08-12 14:40] LABS: Bilirubin,Urine Negative (Negative); Blood,Urine Negative (Negative); Clarity,Urine Cloudy (Clear); Color,Urine Yellow (Yellow); Glucose,Urine (UA) 100 mg/dL (Normal); Ketones,Urine Negative (Negative); Leukocyte Esterase,Urine Trace (Negative); Nitrite,Urine Negative (Negative); Protein,Urine 100 mg/dL (Neg-Trace); Specific Gravity,Urine 1.015 (1.010-1.025); Urobilinogen,Urine Normal (Normal)
[2018-08-12 14:44] LABS: Bacteria,Urine None Seen per hpf (None-Few); Hyaline Casts,Urine Few per lpf (None-Few); RBC,Urine 0-3 per hpf (0-3); Squamous Epithelial Cell,Urine Many per lpf (None-Few); WBC,Urine 0-3 per hpf (0-3)
[2018-08-12 15:47] LABS: Eosinophils % 0.2 %; Red Cell Distribution Width 17.3 % (11.5-14.5)
[2018-08-12] MEDS ORDERED: Naloxone 0.4 MG/ML INJ IVP PRN (15:47)
[2018-08-12 15:49] LABS: Hemoglobin 6.9 g/dL (12.9-16.9); Immature Granulocytes % 1.8 % (0-4); Immature Platelets 1.2 % (1.1-6.1); Lymphocytes # 0.5 K/mcL (0.6-4.6); Lymphocytes % 10.8 %; Mean Corpuscular HGB Conc 31.4 g/dL (31.6-35.5); Mean Corpuscular Hemoglobin 29.9 pg (28.0-33.3); Mean Platelet Volume 8.5 fL (9.4-12.4); Monocytes # 0.1 K/mcL (0.0-1.3); Neutrophils # 4.2 K/mcL (1.6-8.9); Red Blood Count 2.31 M/mcL (4.19-5.50); Segmented Neutrophils % 85.2 %
[2018-08-12] MEDS ORDERED: Acetaminophen 325 MG TABLET PO PRN (15:49)
[2018-08-12 15:50] LABS: Platelet Count 92 K/mcL (140-400)
[2018-08-12 15:51] LABS: Mean Corpuscular Volume 95.2 fL (83.0-100.0)
[2018-08-12] MEDS ORDERED: Vancomycin 1 EACH in 0.9 % Sodium Chloride 250 ML IVPB SCH (16:00)
[2018-08-12] MEDS ORDERED: Pantoprazole 40 MG VIAL IVP ONE (16:43)
--- NOTE | 2018-08-12 16:58 | Internal Med History&Physical ---
Date of Encounter: 08/12/18 Time of Encounter: 17:00 Internal Medicine - H&P: HPI Chief complaint: Fever, lethargy and shortness of breath History of present illness: Mr. 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 Patient was recently at [facility] where he was treated for HCAP and transferred to [facility] where he completed his treatment and was transferred to a assisted. She notes that at [facility], he was diagnosed with a DVT and started on therapeutic anticaogulation and transferred to a assisted about 3 days ago. She went to visit him at the assisted this am , and says he was barely arousable and less responsive that usual. She also noted some dark stools the day before. residential staff checked his vitals and found him to have a fever of 102, as well as was hypoxic to the hgh 70s on room air and that's why they brought him here. In the ER, patient was lethargic but oriented to person. Admits to fevers and cough and feeling sleepy and tired. Denies any other acute symptoms. A chest xray was done showing multifocal pneumonia and he was started on broad spectrum antibiotics. He was also noted to have a low hemoglobin of 6.9 and he is being admitted for further management Past Med Surg Social Fam HX - Past Medical History Medical history: cancer, DVT, diabetes, pulmonary embolus, other Additional medical history: adrenal gland and left lung cancer, skin cancer Psychiatric history: no psych history - Past Surgical History Surgical History: cancer surgery, other (melanoma and lymph node resection, right cheek bone reconstruction, b/l hernia repair as a child) Additional surgical history: skin cancer removed, lymph nodes removed from left side, left pleurax catheter - Social History Smoking Status: Never smoker Smokeless Tobacco Status: No Alcohol use: none Drug use: none - Family History Maternal Grandmother Hx Family Cancer: Yes Internal Medicine - H&P: Meds Multivit-Min/FA/Lycopen/Lutein [A Thru Z Select Multivit Tab] 1 tab PO DAILY [History] Aspirin Enteric Coated [Aspirin EC] 81 mg PO DAILY 07/19/18 [History] Acetaminophen [Tylenol] 650 mg PO Q6HR PRN tablet 07/26/18 [Rx] Tamsulosin [Flomax] 0.4 mg PO DAILY capsule 07/26/18 [Rx] Carvedilol [Coreg] 6.25 mg PO BIDWM 08/12/18 [History] Gabapentin [Neurontin] 100 mg PO BID 08/12/18 [History] Insulin ASPART [Novolog] 8 unit SQ TIDWM 08/12/18 [History] Insulin NPH [HumuLIN NPH] 8 unit SQ HS 08/12/18 [History] Insulin NPH [HumuLIN NPH] 12 unit SQ QAM 08/12/18 [History] Metoclopramide [Reglan] 10 mg PO TID 08/12/18 [History] Sulfamethoxazole/Trimeth DS [Bactrim DS] 1 tab PO MOWEFR 08/12/18 [History] hydrALAZINE [HydrALAZINE] 10 mg PO TID 08/12/18 [History] metFORMIN [Glucophage] 500 mg PO 0800 08/12/18 [History] predniSONE [PredniSONE] 70 mg PO DAILY 08/12/18 [History] 3 Allergy/AdvReac Type Severity Reaction Status Date / Time No Known Allergies Allergy Verified 06/13/15 14:30 All Systems PM: A 10-system review of systems was performed and is negative for pertinent findings except as documented above in the HPI. - Constitutional Constitutional: as per HPI, chills, fatigue, fever(s), lethargy, malaise, no night sweats - EENT Eyes: no change in vision, no discharge, no pain, no photophobia Ears: no ear discharge, no ear pain, no tinnitus Nose, mouth and throat: no dysphagia, no nasal discharge, no neck pain, no sore throat - Cardiovascular Cardiovascular ROS IM: dyspnea, no chest pain, no diaphoresis, no lightheadedness, no palpitations, no syncope - Respiratory Respiratory: cough, no dyspnea, no wheezing, no excessive phlegm production - Gastrointestinal Gastrointestinal: melena, no abdominal pain, no diarrhea, no hematemesis, no hematochezia, no nausea, no vomiting - Musculoskeletal Musculoskeletal ROS IM: no numbness, no tingling - Integumentary Integumentary IM: no rash, no unusual bruising - Neurological Neurological ROS: no confusion, no convulsions, no focal weakness, no numbness, no tingling, no tremor(s) - Hematologic/Lymphatic Hematologic/Lymphatic: no easy bruising - Constitutional Vitals: Temp Pulse Resp BP Pulse Ox 99.8 F H 75 16 115/63 99 08/12/18 15:42 08/12/18 15:42 08/12/18 16:47 08/12/18 16:47 08/12/18 15:42 Exam: Lethargic. Arousable. Oriented to person - Head Head exam: Present: atraumatic, normocephalic - Eye Eye exam: Present: PERRL, conjuntiva pink, sclera anicteric Pupils: Present: PERRL - Neck Neck exam general surgery: Present: supple, trachea midline. Absent: lymphadenopathy - Respiratory Respiratory exam: Present: decreased breath sounds. Absent: accessory muscle use, rales, rhonchi, wheezes Additional comments: pleurx drain on left chest - Cardiovascular Cardiovascular exam: Present: RRR, +S1, +S2. Absent: diastolic murmur, gallop, rubs, systolic murmur - GI/Abdominal GI/Abdominal exam: Present: normal bowel sounds, soft, no peritoneal signs. Absent: distended, tenderness - Extremities Exam Extremities exam: Present: pedal edema, warm, radial pulses palpable and symmetrical. Absent: calf tenderness, cyanotic Additional comments: 2+pitting edema bilaterally - Neurological Exam Neurological exam: Present: CN II-XII intact, oriented X3, no focal deficits. Absent: pronater drift, facial droop, speech deficit - Skin Skin exam: Present: dry, intact Internal Med - H&P Results - Labs CBC & Chem 7: 08/12/18 15:34 08/12/18 12:38 - Assessment and plan (1) Sepsis Current Visit: Yes Status: Acute Assessment and plan: Likely secondary to bacterial HCAp. Pt came in with fever and hypoxia. CXR and CT chest show findigs suggestive if multifocal pneumonia. Will start on vanc, zosyn and levaquin Follow up blood cultures, lactic acid, obtain urine legionella and streptococcal antigen Qualifiers: Sepsis type: sepsis due to unspecified organism Qualified Code(s): A41.9 - Sepsis, unspecified organism (2) Acute GI bleeding Current Visit: Yes Status: Acute Assessment and plan: Pt noted to have a DVT per and started on anticoagulation (records from [facility] pending) Hemoglobin was 6.9 with positive hemooccult. Bolused 80mg IV protonix and will start on protonix 40mg IV BID Transfuse 2 units of PRBC. GI consulted and appreciate recs. Monitor hemoglobin q 8hrs (3) HCAP (healthcare-associated pneumonia) Current Visit: Yes Status: Acute Assessment and plan: Likely secondary to bacterial HCAp. Pt came in with fever and hypoxia. CXR and CT chest show findigs suggestive if multifocal pneumonia. Will start on vanc, zosyn and levaquin Follow up blood cultures, lactic acid, obtain urine legionella and streptococcal antigen (4) Acute respiratory failure with hypoxia Current Visit: Yes Status: Acute Assessment and plan: Likely 2/2 to HCAp/ multifocal pneumonia. Continue antibiotics and O2 supplementation (5) Acute blood loss anemia Current Visit: Yes Status: Acute Assessment and plan: likely 2/2 to acute upper GI bleed Hemoglobin was 6.9 with positive hemooccult. Bolused 80mg IV protonix and will start on protonix 40mg IV BID Transfuse 2 units of PRBC. GI consulted and appreciate recs. Monitor hemoglobin q 8hrs (6) Acute kidney injury Current Visit: Yes Status: Acute Assessment and plan: will give IV fluids and monitor creatinine (7) DVT (deep venous thrombosis) Current Visit: No Status: Chronic Assessment and plan: Pt noted to have a DVT per his and recently started on anticoagulation ( records from [facility] pending) Hemoglobin was 6.9 with positive hemooccult. Bolused 80mg IV protonix and will start on protonix 40mg IV BID Transfuse 2 units of PRBC. Will need vascular surgery consult for possible IVC filter placement if records do confirm DVT Qualifiers: Laterality: left Qualified Code(s): I82.402 - Acute embolism and thrombosis of unspecified deep veins of left lower extremity (8) Hyperkalemia Current Visit: Yes Status: Acute Assessment and plan: Monitor potassium (9) Lung cancer Current Visit: Yes Status: Acute Assessment and plan: On immunotherapy, outpatient follow up Qualifiers: Qualified Code(s): C34.90 - Malignant neoplasm of unspecified part of unspecified bronchus or lung (10) Adrenal insufficiency Current Visit: Yes Status: Acute Assessment and plan: From malignant melanoma of adrenal with mets to lungs. Continue steroids (11) Elevated troponin Current Visit: Yes Status: Acute Assessment and plan: likely demand ischemia (12) DVT prophylaxis Current Visit: No Status: Acute Assessment and plan: SCDs - Time Spent With Patient Total time spent is greater than 50% in coordination of care (as documented) at patient's floor/unit and/or counseling patient:
[2018-08-12] MEDS ORDERED: SODIUM CHLORIDE/NAHCO3/KCL/PEG 4,000 ML SOLN.RECON PO ONE (17:37)
[2018-08-12] MEDS: Pantoprazole 40 MG VIAL IVP SCH (19:12)
[2018-08-12] MEDS: Piperacillin/Tazobactam 3.375 GM in 0.9 % Sodium Chloride Mini Bag 100 ML IVPB SCH (19:13)
[2018-08-12] MEDS: 0.9 % Sodium Chloride 1,000 ML IVC SCH (19:23)
[2018-08-12] MEDS ORDERED: 0.9 % Sodium Chloride 250 ML ONE (20:36)
[2018-08-12] MEDS: hydrALAZINE 10 MG TABLET PO SCH (20:38)
[2018-08-12] MEDS: Gabapentin 100 MG CAPSULE PO SCH (20:38)
[2018-08-13] MEDS ORDERED: 0.9 % Sodium Chloride 250 ML ONE (00:36)
[2018-08-13] MEDS: Piperacillin/Tazobactam 3.375 GM in 0.9 % Sodium Chloride Mini Bag 100 ML IVPB SCH ×3 (01:44→17:58)
[2018-08-13 04:30] LABS: Calcium 7.4 mg/dL (8.6-10.3); Magnesium 1.8 mg/dL (1.6-2.6); Phosphorous 4.9 mg/dL (2.7-4.5); Potassium 5.1 mEq/L (3.5-5.1)
[2018-08-13 04:31] LABS: Red Blood Count 2.88 M/mcL (4.19-5.50); Red Cell Distribution Width 16.4 % (11.5-14.5)
[2018-08-13 04:33] LABS: Hematocrit 26.9 % (37.5-50.1); Hemoglobin 8.6 g/dL (12.9-16.9); Immature Granulocytes % 2.1 % (0-4); Immature Platelets 1.1 % (1.1-6.1); Lymphocytes # 0.3 K/mcL (0.6-4.6); Lymphocytes % 8.5 %; Mean Corpuscular Hemoglobin 29.9 pg (28.0-33.3); Mean Corpuscular Volume 93.4 fL (83.0-100.0); Mean Platelet Volume 8.8 fL (9.4-12.4); Monocytes # 0.1 K/mcL (0.0-1.3); Monocytes % 2.1 %; Neutrophils # 3.3 K/mcL (1.6-8.9); Segmented Neutrophils % 87.3 %
[2018-08-13 04:55] LABS: Platelet Count 80 K/mcL (140-400)
[2018-08-13] MEDS: Pantoprazole 40 MG VIAL IVP SCH (05:29)
[2018-08-13] MEDS ORDERED: *HR* Propofol 200 MG/20 ML VIAL IVP ONE ×2 (06:58→07:04)
[2018-08-13] MEDS ORDERED: Lidocaine -MPF 2% 2 ML VIAL ONE (06:58)
[2018-08-13] MEDS ORDERED: *HR* Midazolam HCl 2 MG/2 ML VIAL ONE (07:03)
--- NOTE | 2018-08-13 07:48 | Anesthesia Evaluation PreOp ---
Date of Encounter: 08/13/18 Time of Encounter: 08:10 - Past History Planned Operation: EGD/colonoscopy Cardiac History: Arrhythmia (a. fib, on Beta zarina), Other (currently being treated for DVT) Pulmonary History: Other (Patient is resident of group home facility, admitted yesterday with HCAP, was SOB, lethargic, hypoxic. Found to have pleural effusion, chest tube placed.) Other Medical History: Renal (has malignant melanoma with adrenal gland, renal mets.), Diabetes Type II Anesthesia History: No Prior Anesthetic Complications, Past Anesthesia Alcohol Use: none Drug use: none Medications and Allergies Multivit-Min/FA/Lycopen/Lutein [A Thru Z Select Multivit Tab] 1 tab PO DAILY [History] Aspirin Enteric Coated [Aspirin EC] 81 mg PO DAILY 07/19/18 [History] Acetaminophen [Tylenol] 650 mg PO Q6HR PRN tablet 07/26/18 [Rx] Tamsulosin [Flomax] 0.4 mg PO DAILY capsule 07/26/18 [Rx] Carvedilol [Coreg] 6.25 mg PO BIDWM 08/12/18 [History] Gabapentin [Neurontin] 100 mg PO BID 08/12/18 [History] Insulin ASPART [Novolog] 8 unit SQ TIDWM 08/12/18 [History] Insulin NPH [HumuLIN NPH] 8 unit SQ HS 08/12/18 [History] Insulin NPH [HumuLIN NPH] 12 unit SQ QAM 08/12/18 [History] Metoclopramide [Reglan] 10 mg PO TID 08/12/18 [History] Sulfamethoxazole/Trimeth DS [Bactrim DS] 1 tab PO MOWEFR 08/12/18 [History] hydrALAZINE [HydrALAZINE] 10 mg PO TID 08/12/18 [History] metFORMIN [Glucophage] 500 mg PO 0800 08/12/18 [History] predniSONE [PredniSONE] 70 mg PO DAILY 08/12/18 [History] 3 Allergy/AdvReac Type Severity Reaction Status Date / Time No Known Allergies Allergy Verified 06/13/15 14:30 - Meds/Allergy Pre-op Review Medications Reviewed: Yes Allergies Reviewed: Yes Beta Blockers on Current Med List: Yes (@1866) Anesthesia Results - Labs 08/13/18 04:00 08/13/18 04:00 - Imaging EKG: report reviewed (sinus rhythm) Anesthesia Exam Selected Entries 08/13/18 07:10 Temperature 96.0 F L Pulse Rate 76 Respiratory Rate 16 Blood Pressure 174/90 O2 Sat by Pulse Oximetry 96 Oxygen Delivery Method Room Air - HEENT Pupil (Motor): Pupils equal Mallampati: III Teeth: Missing, Poor dentition Oral Opening: Greater than 3 - Cardiac Rhythm: Irregular Murmur: None - Pulmonary Breath Sounds: bilateral Rales, bilateral Rhonchi Respiratory Effort: Symmetrical Anesthesia Assess/Plan ASA Score: 4 (Patient is DNR-CC status which will have to be suspended for the procedure. Discussed this at length with patient) Modified Imperial Scale for Level of Consciousness: Cooperative, oriented, and tranquil Anesthetic Plan: MAC Monitoring Plan: Standard Monitors Recovery Plan: Other (Discussed MAC anesthesia, agrees to proceed.)
[2018-08-13] MEDS ORDERED: Tetracaine/Benzocaine/Butamben 1 SPRAY AEROSOL MM ONE (08:14)
[2018-08-13] MEDS ORDERED: Simethicone 40 MG/0.6 ML MLS IR ONE (08:14)
[2018-08-13] MEDS ORDERED: 0.9 % Sodium Chloride 1,000 ML IVC SCH (08:15)
[2018-08-13] MEDS ORDERED: predniSONE 10 MG TABLET PO SCH (09:00)
[2018-08-13] MEDS ORDERED: Aspirin Enteric Coated 81 MG Tablet PO SCH (09:00)
[2018-08-13] MEDS ORDERED: *HR* Dextrose 50 % in Water (Syg) 50 ML SYRINGE IVP PRN (10:13)
[2018-08-13] MEDS ORDERED: Dextrose Gel 15 GM/37.5 ML TUBE PO PRN ×2 (10:13)
[2018-08-13] MEDS ORDERED: D5% in Water 1,000 ML IVC PRN (10:13)
[2018-08-13] MEDS: Multivit/Ca/Min/Fe/FA 1 TAB TABLET PO SCH (10:33)
[2018-08-13] MEDS: Gabapentin 100 MG CAPSULE PO SCH ×2 (10:33→21:34)
[2018-08-13] MEDS: hydrALAZINE 10 MG TABLET PO SCH ×3 (10:34→21:34)
[2018-08-13] MEDS: amLODIPine 5 MG TABLET PO SCH (10:34)
--- NOTE | 2018-08-13 10:35 | Palliative - Consult Note ---
<Aylin Laird N - Last Filed: 08/13/18 13:43> Date of Encounter: 08/13/18 Time of Encounter: 10:35 - Assessment and Plan (1) Goals of care, counseling/discussion Current Visit: Yes Status: Acute Assessment and plan: Goals of care discussion conducted with patient and his . They state that prior to his hospitalization last month, he was living at home without any problems, and was able to use a home exercise bike on a regular basis. Mr. Catherine states that his main goal is to not return to the rehab facility he was in prior to returning to the hospital yesterday, due to concerns for acquiring additional infections, as he was only present in that facility for a few days before he became ill. He would like to pursue home health for physical and occupational therapy. Patient's code status is currently DNR-Comfort Care; however, patient states that he would like to pursue all treatment options, including further cancer treatments. He does not want resuscitative measures if he undergoes cardiac arrest. Upon further discussion with the patient and his , his code status will be changed to DNR-Comfort Care-Arrest. Patient and his were educated about what hospice care is and what services may be provided; however, they are not ready to consider that at this time. (2) HCAP (healthcare-associated pneumonia) Current Visit: Yes Status: Acute Assessment and plan: Patient has had a cough with some productive sputum. Chest imaging demonstrated bibasilar consolidation with left pleural effusion, with findings concerning for multifocal pneumonia. Continue antibiotic therapy with vancomycin, zosyn, and levaquin. Urine legionella and streptococcal antigens pending. (3) Acute GI bleeding Current Visit: Yes Status: Acute Assessment and plan: At the time of admission, patient had hemoglobin of 6.9 and a positive stool occult test. He received 2 units of blood, with improvement in hemoglobin to 8.6. He underwent EGD and colonoscopy today, neither of which revealed evidence of active bleeding. Patient is currently being monitored with Hgb/Hct Q8H. Plan for continued monitoring per GI recommendations. (4) MARJAN (acute kidney injury) Current Visit: No Status: Acute Assessment and plan: Patient had elevated serum creatinine of 2.56 at the time of admission. He has bee started on IV fluid hydration. Recommend continued fluids and monitoring per primary team. (5) DVT (deep venous thrombosis) Current Visit: No Status: Chronic Assessment and plan: Patient reports being diagnosed with a DVT while hospitalized in [place]. He was initially on anticoagulation; however, this was discontinued due to anemia. Per primary team, vascular surgery consultation pending for possible IVC filter placement. Qualifiers: DVT location: lower extremity Affected thrombotic vein of extremity: unspecified lower extremity proximal vein Chronicity: acute Laterality: unspecified laterality Qualified Code(s): I82.4Y9 - Acute embolism and thrombosis of unspecified deep veins of unspecified proximal lower extremity (6) History of malignant melanoma Current Visit: No Status: Acute Assessment and plan: Patient is under the care of an oncologist through the [facility]. He has not received immunotherapy for several weeks due to acute illness. Patient states that he plans to follow up with his oncologist after discharge for further evaluation and treatment. Palliative-CN HPI - Data of Consult Patient: new to practice Consult date: 08/13/18 Requesting Physician: Lj Khan MD [facility] - Consult Narrative Palliative Care/Comfort Measures: Palliative care Reason for consult: Goals of Care History of present illness: Mr. Catherine is a 57 year old male who presented to the ED with fever, productive cough, and decreased level of consciousness. He was hospitalized at [facility] in September for HCAP, during which he developed acute kidney injury. At his request, he was transferred to the [facility] in order to be near his oncology team, and completed treatment there. He was discharged to an outpatient rehab facility a few days ago. Per admission documentation, patient' s found him less responsive yesterday when she went to visit him, and noted that he was having dark stools. During evaluation in the ED, he was found to have a recurrent pneumonia and suspected GI bleed. He was admitted for further evaluation and management. Palliative care team was consulted to assist with determination of goals of care. On examination today, patient appears comfortable. He denies any acute shortness of breath, cough, or pain. He expresses feeling tired; however, he attributes this to having recently returned from having EGD and colonoscopy performed. Nursing staff reports no acute events at this time. CC: Lj Khan MD - Time Spent with Patient Time: Total time spent is greater than 50% in coordination of care (as documented) at patient's floor/unit and/or counseling patient: Past Med Surg Social Fam HX - Past Medical History Medical history: cancer, DVT, diabetes, hypertension, pulmonary embolus, other Additional medical history: adrenal gland and left lung cancer, skin cancer Psychiatric history: no psych history - Past Surgical History Surgical History: cancer surgery, other Additional surgical history: skin cancer removed, lymph nodes removed from left side, left pleurax catheter - Social History Smoking Status: Never smoker Smokeless Tobacco Status: No Alcohol use: none Drug use: none - Family History Maternal Grandmother Hx Family Cancer: Yes Medications and Allergies Multivit-Min/FA/Lycopen/Lutein [A Thru Z Select Multivit Tab] 1 tab PO DAILY [History] Aspirin Enteric Coated [Aspirin EC] 81 mg PO DAILY 07/19/18 [History] Acetaminophen [Tylenol] 650 mg PO Q6HR PRN tablet 07/26/18 [Rx] Tamsulosin [Flomax] 0.4 mg PO DAILY capsule 07/26/18 [Rx] Carvedilol [Coreg] 6.25 mg PO BIDWM 08/12/18 [History] Gabapentin [Neurontin] 100 mg PO BID 08/12/18 [History] Insulin ASPART [Novolog] 8 unit SQ TIDWM 08/12/18 [History] Insulin NPH [HumuLIN NPH] 8 unit SQ HS 08/12/18 [History] Insulin NPH [HumuLIN NPH] 12 unit SQ QAM 08/12/18 [History] Metoclopramide [Reglan] 10 mg PO TID 08/12/18 [History] Sulfamethoxazole/Trimeth DS [Bactrim DS] 1 tab PO MOWEFR 08/12/18 [History] hydrALAZINE [HydrALAZINE] 10 mg PO TID 08/12/18 [History] metFORMIN [Glucophage] 500 mg PO 0800 08/12/18 [History] predniSONE [PredniSONE] 70 mg PO DAILY 08/12/18 [History] 3 Allergy/AdvReac Type Severity Reaction Status Date / Time No Known Allergies Allergy Verified 06/13/15 14:30 Palliative Care-Exam - Constitutional Vitals: Temp Pulse Resp BP Pulse Ox 97.6 F 75 16 185/88 96 08/13/18 08:01 08/13/18 08:01 08/13/18 08:01 08/13/18 08:01 08/13/18 08:01 Exam: GENERAL: Pleasant middle-aged male sitting in bed comfortably. He does not appear to be in acute distress. He appears sleepy. HEENT: Atraumatic and normocephalic. CARDIOVASCULAR: Regular rate and rhythm. S1 and S2 present. No murmurs, rubs, or gallops. RESPIRATORY: Slightly decreased breath sounds on the left, particularly toward the lung base. No wheezes or rhonchi present. ABDOMEN: Soft, nontender, and nondistended. No rebound tenderness or guarding present. EXTREMITIES: 1+ pitting edema present in bilateral lower extremities. Extensive bruising present on the inside of the right upper leg, which patient attributes to presence of DVT. No tenderness to palpation; however, patient does have peripheral neuropathy. NEUROLOGIC: Alert and oriented x 3. Patient is cooperative with exam and answers questions appropriately. Internal Medicine - CN: Reslt - Labs CBC & Chem 7: 08/13/18 04:00 08/13/18 04:00 Labs: Short CBC 08/13/18 Range/Units 04:00 WBC 3.8 L (4.3-11.1) K/mcL Hgb 8.6 L D (12.9-16.9) g/dL Hct 26.9 L (37.5-50.1) % Plt Count 80 L (140-400) K/mcL Neutrophils # 3.3 (1.6-8.9) K/mcL BMP 08/13/18 04:00 Sodium 136 Potassium 5.1 Chloride 106 Carbon Dioxide 21 L BUN 69 H Creatinine 2.60 H Glucose 252 H Calcium 7.4 L - ABG Interpretation ABG results: PT/INR, D-dimer PT 10.8 Seconds (9.4-12.1) 08/12/18 12:38 Consult Discharge Plan - Plan [facility]errals: [facility],PC[facility] [Primary Care Provider] - Palliative Quality Palliative Quality: Screen for Code Status: Yes, Screen for Goals of Care: Yes, Screen for Pain: Yes, If Pain Regimen Started, Initiate Bowel Regimen: NA, Screen for Nausea/Vomitting: Yes Code Status: 08/12/18 19:21 DNR [Resuscitation Status: Active] [RES] Routine Comment: Resuscitation Status: DNR-Comfort Care <Ambar Yarbrough - Last Filed: 08/13/18 14:25> Date of Encounter: 08/13/18 Palliative-CN HPI - Data of Consult Requesting Physician: Lj Khan MD [facility] Provider[facility] - Consult Narrative History of present illness: Mr. Catherine is a 57 year old male CC: Lj Khan MD - Time Spent with Patient Time: Total time spent is greater than 50% in coordination of care (as documented) at patient's floor/unit and/or counseling patient: Palliative Care-Exam - Constitutional Vitals: Temp Pulse Resp BP Pulse Ox 96.2 F L 70 16 190/114 100 08/13/18 10:53 08/13/18 10:53 08/13/18 10:53 08/13/18 10:53 08/13/18 10:53 Internal Medicine - CN: Reslt - Labs CBC & Chem 7: 08/13/18 04:00 08/13/18 04:00 Labs: Short CBC 08/13/18 Range/Units 04:00 WBC 3.8 L (4.3-11.1) K/mcL Hgb 8.6 L D (12.9-16.9) g/dL Hct 26.9 L (37.5-50.1) % Plt Count 80 L (140-400) K/mcL Neutrophils # 3.3 (1.6-8.9) K/mcL BMP 08/13/18 04:00 Sodium 136 Potassium 5.1 Chloride 106 Carbon Dioxide 21 L BUN 69 H Creatinine 2.60 H Glucose 252 H Calcium 7.4 L - ABG Interpretation ABG results: PT/INR, D-dimer PT 10.8 Seconds (9.4-12.1) 08/12/18 12:38 - Attending Attestation I was present with the resident during the history and exam. I discussed the case with the resident and agree with the findings and plan as documented in the residents note. Patient and are still very hopeful of pt's ability to recover from his current illness and to continue chemotherapy. They believe that he is sick this time due to his stay in the NH and would like patient to return home with PT/OT and home services. Code status changes to DNRCCA/DNI. Palliative Quality Code Status: 08/12/18 19:21 DNR [Resuscitation Status: Active] [RES] Routine Comment: Resuscitation Status: DNR-Comfort Care 08/13/18 13:47 CODE [Resuscitation Status: Active] [RES] Routine Comment: Resuscitation Status: [id number]
--- NOTE | 2018-08-13 10:48 | Gastroenterology Consult Note ---
<Ant Lamas Marylu - Last Filed: 08/13/18 10:42> Date of Encounter: 08/13/18 Time of Encounter: 10:30 - Assessment and plan (1) Anemia Current Visit: Yes Status: Acute Assessment and plan: Hgb on admission was 6.9 with positive fecal occult blood test. He has received 2 units PRBC and this AM Hgb 8.6. Continue to monitor CBC and transfuse PRBC as needed. Plan for EGD and colonoscopy today. Unable to check iron profile as he has already received PRBC. Qualifiers: Anemia type: unspecified type Qualified Code(s): D64.9 - Anemia, unspecified - Time Spent With Patient Total time spent is greater than 50% in coordination of care (as documented) at patient's floor/unit and/or counseling patient: GI History of Present Illness - Data of Consult Patient: new to practice Consult date: 08/13/18 Requesting Physician: Lj Khan MD - Consult Narrative Reason for consult: Acute GI bleed History of present illness: Mr. Catherine is a 57 year old male with PMHx of malignant melanoma of the adrenal gland and lungs for which he is on immunotherapy, left sided pleurx drain, adrenal insufficiency on oral steroids, DM, PE, DVT who presented with complaints of fever, being lethargic and less responsive. Patient was recently at [facility] where he was treated for HCAP and transferred to [facility] where he completed his treatment and was transferred to a prison. Patient's notes that at [facility], he was diagnosed with a DVT and started on therapeutic anticaogulation and transferred to a prison about 3 days ago. He had a fever the day of admission of 103. CXR and CT chest show findigs suggestive of multifocal pneumonia. He was started on Vanco, Zosyn, and Levaquin. We were consulted to evaluate his anemia. No melena, hematochezia, or hematemesis. Hgb on admission was 6.9 with positive fecal occult blood test. He has received 2 units PRBC and this AM Hgb 8.6. Procedures: Colonoscopy 07/20/2012 Dr. Sue: 8 mm hyperplastic polyp NSAIDs: ASA Anticoagulation: None Past Med Surg Social Fam HX - Past Medical History Medical history: cancer, DVT, diabetes, hypertension, pulmonary embolus, other Additional medical history: adrenal gland and left lung cancer, skin cancer Psychiatric history: no psych history - Past Surgical History Surgical History: cancer surgery, other Additional surgical history: skin cancer removed, lymph nodes removed from left side, left pleurax catheter - Social History Smoking Status: Never smoker Smokeless Tobacco Status: No Alcohol use: none Drug use: none - Family History Maternal Grandmother Hx Family Cancer: Yes - Gastrointestinal Gastrointestinal: Present: as per HPI - Constitutional Constitutional: as per HPI - EENT Eyes: as per HPI Ears: Present: as per HPI Nose, mouth and throat: Present: as per HPI - Cardiovascular Cardiovascular ROS: Present: as per HPI - Respiratory Respiratory IM: Present: as per HPI - Genitourinary Genitourinary: Absent: change in color, Urinary frequency - Neurological ROS Neurological GI: Present: as per HPI - Hematologic/Lymphatic Hematologic/Lymphatic pediatric: Present: as per HPI - Musculoskeletal Musculoskeletal ROS GI: Present: as per HPI - Integumentary Integumentary GI: Present: as per HPI - Psychiatric ROS Psychiatric GI: Present: as per HPI - Endocrine Endocrine IM: Present: as per HPI - Constitutional Vitals: Temp Pulse Resp BP Pulse Ox 97.6 F 75 16 185/88 96 08/13/18 08:01 08/13/18 08:01 08/13/18 08:01 08/13/18 08:01 08/13/18 08:01 General appearance: Present: cooperative, A&O X 3, no acute distress, answers questions appropriately - Head Head exam: Present: atraumatic, normocephalic - Eye Eye exam: Present: normal appearance, sclera anicteric - ENT ENT exam: Present: mucous membranes dry - Neck Neck exam general surgery: Present: normal inspection, trachea midline - Respiratory Respiratory exam: Present: decreased breath sounds, CTAB. Absent: rales, rhonchi Additional comments: pleurx drain on left chest - Cardiovascular Cardiovascular exam: Present: RRR, +S1, +S2 - GI/Abdominal GI/Abdominal exam: Present: soft, no peritoneal signs. Absent: distended, firm , guarding, tenderness - Rectal Rectal exam: Present: deferred - Extremities Exam Extremities exam: Present: warm - Neurological Exam Neurological exam: Present: no focal deficits - Psychiatric Psychiatric exam: Present: normal affect, normal mood - Skin Skin exam: Present: dry, intact, normal color, warm Results - Labs CBC & Chem 7: 08/13/18 04:00 08/13/18 04:00 Labs: Last Result Calcium 7.4 mg/dL (8.6-10.3) L 08/13/18 04:00 Troponin I 0.05 ng/mL (< 0.04) H* 08/12/18 12:38 Entire Visit Hgb 8.6 g/dL (12.9-16.9) L D 08/13/18 04:00 Hct 26.9 % (37.5-50.1) L 08/13/18 04:00 PT 10.8 Seconds (9.4-12.1) 08/12/18 12:38 Total Bilirubin 0.7 mg/dL (0.3-1.0) 08/12/18 12:38 AST 28 Units/L (13-39) 08/12/18 12:38 ALT 39 Units/L (7-52) 08/12/18 12:38 - ABG ABG results: PT/INR, D-dimer PT 10.8 Seconds (9.4-12.1) 08/12/18 12:38 Consult Discharge Plan - Plan [facility]errals: [facility] [Primary Care Provider] - <Aruna Sampson - Last Filed: 08/13/18 12:47> Date of Encounter: 08/13/18 Time of Encounter: 08:00 - Time Spent With Patient Total time spent is greater than 50% in coordination of care (as documented) at patient's floor/unit and/or counseling patient: GI History of Present Illness - Data of Consult Requesting Physician: Lj Khan MD - Consult Narrative History of present illness: Mr. Catherine is a 57 year old male - Constitutional Vitals: Temp Pulse Resp BP Pulse Ox 96.2 F L 70 16 190/114 100 08/13/18 10:53 08/13/18 10:53 08/13/18 10:53 08/13/18 10:53 08/13/18 10:53 Results - Labs CBC & Chem 7: 08/13/18 04:00 08/13/18 04:00 Labs: Last Result Calcium 7.4 mg/dL (8.6-10.3) L 08/13/18 04:00 Troponin I 0.05 ng/mL (< 0.04) H* 08/12/18 12:38 Entire Visit Hgb 8.6 g/dL (12.9-16.9) L D 08/13/18 04:00 Hct 26.9 % (37.5-50.1) L 08/13/18 04:00 PT 10.8 Seconds (9.4-12.1) 08/12/18 12:38 Total Bilirubin 0.7 mg/dL (0.3-1.0) 08/12/18 12:38 AST 28 Units/L (13-39) 08/12/18 12:38 ALT 39 Units/L (7-52) 08/12/18 12:38 - ABG ABG results: PT/INR, D-dimer PT 10.8 Seconds (9.4-12.1) 08/12/18 12:38 - Attending Attestation I have personally performed a face to face evaluation on this patient. I have reviewed and agree with the care plan. History and Exam by me shows: Patient seen denies any abdominal pain. On examination abdomen is benign. Assessment patient with the history metastatic malignant melanoma now with anemia and black stool. Recommendation: Patient to have EGD colonoscopy done today follow H&H
[2018-08-13] MEDS: 0.9 % Sodium Chloride 1,000 ML IVC SCH (12:11)
[2018-08-13] MEDS: Insulin LISPRO 300 UNITS/3 ML VIAL SQ SCH ×3 (12:31→21:34)
--- NOTE | 2018-08-13 13:55 | Internal Med Progress Note ---
Hospitalist Progress Note - Encounter Date of Encounter: 08/13/18 Time of Encounter: 09:20 - Subjective Interval History: 57 M with medical history of malignant melanoma being managed via [facility]. Patient has had multiple recurrent inpatient hospitalizations. Additionally has a medical history of right lower extremity DVT. He is admitted and being managed for acute blood loss anemia due to suspected acute GI bleed, acute kidney injury and generalized weakness. He is a resident of a senior living facility. He is seen at the bedside with his who is his power of deputy prosecuting attorney. He was asking for feeds at time of review and denies new complains He still complains of lethargy He is s/p EGD/Colonoscopy with no obvious source of bleeding (official report pending at time of review) - Exam Vitals: Temp Pulse Resp BP Pulse Ox 96.2 F L 70 16 190/114 100 08/13/18 10:53 08/13/18 10:53 08/13/18 10:53 08/13/18 10:53 08/13/18 10:53 Exam: Gen: Sitting in bed, in no form of distress HEENT: Moist oral mucosa, not cyanotic Chest: Bilateral lung bases thonchi L>R CVS: HR and BP WNL, S1, S2 only, no m/g/r Abdomen: Flat, soft, not tender, no palpably enlarged organs Extremities: Bilateral pitting pedal edema, R> L , diffuse erythema and bruising on RLEup to the groin, minimal affectation of LLE for same. Bilateral dwyer excoriations neuro: Awake, alert and oriented X3, no focal deficits - Assessment and Plan (1) DVT (deep venous thrombosis) Current Visit: Yes Status: Chronic Assessment and Plan: Patient reports being diagnosed with a DVT while hospitalized in [place]. He was initially on anticoagulation; however, this was discontinued due to anemia. I am not sure the patient is a good candidate for surgery, however, discussed with Dr. Wood vascular surgery for possible IVC filter placement (2) DVT prophylaxis Current Visit: Yes Status: Acute Assessment and Plan: No medical DVT prophylaxis due to GIB and anemia No SCDs due to risk of PE. (3) Sepsis Current Visit: Yes Status: Acute Assessment and Plan: Likely secondary to bacterial HCAp. Pt came in with fever and hypoxia. CXR and CT chest show findings suggestive if multifocal pneumonia. Legionella and strep Ag negative Blood culture negative Continue Vanc, Zosyn and Levaquin Follow final cultures Send sputum culture, cough is productive Patient is immunosuppressed from CA and hx of immunotherapy (4) Hyperkalemia Current Visit: Yes Status: Acute Assessment and Plan: Improving, K 5.4 (5.1) Due to MARJAN (5) HCAP (healthcare-associated pneumonia) Current Visit: Yes Status: Acute Assessment and Plan: mgt as in sepsis Continue O2 as needed (6) Acute GI bleeding Current Visit: Yes Status: Acute Assessment and Plan: At the time of admission, patient had hemoglobin of 6.9 and a positive stool occult test. He received 2 units of blood, with improvement in hemoglobin to 8.6. He underwent EGD and colonoscopy today, neither of which revealed evidence of active bleeding. Patient is currently being monitored with Hgb/Hct Q8H. Plan for continued monitoring per GI recommendations. (7) Acute blood loss anemia Current Visit: Yes Status: Acute Assessment and Plan: likely 2/2 to acute upper GI bleed Hemoglobin was 6.9 with positive hemooccult. s/p 2 units RBCs b now 8 Continue to monitor EGD/Colonoscopy with no obvious source of bleeding (8) Acute kidney injury Current Visit: Yes Status: Acute Assessment and Plan: will give IV fluids and monitor creatinine (9) Lung cancer Current Visit: Yes Status: Acute Assessment and Plan: On immunotherapy, outpatient follow up (10) Acute respiratory failure with hypoxia Current Visit: Yes Status: Acute Assessment and Plan: Likely 2/2 to HCAp/ multifocal pneumonia. 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 Continue steroids - Time Spent with Patient Total time spent is greater than 50% in coordination of care (as documented) at patient's floor/unit and/or counseling patient: Plan of Care Discussed with: family Internal Medicine: Result - Labs CBC & Chem 7: 08/13/18 04:00 08/13/18 04:00 Labs: Short CBC 08/13/18 Range/Units 04:00 WBC 3.8 L (4.3-11.1) K/mcL Hgb 8.6 L D (12.9-16.9) g/dL Hct 26.9 L (37.5-50.1) % Plt Count 80 L (140-400) K/mcL Neutrophils # 3.3 (1.6-8.9) K/mcL BMP 08/13/18 04:00 Sodium 136 Potassium 5.1 Chloride 106 Carbon Dioxide 21 L BUN 69 H Creatinine 2.60 H Glucose 252 H Calcium 7.4 L - ABG Interpretation ABG results: PT/INR, D-dimer PT 10.8 Seconds (9.4-12.1) 08/12/18 12:38 Consult Discharge Plan - Plan [facility]errals: [facility] [Primary Care Provider] - (1) DVT (deep venous thrombosis) Qualifiers: DVT location: lower extremity Affected thrombotic vein of extremity: unspecified lower extremity proximal vein Chronicity: acute Laterality: unspecified laterality Qualified Code(s): I82.4Y9 - Acute embolism and thrombosis of unspecified deep veins of unspecified proximal lower extremity (3) Sepsis Qualifiers: Sepsis type: sepsis due to unspecified organism Qualified Code(s): A41.9 - Sepsis, unspecified organism (9) Lung cancer Qualifiers: Qualified Code(s): C34.90 - Malignant neoplasm of unspecified part of unspecified bronchus or lung
--- NOTE | 2018-08-13 17:15 | Vascular/Endovasc Consult Note ---
Date of Encounter: 08/13/18 Time of Encounter: 15:30 Assessment and Plan (1) DVT (deep venous thrombosis) Current Visit: Yes Status: Acute Patient has history of right lower extremity DVT diagnosed at [facility]. I do not have the report at the time of this dictation to review. According to the patient's the DVT was identified in the popliteal region. The patient wishes to proceed with IVC filter placement once medically stabilized. As her concern about him being septic it would be imperative that his sepsis be resolved prior to placing an intravascular foreign body. Therefore will tentatively plan on placing the IVC filter on Thursday. The procedure as well as the risks and benefits is well as the complications and alternatives were reviewed with the patient and his . They wish to proceed as planned and recommended. All questions were answered. Qualifiers: DVT location: lower extremity Affected thrombotic vein of extremity: unspecified lower extremity proximal vein Chronicity: acute Laterality: unspecified laterality Qualified Code(s): I82.4Y9 - Acute embolism and thrombosis of unspecified deep veins of unspecified proximal lower extremity (2) Acute blood loss anemia Current Visit: Yes Status: Acute Patient is being followed for his acute blood loss anemia and may require further transfusions as clinically indicated. (3) Melanoma Current Visit: No Status: Chronic Patient is undergoing immunotherapy for metastatic melanoma Qualifiers: Melanoma location: unspecified site Qualified Code(s): C43.9 - Malignant melanoma of skin, unspecified - History of Present Illness Consult date: 08/13/18 Consult reason: DVT and GI bleeding Chief complaint: Pneumonia History of present illness: Mr. Catherine is a 57 year old male Who was transferred from [facility] yesterday for treatment of pneumonia. Patient was also found to have a variety of other ongoing issues including anemia and positive occult blood in his stools. The patient's story is rather complicated and begin so proximally 4 years ago when he was discovered to have a left flank melanoma. He underwent treatment at [facility]. Patient developed a DVT and pulmonary embolism while under experimental drug treatment at that time. He was treated for 6 months with Xarleto and then the anticoagulation therapy was stopped. Subsequently the patient has been placed on immunotherapy. He was recently seen at [place] for pneumonia and was transferred to the [facility] where he has been receiving his treatment. While at the [facility] he was diagnosed as having a right lower extremity DVT that was acute. The patient was placed on Lovenox. From there he was transferred to [place]. He states that he required a pneumonia while at [facility] and deteriorated clinically and then was transferred to [place] for evaluation and admitted yesterday. The patient has lower extremity edema bilaterally. He states were that this is improving since hospitalization. He is receiving dual therapy antibiotics for pneumonia. He has received blood transfusions for hemoglobin with approximately measurement of 6.5 g. He also has been seen in consultation by GI medicine. Vascular surgery was asked see the patient for placement of an IVC filter once he is medically stable. It should be noted that the patient has metastatic disease from his melanoma. It is now involving his left adrenal gland and left lung. The patient is also in a DNR status. The patient does wish to receive further treatment however for his ongoing medical problems. It is his plan to return to home once he is medically stabilized and receive further therapy from home rather than returning to the extended care facility. Past Med Surg Social Fam HX - Past Medical History Medical history: cancer, DVT, diabetes, hypertension, pulmonary embolus, other Additional medical history: adrenal gland and left lung cancer, skin cancer Psychiatric history: no psych history - Past Surgical History Surgical History: cancer surgery, other Additional surgical history: skin cancer removed, lymph nodes removed from left side, left pleurax catheter - Social History Smoking Status: Never smoker Smokeless Tobacco Status: No Alcohol use: none Drug use: none - Family History Maternal Grandmother Hx Family Cancer: Yes Medications and Allergies Multivit-Min/FA/Lycopen/Lutein [A Thru Z Select Multivit Tab] 1 tab PO DAILY [History] Aspirin Enteric Coated [Aspirin EC] 81 mg PO DAILY 07/19/18 [History] Acetaminophen [Tylenol] 650 mg PO Q6HR PRN tablet 07/26/18 [Rx] Tamsulosin [Flomax] 0.4 mg PO DAILY capsule 07/26/18 [Rx] Carvedilol [Coreg] 6.25 mg PO BIDWM 08/12/18 [History] Gabapentin [Neurontin] 100 mg PO BID 08/12/18 [History] Insulin ASPART [Novolog] 8 unit SQ TIDWM 08/12/18 [History] Insulin NPH [HumuLIN NPH] 8 unit SQ HS 08/12/18 [History] Insulin NPH [HumuLIN NPH] 12 unit SQ QAM 08/12/18 [History] Metoclopramide [Reglan] 10 mg PO TID 08/12/18 [History] Sulfamethoxazole/Trimeth DS [Bactrim DS] 1 tab PO MOWEFR 08/12/18 [History] hydrALAZINE [HydrALAZINE] 10 mg PO TID 08/12/18 [History] metFORMIN [Glucophage] 500 mg PO 0800 08/12/18 [History] predniSONE [PredniSONE] 70 mg PO DAILY 08/12/18 [History] 3 Allergy/AdvReac Type Severity Reaction Status Date / Time No Known Allergies Allergy Verified 06/13/15 14:30 All Systems Review: The remainder of the systems were reviewed and are negative Exam Vital Signs, Last 4 Hours Temp Pulse Resp BP Pulse Ox 08/13/18 15:35 97.3 F L 68 16 132/77 99 General: Present: Conversant, Other (Ill appearing middle-aged white male) HEENT: Present: Atraumatic, Normocephaly, Trachea midline Neck: Absent: JVD, Midline deformity, Tracheal deviation Cardiac: Present: Reg Rate and Rhythm, Normal S1 and S2 Lungs: Present: Decreased breath sounds Neuro: Present: Alert and responsive Abdomen: Present: Soft, Non-tender. Absent: Masses Vascular: Present: Pulse, normal, Edema (Patient has edema of his lower extremities greater on the right side than the left. This is a 1-2+ level.), Color/Temperature (His feet are cool but not cold.() Skin: Present: Other (Patient has diffuse ecchymoses involving his left forearm as well as his abdominal area and the post roll medial aspect of the right thigh.) Consult Discharge Plan - Plan [facility]errals: [facility] [Primary Care Provider] -
--- NOTE | 2018-08-13 17:42 | Electrocardiograph Report ---
[facility] Test Date: 2018-08-12 Pat Name: Jas Catherine Department: EXAM8 Room: 2A35 Gender: M Family Coach: : 1960 Requested By: Felicitas Yen Order Number: [id number] Reading MD: Isrrael Ortez Measurements Intervals Walsh Rate: 91 P: 66 IA: 132 QRS: 70 QRSD: 84 T: 74 QT: 317 QTc: 390 Interpretive Statements Sinus rhythm RSR' in V1 or V2, right VCD or RVH Baseline wander in lead(s) V4 Electronically Signed On 08-13-2018 17:40:47 EDT by Isrrael Ortez
[2018-08-13 23:17] LABS: Hemoglobin 9.8 g/dL (12.9-16.9)
[2018-08-14] MEDS: Piperacillin/Tazobactam 3.375 GM in 0.9 % Sodium Chloride Mini Bag 100 ML IVPB SCH ×3 (00:40→16:16)
[2018-08-14] MEDS: Melatonin 3 MG TABLET PO PRN ×2 (02:03→21:01)
[2018-08-14 04:45] LABS: Eosinophils % 3.7 %; Immature Granulocytes % 0.9 % (0-4)
[2018-08-14 04:46] LABS: Eosinophils # 0.2 K/mcL (0.0-0.6); Hematocrit 27.8 % (37.5-50.1); Hemoglobin 9.1 g/dL (12.9-16.9); Lymphocytes # 0.4 K/mcL (0.6-4.6); Lymphocytes % 7.1 %; Mean Corpuscular HGB Conc 32.7 g/dL (31.6-35.5); Mean Corpuscular Hemoglobin 30.2 pg (28.0-33.3); Mean Corpuscular Volume 92.4 fL (83.0-100.0); Monocytes # 0.1 K/mcL (0.0-1.3); Monocytes % 2.2 %; Red Blood Count 3.01 M/mcL (4.19-5.50); Red Cell Distribution Width 16.4 % (11.5-14.5); Segmented Neutrophils % 86.1 %
[2018-08-14 04:48] LABS: Neutrophils # 4.7 K/mcL (1.6-8.9)
[2018-08-14 04:49] LABS: Platelet Count 72 K/mcL (140-400)
[2018-08-14 04:52] LABS: Calcium 7.3 mg/dL (8.6-10.3); Potassium 5.3 mEq/L (3.5-5.1)
[2018-08-14] MEDS: Insulin LISPRO 300 UNITS/3 ML VIAL SQ SCH ×7 (08:01→20:58)
[2018-08-14] MEDS: Gabapentin 100 MG CAPSULE PO SCH ×2 (08:14→21:01)
[2018-08-14] MEDS: hydrALAZINE 10 MG TABLET PO SCH ×3 (08:17→21:01)
[2018-08-14] MEDS: amLODIPine 5 MG TABLET PO SCH (08:18)
[2018-08-14] MEDS: Multivit/Ca/Min/Fe/FA 1 TAB TABLET PO SCH (08:19)
[2018-08-14] MEDS: 0.9 % Sodium Chloride 1,000 ML IVC SCH ×2 (08:34→21:00)
[2018-08-14] MEDS: Insulin DETEMIR 100 UNIT/ML X5UNITS SQ SCH (08:35)
[2018-08-14] MEDS ORDERED: predniSONE 20 MG TABLET PO SCH (09:00)
--- NOTE | 2018-08-14 10:20 | Palliative Progress Note ---
Date of Encounter: 08/14/18 Time of Encounter: 09:15 - Assessment and plan (1) Frequent loose stools Current Visit: Yes Status: Acute Assessment and plan: Patient complaining of frequent loose stools. Ordered Imodium PRN. Recommended Primary RN administer post evaluation from Kayexalate; loose stools prior to kayexalate ordered. Qualifiers: Diarrhea type: unspecified type Qualified Code(s): R19.7 - Diarrhea, unspecified (2) DVT (deep venous thrombosis) Current Visit: Yes Status: Acute Assessment and plan: Vascular surgery team consult appreciated. Qualifiers: DVT location: lower extremity Affected thrombotic vein of extremity: unspecified lower extremity proximal vein Chronicity: acute Laterality: unspecified laterality Qualified Code(s): I82.4Y9 - Acute embolism and thrombosis of unspecified deep veins of unspecified proximal lower extremity (3) History of malignant melanoma Current Visit: No Status: Acute Assessment and plan: Patient reports he is under the care of Oncologist through [facility] in [facility]. Denies treatment in the last 2 months due to illness. Desires to return to Oncologist at discharge for follow up. Reports at last visit Oncologist informed him that he "got all the cancer" and he was to be getting better, prior to acute illness from ECF. (4) HCAP (healthcare-associated pneumonia) Current Visit: Yes Status: Acute Assessment and plan: Patient receiving IV Antibiotics per primary team. Lungs clear to ausculation. Oxygen via NC present on assessment. WBC increased to 5.4. Had increased in body temperature overnight, treated with Tylenol. (5) Acute GI bleeding Current Visit: Yes Status: Acute Assessment and plan: Hemoglobin decreased to 9.1 today and hematocrit decreased to 27.8. Stool showed no obvious gross blood during cleaning. Plan to continue to follow Hgb/ Hct and GI recommendations. (6) Acute kidney injury Current Visit: Yes Status: Acute (7) Goals of care, counseling/discussion Current Visit: Yes Status: Acute Assessment and plan: Spoke with patient regarding goals of care. Desires to go home with PT/OT from [facility]. has re-arranged schedule with brothers and sisters to provide OTC care at home. Interested in supplementation with [employer] if eligible for Medicaid. Going to have complete paperwork for Medicaid this coming week. Denies interest in Hospice services at this time; verbalized understanding in benefits and how to attain if desires in the future. - Time Spent With Patient Total time spent is greater than 50% in coordination of care (as documented) at patient's floor/unit and/or counseling patient: - Subjective Interval history: Patient lying in bed upon arrival for assessment. Alert and oriented times 3; no family present at bedside. Patient denies pain, anxiety, dyspnea, nausea, and vomiting. Complaints of frequent loose stools. Patient's temperature noted to be elevated overnight, Tylenol administered, tolerated well. - Constitutional Vitals: Abnormal lab results RBC 3.01 M/mcL (4.19-5.50) L 08/14/18 04:20 Hgb 9.1 g/dL (12.9-16.9) L 08/14/18 04:20 Hct 27.8 % (37.5-50.1) L 08/14/18 04:20 RDW 16.4 % (11.5-14.5) H 08/14/18 04:20 Plt Count 72 K/mcL (140-400) L 08/14/18 04:20 MPV 9.0 fL (9.4-12.4) L 08/14/18 04:20 Lymphocytes # 0.4 K/mcL (0.6-4.6) L 08/14/18 04:20 Immature Plt Fraction 1.0 % (1.1-6.1) L 08/14/18 04:20 Sodium 135 mEq/L (136-145) L 08/14/18 04:20 Potassium 5.3 mEq/L (3.5-5.1) H 08/14/18 04:20 Chloride 108 mEq/L (98-107) H 08/14/18 04:20 Carbon Dioxide 20 mEq/L (23-29) L 08/14/18 04:20 BUN 76 mg/dL (6-20) H 08/14/18 04:20 Creatinine 2.66 mg/dL (0.70-1.30) H 08/14/18 04:20 Est GFR ( Amer) 30 (> 60) L 08/14/18 04:20 Est GFR (Non-Af Amer) 25 (> 60) L 08/14/18 04:20 BUN/Creatinine Ratio 29 (6-26) H 08/14/18 04:20 Glucose 157 mg/dL (70-105) H 08/14/18 04:20 POC Glucose 388 mg/dL (70-99) H 08/13/18 16:32 Calculated Osmolality 306 (280-300) H 08/14/18 04:20 Calcium 7.3 mg/dL (8.6-10.3) L 08/14/18 04:20 Phosphorus 4.9 mg/dL (2.7-4.5) H 08/13/18 04:00 Alkaline Phosphatase 255 Units/L (34-104) H 08/12/18 12:38 Troponin I 0.05 ng/mL (< 0.04) H* 08/12/18 12:38 Serum Total Protein 4.1 g/dL (6.4-8.9) L 08/12/18 12:38 Albumin 2.2 g/dL (3.5-5.7) L 08/12/18 12:38 Globulin 1.9 g/dL (2.4-3.5) L 08/12/18 12:38 Urine Clarity Cloudy (Clear) A 08/12/18 14:28 Urine Protein 100 mg/dL (Neg-Trace) H 08/12/18 14:28 Urine Glucose (UA) 100 mg/dL (Normal) H 08/12/18 14:28 Ur Leukocyte Esterase Trace (Negative) H 08/12/18 14:28 Ur Squamous Epith Cells Many per lpf (None-Few) H 08/12/18 14:28 Ur Culture Indicated? NO. (NO) A 08/12/18 14:28 Stool Occult Bld Scrn Positive (Negative) A 08/12/18 16:06 General appearance: Present: cooperative, no acute distress - Head Head exam: Present: atraumatic, normal inspection - Eye Eye exam: Present: EOMI, normal appearance, PERRL, conjuntiva pink. Absent: periorbital swelling, periorbital tenderness Pupils: Present: normal accommodation - ENT ENT exam: Present: mucous membranes dry, normal external ear exam - Neck Neck exam: Present: full ROM, normal inspection - Respiratory Respiratory exam: Present: CTAB. Absent: accessory muscle use, respiratory distress - Cardiovascular Cardiovascular exam: Present: +S1, +S2 - GI/Abdominal GI/Abdominal exam: Present: hyperactive bowel sounds, soft. Absent: tenderness - Rectal Rectal exam: Present: normal inspection. Absent: tenderness - exam: Present: normal inspection, testicular veritical lie. Absent: scrotal swelling - Extremities Exam Extremities exam: Present: full ROM, normal inspection. Absent: pedal edema - Back Exam Back exam: Present: full ROM, normal inspection. Absent: tenderness - Neurological Exam Neurological exam: Present: alert, oriented X3, strengths equal and symetr throughout. Absent: altered - Psychiatric Psychiatric exam: Present: normal affect, normal mood - Skin Skin exam: Present: dry, intact, normal color, warm Palliative Quality Palliative Quality: Screen for Code Status: Yes, Screen for Goals of Care: Yes, Screen for Pain: Yes, If Pain Regimen Started, Initiate Bowel Regimen: NA ( Frequent loos stools.), Screen for Nausea/Vomitting: Yes Code Status: 08/12/18 19:21 DNR [Resuscitation Status: Active] [RES] Routine Comment: Resuscitation Status: DNR-Comfort Care 08/13/18 13:47 CODE [Resuscitation Status: Active] [RES] Routine Comment: Resuscitation Status: [id number] - Labs CBC & Chem 7: 08/14/18 04:20 08/14/18 04:20 Labs: Laboratory Results - last 24 hr 08/12/18 08/13/18 08/13/18 19:31 06:13 11:04 WBC RBC Hgb Hct MCV MCH MCHC RDW Plt Count MPV Immature Gran % Seg Neutrophils % Lymphocytes % Monocytes % Eosinophils % Basophils % Neutrophils # Lymphocytes # Monocytes # Eosinophils # Basophils # Immature Plt Fraction Sodium Potassium Chloride Carbon Dioxide BUN Creatinine Est GFR ( Amer) Est GFR (Non-Af Amer) BUN/Creatinine Ratio Glucose POC Glucose 121 H 269 H 318 H Calculated Osmolality Calcium 08/13/18 08/13/18 08/14/18 16:32 22:46 04:20 WBC 5.4 RBC 3.01 L Hgb 9.8 L 9.1 L Hct 30.0 L 27.8 L MCV 92.4 MCH 30.2 MCHC 32.7 RDW 16.4 H Plt Count 72 L MPV 9.0 L Immature Gran % 0.9 Seg Neutrophils % 86.1 Lymphocytes % 7.1 Monocytes % 2.2 Eosinophils % 3.7 Basophils % 0.0 Neutrophils # 4.7 Lymphocytes # 0.4 L Monocytes # 0.1 Eosinophils # 0.2 Basophils # 0.0 Immature Plt Fraction 1.0 L Sodium Potassium Chloride Carbon Dioxide BUN Creatinine Est GFR ( Amer) Est GFR (Non-Af Amer) BUN/Creatinine Ratio Glucose POC Glucose 388 H Calculated Osmolality Calcium 08/14/18 04:20 WBC RBC Hgb Hct MCV MCH MCHC RDW Plt Count MPV Immature Gran % Seg Neutrophils % Lymphocytes % Monocytes % Eosinophils % Basophils % Neutrophils # Lymphocytes # Monocytes # Eosinophils # Basophils # Immature Plt Fraction Sodium 135 L Potassium 5.3 H Chloride 108 H Carbon Dioxide 20 L BUN 76 H Creatinine 2.66 H Est GFR ( Amer) 30 L Est GFR (Non-Af Amer) 25 L BUN/Creatinine Ratio 29 H Glucose 157 H POC Glucose Calculated Osmolality 306 H Calcium 7.3 L - ABG Interpretation ABG results: PT/INR, D-dimer PT 10.8 Seconds (9.4-12.1) 08/12/18 12:38 Consult Discharge Plan - Plan Referrals: [facility],PCP [Primary Care Provider] -
--- NOTE | 2018-08-14 11:53 | Internal Med Progress Note ---
Hospitalist Progress Note - Encounter Date of Encounter: 08/14/18 Time of Encounter: 11:53 - Subjective Interval History: 57 M with medical history of malignant melanoma being managed via [facility]. Patient has had multiple recurrent inpatient hospitalizations. Additionally has a medical history of right lower extremity DVT. He is admitted and being managed for severe sepsis, HCAP, acute blood loss anemia due to suspected acute GI bleed, acute kidney injury and generalized weakness. He is a resident of a retirement facility. He is seen at the bedside , is not present during evaluation today He is s/p EGD/Colonoscopy 08/13 with with no obvious source of bleeding He remains febrile, with Tmax on arrival at 103 and most recent fever episode 100.7 this a.m His Hb is now stable, s/p 3 units RBCs Renal function is not improving , at this time, will restart IVF hydration - Exam Vitals: Temp Pulse Resp BP Pulse Ox 99.5 F 81 18 106/62 96 08/14/18 06:55 08/14/18 06:55 08/14/18 06:55 08/14/18 06:55 08/14/18 06:55 Exam: Gen: Sitting in bed, in no form of distress HEENT: Moist oral mucosa, not cyanotic Chest: Bilateral lung bases thonchi L>R CVS: HR and BP WNL, S1, S2 only, no m/g/r Abdomen: Flat, soft, not tender, no palpably enlarged organs Extremities: Bilateral pitting pedal edema, R> L , diffuse erythema and bruising on RLE up to the groin, minimal affectation of LLE for same. Bilateral dwyer excoriations. LUE bruising and subcut bleeding ++ neuro: Awake, alert and oriented X3, no focal deficits - Assessment and Plan (1) DVT (deep venous thrombosis) Current Visit: Yes Status: Acute Assessment and Plan: Patient reports being diagnosed with a DVT while hospitalized in [place]. He was initially on anticoagulation; however, this was discontinued due to anemia. I am not sure the patient is a good candidate for surgery, however, discussed with Dr. Wood vascular surgery for possible IVC filter placement- procedure planned for Thursday 08/16 Will keep NPO from 10/6 MN (2) DVT prophylaxis Current Visit: Yes Status: Acute Assessment and Plan: No medical DVT prophylaxis due to GIB and anemia No SCDs due to risk of PE. (3) Sepsis Current Visit: Yes Status: Acute Assessment and Plan: Patient presented with fever, tachycardia, HR >[address] findings of HCAP Tmax is 103 His last fever episode was this a.m 08/14 at 0409 He has MARJAN and this is not currently improving Legionella and strep Ag negative Blood culture negative till date Continue Vanc, Zosyn and Levaquin-day 3, pharmacy to dose Follow final cultures Send sputum culture, cough is productive Patient is immunosuppressed from CA and hx of immunotherapy (4) Hyperkalemia Current Visit: Yes Status: Acute Assessment and Plan: Due to MARJAN Presented with K 5.4, improved to 5.1, ow back to 5.4 GIve kayexalate Continue IVF Repeat potassium scheduled for 1500 Continue telemetry (5) HCAP (healthcare-associated pneumonia) Current Visit: Yes Status: Acute Assessment and Plan: mgt as in sepsis Continue O2 as needed (6) Acute GI bleeding Current Visit: Yes Status: Suspected Assessment and Plan: Suspected Likely ruled out At the time of admission, patient had hemoglobin of 6.9 and a positive stool occult test. He received 2 units of blood, with improvement in hemoglobin to 8.6. He underwent EGD and colonoscopy 08/14, neither of which revealed evidence of active bleeding. Patient is currently being monitored with Hgb/Hct Q8H. Plan for continued monitoring per GI recommendations. (7) Acute blood loss anemia Current Visit: Yes Status: Acute Assessment and Plan: likely 2/2 to acute upper GI bleed also consider subcut hematoma, no obvious signs, but patient has extensive LUE and RLE bruising Hemoglobin was 6.9 with positive hemooccult. s/p 2 units RBCs HB stable EGD/Colonoscopy with no obvious source of bleeding (8) Acute kidney injury Current Visit: Yes Status: Acute Assessment and Plan: Elevated BUN and Cr Continue IV fluids and monitor creatinine Avoid nephrotoxins Strict I and Os Will consult nephrology if not improving (9) Lung cancer Current Visit: Yes Status: Chronic Assessment and Plan: On immunotherapy, outpatient follow up (10) Acute respiratory failure with hypoxia Current Visit: Yes Status: Acute Assessment and Plan: Likely 2/2 to HCAp/ multifocal pneumonia. 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 Continue steroids, increase dose of steroids due to continuous critical illness - Time Spent with Patient Total time spent is greater than 50% in coordination of care (as documented) at patient's floor/unit and/or counseling patient: Plan of Care Discussed with: patient Internal Medicine: Result - Labs CBC & Chem 7: 08/14/18 04:20 08/14/18 04:20 Labs: Short CBC 08/13/18 08/14/18 Range/Units 22:46 04:20 WBC 5.4 (4.3-11.1) K/mcL Hgb 9.8 L 9.1 L (12.9-16.9) g/dL Hct 30.0 L 27.8 L (37.5-50.1) % Plt Count 72 L (140-400) K/mcL Neutrophils # 4.7 (1.6-8.9) K/mcL BMP 08/14/18 04:20 Sodium 135 L Potassium 5.3 H Chloride 108 H Carbon Dioxide 20 L BUN 76 H Creatinine 2.66 H Glucose 157 H Calcium 7.3 L - ABG Interpretation ABG results: PT/INR, D-dimer PT 10.8 Seconds (9.4-12.1) 08/12/18 12:38 Consult Discharge Plan - Plan [facility]errals: [facility] [Primary Care Provider] - (1) DVT (deep venous thrombosis) Qualifiers: DVT location: lower extremity Affected thrombotic vein of extremity: unspecified lower extremity proximal vein Chronicity: acute Laterality: unspecified laterality Qualified Code(s): I82.4Y9 - Acute embolism and thrombosis of unspecified deep veins of unspecified proximal lower extremity (3) Sepsis Qualifiers: Sepsis type: sepsis due to unspecified organism Qualified Code(s): A41.9 - Sepsis, unspecified organism (9) Lung cancer Qualifiers: Laterality: unspecified laterality Lung location: unspecified part of lung Qualified Code(s): C34.90 - Malignant neoplasm of unspecified part of unspecified bronchus or lung
[2018-08-14] MEDS: predniSONE 20 MG TABLET PO ONE ×2 (14:20→16:14)
[2018-08-14] MEDS ORDERED: Levofloxacin 750 MG/150 ML 750 MG/150 ML BAG IVPB SCH (16:00)
[2018-08-14 17:42] LABS: Eosinophils % 0.2 %; Hematocrit 28.1 % (37.5-50.1); Immature Granulocytes % 0.5 % (0-4); Lymphocytes # 0.3 K/mcL (0.6-4.6); Lymphocytes % 8.3 %; Mean Corpuscular Hemoglobin 30.2 pg (28.0-33.3); Mean Corpuscular Volume 94.3 fL (83.0-100.0); Mean Platelet Volume 8.7 fL (9.4-12.4); Neutrophils # 3.7 K/mcL (1.6-8.9); Red Blood Count 2.98 M/mcL (4.19-5.50); Red Cell Distribution Width 16.9 % (11.5-14.5)
[2018-08-14 17:43] LABS: Platelet Count 61 K/mcL (140-400)
[2018-08-15] MEDS: Piperacillin/Tazobactam 3.375 GM in 0.9 % Sodium Chloride Mini Bag 100 ML IVPB SCH ×3 (00:29→18:01)
[2018-08-15 04:57] LABS: Immature Granulocytes % 0.8 % (0-4)
[2018-08-15 04:59] LABS: Hematocrit 27.3 % (37.5-50.1); Immature Platelets 1.1 % (1.1-6.1); Lymphocytes # 0.3 K/mcL (0.6-4.6); Lymphocytes % 7.9 %; Mean Corpuscular Hemoglobin 30.4 pg (28.0-33.3); Mean Corpuscular Volume 92.2 fL (83.0-100.0); Mean Platelet Volume 9.1 fL (9.4-12.4); Neutrophils # 3.5 K/mcL (1.6-8.9); Red Blood Count 2.96 M/mcL (4.19-5.50); Red Cell Distribution Width 16.5 % (11.5-14.5); Segmented Neutrophils % 90.3 %
[2018-08-15 05:01] LABS: Platelet Count 58 K/mcL (140-400)
[2018-08-15 05:20] LABS: Calcium 6.9 mg/dL (8.6-10.3); Potassium 4.5 mEq/L (3.5-5.1)
[2018-08-15] MEDS: predniSONE 20 MG TABLET PO SCH (09:10)
[2018-08-15] MEDS: amLODIPine 5 MG TABLET PO SCH (09:11)
[2018-08-15] MEDS: Gabapentin 100 MG CAPSULE PO SCH ×2 (09:11→20:53)
[2018-08-15] MEDS: Multivit/Ca/Min/Fe/FA 1 TAB TABLET PO SCH (09:11)
[2018-08-15] MEDS: Insulin LISPRO 300 UNITS/3 ML VIAL SQ SCH ×7 (09:12→20:54)
[2018-08-15] MEDS: Insulin DETEMIR 100 UNIT/ML X5UNITS SQ SCH (09:19)
--- NOTE | 2018-08-15 09:59 | Internal Med Progress Note ---
Hospitalist Progress Note - Encounter Date of Encounter: 08/15/18 Time of Encounter: 09:58 - Subjective Interval History: 57 M with medical history of malignant melanoma being managed via [facility]. Patient has had multiple recurrent inpatient hospitalizations. Additionally has a medical history of right lower extremity DVT. He is admitted and being managed for severe sepsis, HCAP, acute blood loss anemia due to suspected acute GI bleed, acute kidney injury and generalized weakness. He is a resident of a long-term facility. He is seen at the bedside , is not present during evaluation today He is s/p EGD/Colonoscopy 08/13 with with no obvious source of bleeding He has been afebrile, no more fever since 08/14 a.m He is awake, alert, and clinically looks improved His Hb remains stable, s/p 3 units RBCs Renal function is very slowly improving, patient's urine output is not being monitored, patient states his has been emptying his urinal he is scheduled for IVC placement a.m - Exam Vitals: Temp Pulse Resp BP Pulse Ox 97.7 F 82 18 170/89 99 08/15/18 08:57 08/15/18 08:57 08/15/18 08:57 08/15/18 08:57 08/15/18 08:57 Exam: Gen: Sitting in bed, in no form of distress HEENT: Moist oral mucosa, not cyanotic Chest: Bilateral lung bases rhonchi L>R, improved air entry bilaterally compared to exam findings on 08/14 CVS: HR and BP WNL, S1, S2 only, no m/g/r Abdomen: Flat, soft, not tender, no palpably enlarged organs Extremities: Bilateral pitting pedal edema, R> L , diffuse erythema and bruising on RLE up to the groin, minimal affectation of LLE for same. Bilateral dwyer excoriations. LUE bruising and subcut bleeding ++, unchanged from prior exam 08/14 neuro: Awake, alert and oriented X3, no focal deficits - Assessment and Plan (1) DVT (deep venous thrombosis) Current Visit: Yes Status: Acute Assessment and Plan: Patient reports being diagnosed with a DVT while hospitalized in [place]. He was initially on anticoagulation; however, this was discontinued due to anemia. discussed with Dr. Wood vascular surgery for possible IVC filter placement- procedure planned for Thursday 08/16 Will keep NPO from 10/6 MN (2) DVT prophylaxis Current Visit: Yes Status: Acute Assessment and Plan: No medical DVT prophylaxis due to GIB and anemia No SCDs due to risk of PE. (3) Sepsis Current Visit: Yes Status: Acute Assessment and Plan: Patient presented with fever, tachycardia, HR >[address] findings of HCAP Tmax is 103 His last fever episode was 08/14 at 0409 He has MARJAN and this is now slowly improving Legionella and strep Ag negative Blood culture negative till date Continue Vanc, Zosyn and Levaquin-day 4, pharmacy to dose Follow final cultures Send sputum culture, cough is productive Patient is immunosuppressed from CA and hx of immunotherapy (4) Hyperkalemia Current Visit: Yes Status: Resolved Assessment and Plan: Improved Due to MARJAN Continue to monitor Chem Continue telemetry (5) HCAP (healthcare-associated pneumonia) Current Visit: Yes Status: Acute Assessment and Plan: mgt as in sepsis Continue O2 as needed (6) Acute GI bleeding Current Visit: Yes Status: Suspected Assessment and Plan: Suspected Likely ruled out At the time of admission, patient had hemoglobin of 6.9 and a positive stool occult test. He received 2 units of blood, with improvement in hemoglobin to 8.6. He underwent EGD and colonoscopy 08/14, neither of which revealed evidence of active bleeding. Patient is currently being monitored with Hgb/Hct daily and Hb has been stable for the past 24 hrs Plan for continued monitoring per GI recommendations. (7) Acute blood loss anemia Current Visit: Yes Status: Acute Assessment and Plan: likely 2/2 to acute upper GI bleed also consider subcut hematoma, no obvious compartment syndrome signs, but patient has extensive LUE and RLE bruising Hemoglobin was 6.9 with positive hemooccult. s/p 2 units RBCs HB stable EGD/Colonoscopy with no obvious source of bleeding (8) Acute kidney injury Current Visit: Yes Status: Acute Assessment and Plan: Elevated BUN and Cr Continue IV fluids and monitor creatinine Avoid nephrotoxins Strict I and Os Will consult nephrology if not improving (9) Lung cancer Current Visit: Yes Status: Chronic Assessment and Plan: On immunotherapy, outpatient follow up (10) Acute respiratory failure with hypoxia Current Visit: Yes Status: Acute Assessment and Plan: Likely 2/2 to HCAp/ multifocal pneumonia. 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 Continue steroids, increase dose of steroids due to continuous critical illness - Time Spent with Patient Total time spent is greater than 50% in coordination of care (as documented) at patient's floor/unit and/or counseling patient: Plan of Care Discussed with: patient Internal Medicine: Result - Labs CBC & Chem 7: 08/15/18 04:00 08/15/18 04:00 Labs: Short CBC 08/14/18 08/15/18 Range/Units 16:00 04:00 WBC 4.1 L 3.9 L (4.3-11.1) K/mcL Hgb 9.0 L 9.0 L (12.9-16.9) g/dL Hct 28.1 L 27.3 L (37.5-50.1) % Plt Count 61 L 58 L (140-400) K/mcL Neutrophils # 3.7 3.5 (1.6-8.9) K/mcL BMP 08/14/18 08/15/18 15:00 04:00 Sodium 136 Potassium 4.7 4.5 Chloride 109 H Carbon Dioxide 20 L BUN 71 H Creatinine 2.60 H Glucose 275 H Calcium 6.9 L - ABG Interpretation ABG results: PT/INR, D-dimer PT 10.8 Seconds (9.4-12.1) 08/12/18 12:38 Consult Discharge Plan - Plan [facility]errals: [facility] [Primary Care Provider] - (1) DVT (deep venous thrombosis) Qualifiers: DVT location: lower extremity Affected thrombotic vein of extremity: unspecified lower extremity proximal vein Chronicity: acute Laterality: unspecified laterality Qualified Code(s): I82.4Y9 - Acute embolism and thrombosis of unspecified deep veins of unspecified proximal lower extremity (3) Sepsis Qualifiers: Sepsis type: sepsis due to unspecified organism Qualified Code(s): A41.9 - Sepsis, unspecified organism (9) Lung cancer Qualifiers: Laterality: unspecified laterality Lung location: unspecified part of lung Qualified Code(s): C34.90 - Malignant neoplasm of unspecified part of unspecified bronchus or lung
--- NOTE | 2018-08-15 10:22 | Palliative Progress Note ---
Date of Encounter: 08/15/18 Time of Encounter: 09:20 - Assessment and plan (1) Frequent loose stools Current Visit: Yes Status: Acute Assessment and plan: Patient reports decreased in frequency of bowel movements over the last 24 hours. Received 1 dose imodium; continue PRN. Qualifiers: Diarrhea type: unspecified type Qualified Code(s): R19.7 - Diarrhea, unspecified (2) DVT (deep venous thrombosis) Current Visit: Yes Status: Acute Assessment and plan: Patient planning for IVC filter placement tomorrow. Qualifiers: DVT location: lower extremity Affected thrombotic vein of extremity: unspecified lower extremity proximal vein Chronicity: acute Laterality: unspecified laterality Qualified Code(s): I82.4Y9 - Acute embolism and thrombosis of unspecified deep veins of unspecified proximal lower extremity (3) History of malignant melanoma Current Visit: No Status: Acute Assessment and plan: Patient reports he is under the care of Oncologist through [facility]. Desires to return to Oncologist at discharge for follow up. (4) HCAP (healthcare-associated pneumonia) Current Visit: Yes Status: Acute Assessment and plan: Patient receiving IV antibiotics per primary team. (5) Acute GI bleeding Current Visit: Yes Status: Suspected Assessment and plan: Hemoglobin stable today at 9.0. Platelets noted to be decreasing since admission , from 92 to 58. (6) Acute kidney injury Current Visit: Yes Status: Acute (7) Goals of care, counseling/discussion Current Visit: Yes Status: Acute Assessment and plan: Spoke with patient regarding goals of care. Discussed requirements for assistance at discharge as patient has been bedbound for a few days without PT/ OT. Expressed desire for PT/OT while inpatient to see how much he will be able to do for himself at discharge. Patient reports family intends to care for him ATC, expressed concern if patient requires more than 1 person for assistance could be difficult to get the level of care he needs at home; verbalized understanding. Once medically stable post IVC filter, will order PT/OT consult. - Time Spent With Patient Total time spent is greater than 50% in coordination of care (as documented) at patient's floor/unit and/or counseling patient: - Subjective Interval history: Patient lying in bed upon arrival for assessment. Alert and oriented times 3; no family present at bedside. Patient denies pain, anxiety, dyspnea, nausea, and vomiting. Reports reduction in frequency of loose stools; has received 1 dose of Imodium. Patient discussed plan for IVC filter tomorrow and identified need to NPO after midnight tonight. Temperature control improved, afebrile. - Constitutional Vitals: Abnormal lab results WBC 3.9 K/mcL (4.3-11.1) L 08/15/18 04:00 RBC 2.96 M/mcL (4.19-5.50) L 08/15/18 04:00 Hgb 9.0 g/dL (12.9-16.9) L 08/15/18 04:00 Hct 27.3 % (37.5-50.1) L 08/15/18 04:00 RDW 16.5 % (11.5-14.5) H 08/15/18 04:00 Plt Count 58 K/mcL (140-400) L 08/15/18 04:00 MPV 9.1 fL (9.4-12.4) L 08/15/18 04:00 Lymphocytes # 0.3 K/mcL (0.6-4.6) L 08/15/18 04:00 Chloride 109 mEq/L (98-107) H 08/15/18 04:00 Carbon Dioxide 20 mEq/L (23-29) L 08/15/18 04:00 BUN 71 mg/dL (6-20) H 08/15/18 04:00 Creatinine 2.60 mg/dL (0.70-1.30) H 08/15/18 04:00 Est GFR ( Amer) 31 (> 60) L 08/15/18 04:00 Est GFR (Non-Af Amer) 25 (> 60) L 08/15/18 04:00 BUN/Creatinine Ratio 27 (6-26) H 08/15/18 04:00 Glucose 275 mg/dL (70-105) H 08/15/18 04:00 Calculated Osmolality 313 (280-300) H 08/15/18 04:00 Calcium 6.9 mg/dL (8.6-10.3) L 08/15/18 04:00 Phosphorus 4.9 mg/dL (2.7-4.5) H 08/13/18 04:00 Alkaline Phosphatase 255 Units/L (34-104) H 08/12/18 12:38 Troponin I 0.05 ng/mL (< 0.04) H* 08/12/18 12:38 Serum Total Protein 4.1 g/dL (6.4-8.9) L 08/12/18 12:38 Albumin 2.2 g/dL (3.5-5.7) L 08/12/18 12:38 Globulin 1.9 g/dL (2.4-3.5) L 08/12/18 12:38 Urine Clarity Cloudy (Clear) A 08/12/18 14:28 Urine Protein 100 mg/dL (Neg-Trace) H 08/12/18 14:28 Urine Glucose (UA) 100 mg/dL (Normal) H 08/12/18 14:28 Ur Leukocyte Esterase Trace (Negative) H 08/12/18 14:28 Ur Squamous Epith Cells Many per lpf (None-Few) H 08/12/18 14:28 Ur Culture Indicated? NO. (NO) A 08/12/18 14:28 Stool Occult Bld Scrn Positive (Negative) A 08/12/18 16:06 General appearance: Present: cooperative, no acute distress - Head Head exam: Present: atraumatic, normal inspection - Eye Eye exam: Present: EOMI, normal appearance, PERRL Pupils: Present: normal accommodation - ENT ENT exam: Present: mucous membranes moist, normal external ear exam - Neck Neck exam: Present: full ROM, normal inspection - Respiratory Respiratory exam: Present: wheezes. Absent: accessory muscle use - Cardiovascular Cardiovascular exam: Present: irregular rhythm, +S1, +S2 - GI/Abdominal GI/Abdominal exam: Present: normal bowel sounds, soft. Absent: tenderness - Rectal Rectal exam: Present: deferred - Extremities Exam Extremities exam: Present: full ROM, normal inspection (reports some neuropathic pain; unable to rate as it is always there.). Absent: pedal edema - Back Exam Back exam: Present: full ROM, normal inspection (patient performing leg exercises in bed.) - Neurological Exam Neurological exam: Present: alert, oriented X3. Absent: altered - Psychiatric Psychiatric exam: Present: normal affect, normal mood - Skin Skin exam: Present: dry, intact, warm Palliative Quality Palliative Quality: Screen for Code Status: Yes, Screen for Goals of Care: Yes, Screen for Pain: Yes, If Pain Regimen Started, Initiate Bowel Regimen: NA ( Frequent loos stools.), Screen for Nausea/Vomitting: Yes Code Status: 08/12/18 19:21 DNR [Resuscitation Status: Active] [RES] Routine Comment: Resuscitation Status: DNR-Comfort Care 08/13/18 13:47 CODE [Resuscitation Status: Active] [RES] Routine Comment: Resuscitation Status: [id number] - Labs CBC & Chem 7: 08/15/18 04:00 08/15/18 04:00 Labs: Laboratory Results - last 24 hr 08/13/18 08/14/18 08/14/18 21:20 07:03 11:54 WBC RBC Hgb Hct MCV MCH MCHC RDW Plt Count MPV Immature Gran % Seg Neutrophils % Lymphocytes % Monocytes % Eosinophils % Basophils % Neutrophils # Lymphocytes # Monocytes # Eosinophils # Basophils # Immature Plt Fraction Sodium Potassium Chloride Carbon Dioxide BUN Creatinine Est GFR ( Amer) Est GFR (Non-Af Amer) BUN/Creatinine Ratio Glucose POC Glucose 317 H 239 H 190 H Calculated Osmolality Calcium 08/14/18 08/14/18 08/14/18 15:00 16:00 16:22 WBC 4.1 L RBC 2.98 L Hgb 9.0 L Hct 28.1 L MCV 94.3 MCH 30.2 MCHC 32.0 RDW 16.9 H Plt Count 61 L MPV 8.7 L Immature Gran % 0.5 Seg Neutrophils % 90.0 Lymphocytes % 8.3 Monocytes % 1.0 Eosinophils % 0.2 Basophils % 0.0 Neutrophils # 3.7 Lymphocytes # 0.3 L Monocytes # 0.0 Eosinophils # 0.0 Basophils # 0.0 Immature Plt Fraction Sodium Potassium 4.7 Chloride Carbon Dioxide BUN Creatinine Est GFR ( Amer) Est GFR (Non-Af Amer) BUN/Creatinine Ratio Glucose POC Glucose 96 Calculated Osmolality Calcium 08/15/18 08/15/18 04:00 04:00 WBC 3.9 L RBC 2.96 L Hgb 9.0 L Hct 27.3 L MCV 92.2 MCH 30.4 MCHC 33.0 RDW 16.5 H Plt Count 58 L MPV 9.1 L Immature Gran % 0.8 Seg Neutrophils % 90.3 Lymphocytes % 7.9 Monocytes % 1.0 Eosinophils % 0.0 Basophils % 0.0 Neutrophils # 3.5 Lymphocytes # 0.3 L Monocytes # 0.0 Eosinophils # 0.0 Basophils # 0.0 Immature Plt Fraction 1.1 Sodium 136 Potassium 4.5 Chloride 109 H Carbon Dioxide 20 L BUN 71 H Creatinine 2.60 H Est GFR ( Amer) 31 L Est GFR (Non-Af Amer) 25 L BUN/Creatinine Ratio 27 H Glucose 275 H POC Glucose Calculated Osmolality 313 H Calcium 6.9 L - ABG Interpretation ABG results: PT/INR, D-dimer PT 10.8 Seconds (9.4-12.1) 08/12/18 12:38 Consult Discharge Plan - Plan Referrals: [facility] [Primary Care Provider] -
[2018-08-15] MEDS: 0.9 % Sodium Chloride 1,000 ML IVC SCH (12:32)
[2018-08-15] MEDS: hydrALAZINE 25 MG TABLET PO SCH ×2 (12:38→18:05)
[2018-08-15] MEDS ORDERED: Ipratropium/Albuterol Neb 3 ML IH PRN (16:24)
[2018-08-15] MEDS: Melatonin 3 MG TABLET PO PRN (20:53)
[2018-08-16] MEDS: Piperacillin/Tazobactam 3.375 GM in 0.9 % Sodium Chloride Mini Bag 100 ML IVPB SCH ×3 (01:16→17:09)
[2018-08-16] MEDS: hydrALAZINE 25 MG TABLET PO SCH ×5 (01:16→22:21)
[2018-08-16 04:20] LABS: Lymphocytes % 6.7 %; Red Cell Distribution Width 16.1 % (11.5-14.5)
[2018-08-16 04:21] LABS: VBG Ionized Calcium 1.08 mmol/L (1.15-1.35)
[2018-08-16 04:22] LABS: Hematocrit 26.2 % (37.5-50.1); Hemoglobin 8.6 g/dL (12.9-16.9); Immature Granulocytes % 0.6 % (0-4); Immature Platelets 1.3 % (1.1-6.1); Lymphocytes # 0.4 K/mcL (0.6-4.6); Mean Corpuscular HGB Conc 32.8 g/dL (31.6-35.5); Mean Corpuscular Volume 91.3 fL (83.0-100.0); Mean Platelet Volume 8.8 fL (9.4-12.4); Monocytes # 0.1 K/mcL (0.0-1.3); Monocytes % 2.1 %; Neutrophils # 4.7 K/mcL (1.6-8.9); Red Blood Count 2.87 M/mcL (4.19-5.50); Segmented Neutrophils % 90.6 %
[2018-08-16 04:23] LABS: Platelet Count 59 K/mcL (140-400)
[2018-08-16 04:41] LABS: Calcium 6.9 mg/dL (8.6-10.3)
[2018-08-16] MEDS ORDERED: Calcium Gluconate 2,000 MG in 0.9 % Sodium Chloride 100 ML IVPB ONE (07:46)
[2018-08-16] MEDS: amLODIPine 5 MG TABLET PO SCH (08:48)
[2018-08-16] MEDS: Gabapentin 100 MG CAPSULE PO SCH ×2 (08:48→22:21)
[2018-08-16] MEDS: Multivit/Ca/Min/Fe/FA 1 TAB TABLET PO SCH (08:48)
[2018-08-16] MEDS: predniSONE 20 MG TABLET PO SCH (08:48)
[2018-08-16] MEDS: 0.9 % Sodium Chloride 1,000 ML IVC SCH ×2 (08:49→08:50)
[2018-08-16] MEDS: Insulin LISPRO 300 UNITS/3 ML VIAL SQ SCH ×7 (08:49→22:21)
[2018-08-16] MEDS: Insulin DETEMIR 100 UNIT/ML X5UNITS SQ SCH (08:52)
--- NOTE | 2018-08-16 09:26 | Internal Med Progress Note ---
Hospitalist Progress Note - Encounter Date of Encounter: 08/16/18 Time of Encounter: 09:24 - Subjective Interval History: 57 M with medical history of malignant melanoma being managed via [facility]. Patient has had multiple recurrent inpatient hospitalizations. Additionally has a medical history of right lower extremity DVT. He is admitted and being managed for severe sepsis, HCAP, acute blood loss anemia due to suspected acute GI bleed, acute kidney injury and generalized weakness. He is a resident of a [facility] facility. He is s/p EGD/Colonoscopy 08/13 with with no obvious source of bleeding He has been afebrile, no more fever since 08/14 a.m He is awake, alert, and clinically looks improved Seen with at the bedside this mrn His Hb remains stable, s/p 3 units RBCs he is scheduled for IVC placement today he is otherwise making slow clinical improvement - Exam Vitals: Temp Pulse Resp BP Pulse Ox 97.6 F 77 18 148/76 98 08/16/18 07:36 08/16/18 07:36 08/16/18 07:36 08/16/18 07:36 08/16/18 07:36 Exam: Gen: Sitting in bed, in no form of distress HEENT: Moist oral mucosa, not cyanotic Chest: Bilateral lung bases rhonchi L>R, improved air entry bilaterally compared to exam findings on 08/14 CVS: HR and BP WNL, S1, S2 only, no m/g/r Abdomen: Flat, soft, not tender, no palpably enlarged organs Extremities: Bilateral pitting pedal edema, R> L , diffuse erythema and bruising on RLE up to the groin, minimal affectation of LLE for same. Bilateral dwyer excoriations. LUE bruising and subcut bleeding ++, unchanged from prior exam 08/14. Contractures of 5th digits bilaterally neuro: Awake, alert and oriented X3, no focal deficits - Assessment and Plan (1) DVT (deep venous thrombosis) Current Visit: Yes Status: Acute Assessment and Plan: Patient reports being diagnosed with a DVT while hospitalized in [place]. He was initially on anticoagulation; however, this was discontinued due to anemia. discussed with Dr. Wood vascular surgery IVC filter placement today (2) DVT prophylaxis Current Visit: Yes Status: Acute Assessment and Plan: No medical DVT prophylaxis due to suspected GIB and anemia No SCDs due to risk of PE. (3) Sepsis Current Visit: Yes Status: Acute Assessment and Plan: Patient presented with fever, tachycardia, HR >[address] findings of HCAP Tmax is 103 His last fever episode was 08/14 at 0409 He has MARJAN and this is now slowly improving Legionella and strep Ag negative Blood culture negative till date Has received Vanc, Zosyn and Levaquin-day 5Cultures negative till date Discontinue Vanco today 08/16 Continue Levaquin and Zosyn-Day 5 Patient is not making sputum anymore ans has been afebrile for 48 hrs (4) Hyperkalemia Current Visit: Yes Status: Resolved Assessment and Plan: resolved (5) HCAP (healthcare-associated pneumonia) Current Visit: Yes Status: Acute Assessment and Plan: mgt as in sepsis Continue O2 as needed (6) Acute GI bleeding Current Visit: Yes Status: Suspected Assessment and Plan: Suspected Likely ruled out At the time of admission, patient had hemoglobin of 6.9 and a positive stool occult test. He received 2 units of blood, with improvement in hemoglobin to 8.6. He underwent EGD and colonoscopy 08/14, neither of which revealed evidence of active bleeding. Patient is currently being monitored with Hgb/Hct daily and Hb has been stable for the past 24 hrs Plan for continued monitoring per GI recommendations. (7) Acute blood loss anemia Current Visit: Yes Status: Acute Assessment and Plan: likely 2/2 to acute upper GI bleed also consider subcut hematoma, no obvious compartment syndrome signs, but patient has extensive LUE and RLE bruising Hemoglobin was 6.9 with positive hemooccult. s/p 2 units RBCs HB stable EGD/Colonoscopy with no obvious source of bleeding (8) Acute kidney injury Current Visit: Yes Status: Acute Assessment and Plan: Elevated BUN and Cr Continue IV fluids and monitor creatinine Avoid nephrotoxins Strict I and Os Improving slowly with gentle hydration Continue to monitor (9) Lung cancer Current Visit: Yes Status: Chronic Assessment and Plan: On immunotherapy, outpatient follow up (10) Acute respiratory failure with hypoxia Current Visit: Yes Status: Acute Assessment and Plan: Likely 2/2 to HCAp/ multifocal pneumonia. 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 Continue steroids, increase dose of steroids due to continuous critical illness - Time Spent with Patient Total time spent is greater than 50% in coordination of care (as documented) at patient's floor/unit and/or counseling patient: Plan of Care Discussed with: patient Internal Medicine: Result - Labs CBC & Chem 7: 08/16/18 04:00 08/16/18 04:00 Labs: Short CBC 08/16/18 Range/Units 04:00 WBC 5.2 (4.3-11.1) K/mcL Hgb 8.6 L (12.9-16.9) g/dL Hct 26.2 L (37.5-50.1) % Plt Count 59 L (140-400) K/mcL Neutrophils # 4.7 (1.6-8.9) K/mcL BMP 08/16/18 04:00 Sodium 139 Potassium 4.0 Chloride 110 H Carbon Dioxide 22 L BUN 61 H Creatinine 2.09 H Glucose 274 H Calcium 6.9 L - ABG Interpretation ABG results: PT/INR, D-dimer PT 10.8 Seconds (9.4-12.1) 08/12/18 12:38 Consult Discharge Plan - Plan [facility]Primary Care Provider[facility] - (1) DVT (deep venous thrombosis) Qualifiers: DVT location: lower extremity Affected thrombotic vein of extremity: unspecified lower extremity proximal vein Chronicity: acute Laterality: unspecified laterality Qualified Code(s): I82.4Y9 - Acute embolism and thrombosis of unspecified deep veins of unspecified proximal lower extremity (3) Sepsis Qualifiers: Sepsis type: sepsis due to unspecified organism Qualified Code(s): A41.9 - Sepsis, unspecified organism (9) Lung cancer Qualifiers: Laterality: unspecified laterality Lung location: unspecified part of lung Qualified Code(s): C34.90 - Malignant neoplasm of unspecified part of unspecified bronchus or lung
--- NOTE | 2018-08-16 11:23 | Palliative Progress Note ---
<Aylin Laird N - Last Filed: 08/16/18 15:41> Date of Encounter: 08/16/18 Time of Encounter: 11:23 - Assessment and plan (1) Goals of care, counseling/discussion Current Visit: Yes Status: Acute Assessment and plan: Patient is scheduled to have IVC filter placed this afternoon. He and his appear hopeful that he will be able to return home soon afterward. Continue to plan for home health services for physical and occupational therapy needs. Plan for PT/OT assessment post-operatively to determine what home services may be needed. (2) DVT (deep venous thrombosis) Current Visit: Yes Status: Acute Assessment and plan: Patient is scheduled to have IVC filter placed this afternoon. He is not on anticoagulation due to recent GI bleed. Will continue to monitor in cooperation with primary and vascular surgery teams. Qualifiers: DVT location: lower extremity Affected thrombotic vein of extremity: unspecified lower extremity proximal vein Chronicity: acute Laterality: unspecified laterality Qualified Code(s): I82.4Y9 - Acute embolism and thrombosis of unspecified deep veins of unspecified proximal lower extremity (3) HCAP (healthcare-associated pneumonia) Current Visit: Yes Status: Acute Assessment and plan: Mr. Catherine is currently on antimicrobial therapy with levofloxacin. He denies any continued cough or sputum production. He does have good breath sounds bilaterally. Will continue therapy with levofloxacin per primary team. (4) MARJAN (acute kidney injury) Current Visit: No Status: Acute Assessment and plan: Patient's creatinine is improving, at 2.09 this morning. He continues to have good urine output. Will continue close monitoring of renal function and avoidance of nephrotoxic agents. (5) Acute GI bleeding Current Visit: Yes Status: Suspected Assessment and plan: Patient received blood transfusion at the time of admission, with good improvement in hemoglobin and hematocrit. Most recent hemoglobin and hematocrit was 8.6 and 26.2, respectively. Plan to continue monitoring for signs of repeat anemia or recurrent GI bleeding. - Time Spent With Patient Total time spent is greater than 50% in coordination of care (as documented) at patient's floor/unit and/or counseling patient: - Subjective Interval history: Mr. Catherine is lying in bed comfortably on evaluation today. He is currently awaiting placement of IVC filter this afternoon for lower extremity DVT. He denies any acute complaints or concerns today. He reports good urine output. Nursing staff reports no acute overnight events. Patient is eager to have filter placed with hopes of discharge home soon after. - Constitutional Vitals: Abnormal lab results RBC 2.87 M/mcL (4.19-5.50) L 08/16/18 04:00 Hgb 8.6 g/dL (12.9-16.9) L 08/16/18 04:00 Hct 26.2 % (37.5-50.1) L 08/16/18 04:00 RDW 16.1 % (11.5-14.5) H 08/16/18 04:00 Plt Count 59 K/mcL (140-400) L 08/16/18 04:00 MPV 8.8 fL (9.4-12.4) L 08/16/18 04:00 Lymphocytes # 0.4 K/mcL (0.6-4.6) L 08/16/18 04:00 Chloride 110 mEq/L (98-107) H 08/16/18 04:00 Carbon Dioxide 22 mEq/L (23-29) L 08/16/18 04:00 BUN 61 mg/dL (6-20) H 08/16/18 04:00 Creatinine 2.09 mg/dL (0.70-1.30) H 08/16/18 04:00 Est GFR ( Amer) 40 (> 60) L 08/16/18 04:00 Est GFR (Non-Af Amer) 33 (> 60) L 08/16/18 04:00 BUN/Creatinine Ratio 29 (6-26) H 08/16/18 04:00 Glucose 274 mg/dL (70-105) H 08/16/18 04:00 POC Glucose 245 mg/dL (70-99) H 08/15/18 20:30 Calculated Osmolality 315 (280-300) H 08/16/18 04:00 Calcium 6.9 mg/dL (8.6-10.3) L 08/16/18 04:00 Venous Ioniz Calcium 1.08 mmol/L (1.15-1.35) L 08/16/18 04:19 Phosphorus 4.9 mg/dL (2.7-4.5) H 08/13/18 04:00 Alkaline Phosphatase 255 Units/L (34-104) H 08/12/18 12:38 Troponin I 0.05 ng/mL (< 0.04) H* 08/12/18 12:38 Serum Total Protein 4.1 g/dL (6.4-8.9) L 08/12/18 12:38 Albumin 2.2 g/dL (3.5-5.7) L 08/12/18 12:38 Globulin 1.9 g/dL (2.4-3.5) L 08/12/18 12:38 Urine Clarity Cloudy (Clear) A 08/12/18 14:28 Urine Protein 100 mg/dL (Neg-Trace) H 08/12/18 14:28 Urine Glucose (UA) 100 mg/dL (Normal) H 08/12/18 14:28 Ur Leukocyte Esterase Trace (Negative) H 08/12/18 14:28 Ur Squamous Epith Cells Many per lpf (None-Few) H 08/12/18 14:28 Ur Culture Indicated? NO. (NO) A 08/12/18 14:28 Stool Occult Bld Scrn Positive (Negative) A 08/12/18 16:06 Vancomycin Trough 23 mcg/mL (5-10) H 08/15/18 10:29 Exam: GENERAL: Ill-appearing adult male lying in bed. He is awake and answers questions appropriately. He does not appear to be in acute distress. HEENT: Atraumatic and normocephalic. CARDIOVASCULAR: Regular rate and rhythm. S1 and S2 present. No murmurs, rubs, or gallops. RESPIRATORY: CTA bilaterally. No wheezes, rales, or rhonchi noted. ABDOMEN: Soft, nontender, and nondistended. EXTREMITIES: No clubbing or cyanosis. Mild bilateral lower extremity edema present. NEUROLOGIC: A&O x3. Patient moves extremities spontaneously. No apparent focal deficits. Palliative Quality Palliative Quality: Screen for Code Status: Yes, Screen for Goals of Care: Yes, Screen for Pain: Yes, If Pain Regimen Started, Initiate Bowel Regimen: NA ( Frequent loose stools.), Screen for Nausea/Vomitting: Yes Code Status: 08/12/18 19:21 DNR [Resuscitation Status: Active] [RES] Routine Comment: Resuscitation Status: DNR-Comfort Care 08/13/18 13:47 CODE [Resuscitation Status: Active] [RES] Routine Comment: Resuscitation Status: [id number] - Labs CBC & Chem 7: 08/16/18 04:00 08/16/18 04:00 Labs: Laboratory Results - last 24 hr 08/12/18 08/14/18 08/15/18 16:13 20:56 11:41 WBC RBC Hgb Hct MCV MCH MCHC RDW Plt Count MPV Immature Gran % Seg Neutrophils % Lymphocytes % Monocytes % Eosinophils % Basophils % Neutrophils # Lymphocytes # Monocytes # Eosinophils # Basophils # Immature Plt Fraction Sodium Potassium Chloride Carbon Dioxide BUN Creatinine Est GFR ( Amer) Est GFR (Non-Af Amer) BUN/Creatinine Ratio Glucose POC Glucose 164 H 336 H Calculated Osmolality Calcium Venous Ioniz Calcium Crossmatch See Detail 08/15/18 08/15/18 08/16/18 16:47 20:30 04:00 WBC 5.2 RBC 2.87 L Hgb 8.6 L Hct 26.2 L MCV 91.3 MCH 30.0 MCHC 32.8 RDW 16.1 H Plt Count 59 L MPV 8.8 L Immature Gran % 0.6 Seg Neutrophils % 90.6 Lymphocytes % 6.7 Monocytes % 2.1 Eosinophils % 0.0 Basophils % 0.0 Neutrophils # 4.7 Lymphocytes # 0.4 L Monocytes # 0.1 Eosinophils # 0.0 Basophils # 0.0 Immature Plt Fraction 1.3 Sodium Potassium Chloride Carbon Dioxide BUN Creatinine Est GFR ( Amer) Est GFR (Non-Af Amer) BUN/Creatinine Ratio Glucose POC Glucose 211 H 245 H Calculated Osmolality Calcium Venous Ioniz Calcium Crossmatch 08/16/18 08/16/18 04:00 04:19 WBC RBC Hgb Hct MCV MCH MCHC RDW Plt Count MPV Immature Gran % Seg Neutrophils % Lymphocytes % Monocytes % Eosinophils % Basophils % Neutrophils # Lymphocytes # Monocytes # Eosinophils # Basophils # Immature Plt Fraction Sodium 139 Potassium 4.0 Chloride 110 H Carbon Dioxide 22 L BUN 61 H Creatinine 2.09 H Est GFR ( Amer) 40 L Est GFR (Non-Af Amer) 33 L BUN/Creatinine Ratio 29 H Glucose 274 H POC Glucose Calculated Osmolality 315 H Calcium 6.9 L Venous Ioniz Calcium 1.08 L Crossmatch - ABG Interpretation ABG results: PT/INR, D-dimer PT 10.8 Seconds (9.4-12.1) 08/12/18 12:38 Consult Discharge Plan - Plan [facility]errals: [facility]Primary Care Provider[facility] - <AndreyAmbar andre - Last Filed: 08/16/18 16:50> Date of Encounter: 08/16/18 - Time Spent With Patient Total time spent is greater than 50% in coordination of care (as documented) at patient's floor/unit and/or counseling patient: - Constitutional Vitals: Abnormal lab results RBC 2.87 M/mcL (4.19-5.50) L 08/16/18 04:00 Hgb 8.6 g/dL (12.9-16.9) L 08/16/18 04:00 Hct 26.2 % (37.5-50.1) L 08/16/18 04:00 RDW 16.1 % (11.5-14.5) H 08/16/18 04:00 Plt Count 59 K/mcL (140-400) L 08/16/18 04:00 MPV 8.8 fL (9.4-12.4) L 08/16/18 04:00 Lymphocytes # 0.4 K/mcL (0.6-4.6) L 08/16/18 04:00 Chloride 110 mEq/L (98-107) H 08/16/18 04:00 Carbon Dioxide 22 mEq/L (23-29) L 08/16/18 04:00 BUN 61 mg/dL (6-20) H 08/16/18 04:00 Creatinine 2.09 mg/dL (0.70-1.30) H 08/16/18 04:00 Est GFR ( Amer) 40 (> 60) L 08/16/18 04:00 Est GFR (Non-Af Amer) 33 (> 60) L 08/16/18 04:00 BUN/Creatinine Ratio 29 (6-26) H 08/16/18 04:00 Glucose 274 mg/dL (70-105) H 08/16/18 04:00 POC Glucose 245 mg/dL (70-99) H 08/15/18 20:30 Calculated Osmolality 315 (280-300) H 08/16/18 04:00 Calcium 6.9 mg/dL (8.6-10.3) L 08/16/18 04:00 Venous Ioniz Calcium 1.08 mmol/L (1.15-1.35) L 08/16/18 04:19 Phosphorus 4.9 mg/dL (2.7-4.5) H 08/13/18 04:00 Alkaline Phosphatase 255 Units/L (34-104) H 08/12/18 12:38 Troponin I 0.05 ng/mL (< 0.04) H* 08/12/18 12:38 Serum Total Protein 4.1 g/dL (6.4-8.9) L 08/12/18 12:38 Albumin 2.2 g/dL (3.5-5.7) L 08/12/18 12:38 Globulin 1.9 g/dL (2.4-3.5) L 08/12/18 12:38 Urine Clarity Cloudy (Clear) A 08/12/18 14:28 Urine Protein 100 mg/dL (Neg-Trace) H 08/12/18 14:28 Urine Glucose (UA) 100 mg/dL (Normal) H 08/12/18 14:28 Ur Leukocyte Esterase Trace (Negative) H 08/12/18 14:28 Ur Squamous Epith Cells Many per lpf (None-Few) H 08/12/18 14:28 Ur Culture Indicated? NO. (NO) A 08/12/18 14:28 Stool Occult Bld Scrn Positive (Negative) A 08/12/18 16:06 Vancomycin Trough 23 mcg/mL (5-10) H 08/15/18 10:29 - Attending Attestation I was present with resident during history and physical, as well as discussions with pt and family. I agree with assessment and plan as per resident's note. Palliative Quality Palliative Quality: Screen for Code Status: Yes, Screen for Goals of Care: Yes, Screen for Pain: Yes, If Pain Regimen Started, Initiate Bowel Regimen: NA, Screen for Nausea/Vomitting: Yes Code Status: 08/12/18 19:21 DNR [Resuscitation Status: Active] [RES] Routine Comment: Resuscitation Status: DNR-Comfort Care 08/13/18 13:47 CODE [Resuscitation Status: Active] [RES] Routine Comment: Resuscitation Status: [id number] - Labs CBC & Chem 7: 08/16/18 04:00 08/16/18 04:00 Labs: Laboratory Results - last 24 hr 08/12/18 08/14/18 08/15/18 16:13 20:56 11:41 WBC RBC Hgb Hct MCV MCH MCHC RDW Plt Count MPV Immature Gran % Seg Neutrophils % Lymphocytes % Monocytes % Eosinophils % Basophils % Neutrophils # Lymphocytes # Monocytes # Eosinophils # Basophils # Immature Plt Fraction Sodium Potassium Chloride Carbon Dioxide BUN Creatinine Est GFR ( Amer) Est GFR (Non-Af Amer) BUN/Creatinine Ratio Glucose POC Glucose 164 H 336 H Calculated Osmolality Calcium Venous Ioniz Calcium Crossmatch See Detail 08/15/18 08/15/18 08/16/18 16:47 20:30 04:00 WBC 5.2 RBC 2.87 L Hgb 8.6 L Hct 26.2 L MCV 91.3 MCH 30.0 MCHC 32.8 RDW 16.1 H Plt Count 59 L MPV 8.8 L Immature Gran % 0.6 Seg Neutrophils % 90.6 Lymphocytes % 6.7 Monocytes % 2.1 Eosinophils % 0.0 Basophils % 0.0 Neutrophils # 4.7 Lymphocytes # 0.4 L Monocytes # 0.1 Eosinophils # 0.0 Basophils # 0.0 Immature Plt Fraction 1.3 Sodium Potassium Chloride Carbon Dioxide BUN Creatinine Est GFR ( Amer) Est GFR (Non-Af Amer) BUN/Creatinine Ratio Glucose POC Glucose 211 H 245 H Calculated Osmolality Calcium Venous Ioniz Calcium Crossmatch 08/16/18 08/16/18 04:00 04:19 WBC RBC Hgb Hct MCV MCH MCHC RDW Plt Count MPV Immature Gran % Seg Neutrophils % Lymphocytes % Monocytes % Eosinophils % Basophils % Neutrophils # Lymphocytes # Monocytes # Eosinophils # Basophils # Immature Plt Fraction Sodium 139 Potassium 4.0 Chloride 110 H Carbon Dioxide 22 L BUN 61 H Creatinine 2.09 H Est GFR ( Amer) 40 L Est GFR (Non-Af Amer) 33 L BUN/Creatinine Ratio 29 H Glucose 274 H POC Glucose Calculated Osmolality 315 H Calcium 6.9 L Venous Ioniz Calcium 1.08 L Crossmatch - ABG Interpretation ABG results: PT/INR, D-dimer PT 10.8 Seconds (9.4-12.1) 08/12/18 12:38
[2018-08-16] MEDS ORDERED: Aminoglycoside Consult 1 EACH MC ONE (12:36)
[2018-08-16] MEDS ORDERED: Isovue-300 200 mL Infus..BTL IV ONE (13:56)
[2018-08-16] MEDS ORDERED: Heparin 1,000 UNITS/500 mL 500 ML ONE (13:56)
[2018-08-16] MEDS ORDERED: *HR* FentaNYL (PF) 100 MCG/2 ML VIAL ONE (14:21)
--- NOTE | 2018-08-16 14:24 | Pre-Sedation Evaluation ---
Pre-sedation evaluation - Pre-sedation checklist Recent Vitals: Last Vital Signs Temp 97.8 F 08/16/18 11:39 Pulse 68 08/16/18 11:39 Resp 18 08/16/18 11:39 BP 152/77 08/16/18 11:39 Pulse Ox 95 08/16/18 11:39 Previous reaction to sedatives/anesthetics: No Dietary Status: NPO after Midnight Dentition: No loose teeth or bridges, poor dentition Possible difficult airway: Yes ASA Classification *see protocol: CLASS IV-Severe systemic disease/constant threat to pt's life Plan of Care: Pt appropriate candidate for procedure/moderate/conscious sedation , Risks/benefits of procedure/sedation discussed w/ patient/family Cardiac Registry (Cardio Only) - Functional Capacity - Clincal Frailty Scale
--- NOTE | 2018-08-16 15:02 | Invasive Diagnostic Lab Proc ---
Name: Jas Catherine Date of Study: 08/16/2018 Date: 1960 Ht: 188.0 in Medical Record#: [id number] Age: 57 Wt: 96.7 lb Gender: Male BSA: 2.23 Order #: [id number] BMI: 27.36 Physicians Performing MD: Brayan Wood MD, FACS Referring MD: Referring MD: Staff Name Position Time In Elise Boykin RT Jewelry Drilling Machine Operator AbySaida RT (R) Monitor Elise Boykin RT Scrub Indications DVT, Unilateral Procedures Performed IVC FILTER PLACEMENT Pre-Procedure Checklist Informed consent is complete signed and on chart. H&P is on chart. ID band is on and ID verified with patient. Patient NPO for procedure The procedure was described for the patient and questions were answered. Blood Pressure: 159/92 ECG is on chart. Rhythm: NSR Plan of Care Patient will tolerate the procedure without complications. Adequate level of comfort will be maintained. Hemodynamics will remain stable Patient will recover from procedure without complications. Respiratory function will be maintained. Cardiac rhythm will remain stable. Patient temperature will be maintained. Patient and/or family have verbalized understanding of the procedure. Patient Education Intravenous Access Time IV Size Location DC'd Fluid/Drip Rate Units RN 14:19 20g 1 /" Patent On Arrival Rt chest 0.9NaCl 25 ml/hr Allergies Nka - No Known Allergies No Known Allergies Vital Signs Time BP Systolic BP Diastolic HR O2 Sats ASA 148 76 77 98 02:25 PM 02:24 PM 159 92 76 95 02:28 PM 160 90 72 96 02:34 PM 158 88 72 97 02:39 PM 151 83 72 97 02:43 PM 152 83 71 97 02:48 PM 153 83 70 97 Procedure Medications Time Medication Dose Units Method Route 02:25 PM Oxygen 4 L/min nasal cannula 02:25 PM Fentanyl 25 mcg Intravenous 02:35 PM Lidocaine 2% 10 ml Subcutaneous Ingrid Score Preprocedure Postprocedure Activity 2- Moves 4 extremities sustained head lift Activity 2- Moves 4 extremities sustained head lift Circulation 2- SBP +/= 20 points of pre-anesthetic level Circulation 2- SBP +/= 20 points of pre-anesthetic level Consciousness 2- Awake and alert oriented x 3 Consciousness 2- Awake and alert oriented x 3 O2 Saturation 2- Able to maintain O2 satruation of 92% on room air O2 Saturation 2- Able to maintain O2 satruation of 92% on room air Respiratory 2- Able to deep breathe and cough well Respiratory 2- Able to deep breathe and cough well Total Score 10 Total Score 10 Contrast: Isovue 300- 150ml Contrast Amount: 6 ml Fluoro Dose: 103 mGy Procedure Log Time Note Entered By 02:14 PM Pt arrived to forestry laborer 1 at 14:14 : PM Physician paged/called 14:14 : PM Physician arrived 14:19 : PM Meet and greet completed : PM Sign in performed according to hospital policy. PM Procedure start 14:: PM Isabella Acuña RN Position: Jewelry Drilling Machine Operator Time in: :24 : PM Saida Badillo RT (R) Position: Monitor Time in: :: PM Elise Boykin RT Position: Scrub Time in: 14:: PM Case delayed: No PM Hair removed from procedure site in procedure lab using clippers. Bilateral groin prepped with Chloraprep by Saida Badillo RT (R), then patient was draped. Skin intact. : PM 14:25 Oxygen at 4 L/min per nasal cannula by Isabella Acuña RN : PM 14:25 Fentanyl 25 mcg Intravenous Given by Isabella Acuña RN : PM Time: 14:25 Is patient comfortable and pain free?: Yes PM Time: 14:25LOC: 5 = Fully awake and oriented or at pre-proc level PM Patient charges- Angio tray pack, Pulse Oximetry and ACIST tubing and transducer 02:34 PM Time out perfomed 02:34 PM Ultrasound, Sonosite, utilized to obtain vascular access 02:36 PM 14:35 10 ml Lidocaine 2% to right groin Subcutaneous Given By Brayan Wood MD, FACS [facility] 02:38 PM Patient Charges- Cook Celect IVC Filter SN/LOT# [id number],Tray Pack and Pulse Oximetry. [email or web address] 02:39 PM Access obtain and IVC Filter sheath inserted Rt Femoral vein. [email or web address] 02:40 PM Inferiorvenacavagram performed 3 MLS CONTRAST. [email or web address] 02:41 PM IVC Filter inserted into the inferior vena cava [email or web address] 02:42 PM IVC Filter deployed into the inferior vena cava [email or web address] 02:43 PM Inferiorvenacavagram performed 3MLS CONTRAST. [email or web address] 02:44 PM Procedure completed at 14:44 [email or web address] 02:44 PM Sign Out completed: Radiation Dose 102.79 mGy Fluoro Time: 0.9 minutes. contrast ml given by Brayan Wood MD, FACS. Complications: None. Confirmed administered medications:Yes [email or web address] 02:44 PM Isovue 300- 150ml,1 bottle(s) used. [email or web address] 02:45 PM Arterial sheath pulled using manual compression and V+Pad for 10 minutes by Elise Boykin RT [email or web address] 02:45 PM Estimated Blood Loss: minimal [email or web address] 02:45 PM Post Blood Pressure: 152/83 [email or web address] 02:45 PM Post EKG: NSR [email or web address] 02:45 PM 14:45 Post Pulses: Bilateral DP & PT . [email or web address] 02:45 PM Information taught: IVC filter [email or web address] 02:45 PM Education needs: Procedure and Plan of Care [email or web address] 02:45 PM Learning barriers: None [email or web address] 02:45 PM Education evaluation: Able to repeat information [email or web address] 02:45 PM Education evaluation: Able to repeat information [email or web address] 02:45 PM Patient pain level 0/10 [email or web address] 02:45 PM Delay to floor: No [email or web address] 02:46 PM Pt taken to 2A Room# 35 [email or web address] 02:46 PM Family placed in consult room. [email or web address] 02:46 PM Complications: None [email or web address] 02:46 PM Fluoro Time: 0.9 minutes [email or web address] 02:46 PM Isovue 300- 150ml contrast 6 ml given by Brayan Wood MD, FACS [email or web address] 02:46 PM Radiation Dose 102.79 mGy [email or web address] 02:20 PM PVIStat 02:23 PM Vitals capture started with the following parameters, Patient=Adult, Interval=5 min, Initial Pmszqetz=422 mmHg, Deflation Rate=3 mmHg, Cuff placed on Right Arm 02:24 PM HR=76 bpm, IZZM=027/92 mmhg, SpO2=95.0 %, Resp=8 B/min, Comment=NSR 02:28 PM HR=72 bpm, ATZA=739/90 mmhg, SpO2=96.0 %, Resp=20 B/min, Comment=NSR 02:32 PM Recorded ECG: HR=72 Condition=Condition 1 02:34 PM HR=72 bpm, KRFH=553/88 mmhg, SpO2=97.0 %, Resp=18 B/min, Comment=NSR 02:39 PM HR=72 bpm, FEDR=426/83 mmhg, SpO2=97.0 %, Resp=20 B/min, Comment=NSR 02:40 PM Recorded ECG: HR=71 Condition=Condition 1 02:43 PM HR=71 bpm, KWVE=952/83 mmhg, SpO2=97.0 %, Resp=19 B/min, Comment=NSR 02:48 PM HR=70 bpm, EQLU=797/83 mmhg, SpO2=97.0 %, Resp=35 B/min, Comment=NSR 02:53 PM Report given to NASRIN MUJICA. Pt taken to , Room # 35 14:53 [email or web address] 02:54 PM Site status No bleeding/hematoma - Rt Groin as reported by Elise Boyikn RT at 14:53 [email or web address] 02:54 PM Opsite applied [email or web address] 02:54 PM Patient out of room 14:54 [email or web address] Post Procedure Information Blood Pressure: 152/83 mmHg Rhythm: NSR Report Given To: Desi Site Checks Time Location Status Staff Sheath In? Note 2:53:00 PM Rt Groin No bleeding/hematoma Elise Boykin Pulses Time Site Pre Procedure Post Procedure Note Bilateral radial 1+ Bilateral DP 1+ 1+ 2:45:00 PM Bilateral DP & PT Updated by Saida Badillo, RT(R) on 08/16/2018 2:54:31 PM electronically signed on 08/16/2018 2:54:58 PM with status of Final
--- NOTE | 2018-08-16 15:18 | Procedure Note ---
Date of procedure: 08/16/18 Pre-op diagnosis: DVT/GI bleed Post-op diagnosis: same Procedure: Inferior venacavogram Insertion of IVC filter-Celect Anesthesia: MAC Surgeon: Brayan Wood Was there an environmental assistant present: No Estimated blood loss (cc): 0 Specimen: 0 Condition: stable Disposition: floor (Patient tolerated procedure well)
[2018-08-16] MEDS ORDERED: levoFLOXacin 750 MG TABLET PO SCH (16:00)
[2018-08-16] MEDS: Melatonin 3 MG TABLET PO PRN (22:29)
[2018-08-17] MEDS: Piperacillin/Tazobactam 3.375 GM in 0.9 % Sodium Chloride Mini Bag 100 ML IVPB SCH ×3 (00:22→15:14)
[2018-08-17 04:19] LABS: Hemoglobin 8.8 g/dL (12.9-16.9)
[2018-08-17 04:21] LABS: VBG Ionized Calcium 1.11 mmol/L (1.15-1.35)
[2018-08-17 04:21] LABS: Hematocrit 26.8 % (37.5-50.1); Immature Granulocytes % 0.7 % (0-4); Immature Platelets 1.2 % (1.1-6.1); Lymphocytes # 0.4 K/mcL (0.6-4.6); Lymphocytes % 6.8 %; Mean Corpuscular HGB Conc 32.8 g/dL (31.6-35.5); Mean Corpuscular Hemoglobin 29.9 pg (28.0-33.3); Mean Corpuscular Volume 91.2 fL (83.0-100.0); Mean Platelet Volume 8.6 fL (9.4-12.4); Monocytes # 0.2 K/mcL (0.0-1.3); Monocytes % 2.8 %; Neutrophils # 4.9 K/mcL (1.6-8.9); Red Blood Count 2.94 M/mcL (4.19-5.50); Red Cell Distribution Width 16.2 % (11.5-14.5); Segmented Neutrophils % 89.7 %
[2018-08-17 04:26] LABS: Platelet Count 59 K/mcL (140-400)
[2018-08-17 04:41] LABS: Calcium 6.9 mg/dL (8.6-10.3); Potassium 3.6 mEq/L (3.5-5.1)
[2018-08-17] MEDS: Gabapentin 100 MG CAPSULE PO SCH ×2 (09:10→20:25)
[2018-08-17] MEDS: hydrALAZINE 25 MG TABLET PO SCH ×4 (09:10→20:25)
[2018-08-17] MEDS: amLODIPine 5 MG TABLET PO SCH (09:10)
[2018-08-17] MEDS: predniSONE 20 MG TABLET PO SCH (09:10)
[2018-08-17] MEDS: Multivit/Ca/Min/Fe/FA 1 TAB TABLET PO SCH (09:10)
[2018-08-17] MEDS: Insulin LISPRO 300 UNITS/3 ML VIAL SQ SCH ×7 (09:11→20:27)
[2018-08-17] MEDS: Insulin DETEMIR 100 UNIT/ML X5UNITS SQ SCH (09:11)
--- NOTE | 2018-08-17 09:54 | Palliative Progress Note ---
<Aylin Laird N - Last Filed: 08/17/18 10:13> Date of Encounter: 08/17/18 Time of Encounter: 09:54 - Assessment and plan (1) Goals of care, counseling/discussion Current Visit: Yes Status: Acute Assessment and plan: Mr. Catherine is s/p placement of IVC filter. He is in good spirits today, and reports that he has no complaints or concerns at this time. He is eager to return home and resume physical activity with the assistance of PT in order to regain his strength. He states that he has been eating well and denies any gastrointestinal symptoms. Plan for discharge home with [facility] for PT/OT services when medically ready. (2) DVT (deep venous thrombosis) Current Visit: Yes Status: Acute Assessment and plan: S/p placement of IVC filter. Patient denies any pain or bleeding at access site on right leg. Plan for continued monitoring in cooperation with primary team. Qualifiers: DVT location: lower extremity Affected thrombotic vein of extremity: unspecified lower extremity proximal vein Chronicity: acute Laterality: unspecified laterality Qualified Code(s): I82.4Y9 - Acute embolism and thrombosis of unspecified deep veins of unspecified proximal lower extremity (3) HCAP (healthcare-associated pneumonia) Current Visit: Yes Status: Acute Assessment and plan: Mr. Catherine is currently on antimicrobial therapy with levofloxacin. He denies any continued cough or sputum production. He does have good breath sounds bilaterally and is no longer requiring supplemental oxygen. Will continue therapy with levofloxacin per primary team. (4) MARJAN (acute kidney injury) Current Visit: No Status: Acute Assessment and plan: Patient's creatinine is improving, at 1.74 this morning. He continues to have good urine output. Will continue close monitoring of renal function and avoidance of nephrotoxic agents. (5) Acute GI bleeding Current Visit: Yes Status: Suspected Assessment and plan: Patient received blood transfusion at the time of admission, with good improvement in hemoglobin and hematocrit. Most recent hemoglobin and hematocrit was 8.8 and 26.8, respectively. Plan to continue monitoring for signs of repeat anemia or recurrent GI bleeding. - Time Spent With Patient Total time spent is greater than 50% in coordination of care (as documented) at patient's floor/unit and/or counseling patient: - Subjective Interval history: Mr. Catherine is lying in bed comfortably at the time of evaluation today. He appears to be in good spirits, and expresses that he is grateful for the care he has received here at [facility]. He reports good PO intake at mealtimes. He denies any acute pain or discomfort at this time. He is no longer requiring additional oxygen, and is saturating well on room air. Nursing staff reports no acute overnight events. - Constitutional Vitals: Abnormal lab results RBC 2.94 M/mcL (4.19-5.50) L 08/17/18 04:00 Hgb 8.8 g/dL (12.9-16.9) L 08/17/18 04:00 Hct 26.8 % (37.5-50.1) L 08/17/18 04:00 RDW 16.2 % (11.5-14.5) H 08/17/18 04:00 Plt Count 59 K/mcL (140-400) L 08/17/18 04:00 MPV 8.6 fL (9.4-12.4) L 08/17/18 04:00 Lymphocytes # 0.4 K/mcL (0.6-4.6) L 08/17/18 04:00 Chloride 109 mEq/L (98-107) H 08/17/18 04:00 Carbon Dioxide 22 mEq/L (23-29) L 08/17/18 04:00 BUN 47 mg/dL (6-20) H 08/17/18 04:00 Creatinine 1.74 mg/dL (0.70-1.30) H 08/17/18 04:00 Est GFR ( Amer) 49 (> 60) L 08/17/18 04:00 Est GFR (Non-Af Amer) 41 (> 60) L 08/17/18 04:00 BUN/Creatinine Ratio 27 (6-26) H 08/17/18 04:00 Glucose 69 mg/dL (70-105) L 08/17/18 04:00 POC Glucose 185 mg/dL (70-99) H 08/16/18 20:00 Calcium 6.9 mg/dL (8.6-10.3) L 08/17/18 04:00 Venous Ioniz Calcium 1.11 mmol/L (1.15-1.35) L 08/17/18 04:17 Phosphorus 4.9 mg/dL (2.7-4.5) H 08/13/18 04:00 Alkaline Phosphatase 255 Units/L (34-104) H 08/12/18 12:38 Troponin I 0.05 ng/mL (< 0.04) H* 08/12/18 12:38 Serum Total Protein 4.1 g/dL (6.4-8.9) L 08/12/18 12:38 Albumin 2.2 g/dL (3.5-5.7) L 08/12/18 12:38 Globulin 1.9 g/dL (2.4-3.5) L 08/12/18 12:38 Urine Clarity Cloudy (Clear) A 08/12/18 14:28 Urine Protein 100 mg/dL (Neg-Trace) H 08/12/18 14:28 Urine Glucose (UA) 100 mg/dL (Normal) H 08/12/18 14:28 Ur Leukocyte Esterase Trace (Negative) H 08/12/18 14:28 Ur Squamous Epith Cells Many per lpf (None-Few) H 08/12/18 14:28 Ur Culture Indicated? NO. (NO) A 08/12/18 14:28 Stool Occult Bld Scrn Positive (Negative) A 08/12/18 16:06 Vancomycin Trough 23 mcg/mL (5-10) H 08/15/18 10:29 Exam: GENERAL: Adult male resting in bed comfortably. He does not appear to be in acute distress. He answers questions appropriately. HEENT: Atraumatic and normocephalic. CARDIOVASCULAR: Regular rate and rhythm. S1 and S2 present. No murmurs, rubs, or gallops. RESPIRATORY: CTA bilaterally. No wheezes, rales, or rhonchi noted. EXTREMITIES: No clubbing or cyanosis. Mild bilateral lower extremity edema present, greater on the right. NEUROLOGIC: A&O x3. Patient moves extremities spontaneously. No apparent focal deficits. Palliative Quality Palliative Quality: Screen for Code Status: Yes, Screen for Goals of Care: Yes, Screen for Pain: Yes, If Pain Regimen Started, Initiate Bowel Regimen: NA, Screen for Nausea/Vomitting: Yes Code Status: 08/12/18 19:21 DNR [Resuscitation Status: Active] [RES] Routine Comment: Resuscitation Status: DNR-Comfort Care 08/13/18 13:47 CODE [Resuscitation Status: Active] [RES] Routine Comment: Resuscitation Status: [id number] - Labs CBC & Chem 7: 08/17/18 04:00 08/17/18 04:00 Labs: Laboratory Results - last 24 hr 08/15/18 08/16/18 08/16/18 09:10 07:41 11:46 WBC RBC Hgb Hct MCV MCH MCHC RDW Plt Count MPV Immature Gran % Seg Neutrophils % Lymphocytes % Monocytes % Eosinophils % Basophils % Neutrophils # Lymphocytes # Monocytes # Eosinophils # Basophils # Immature Plt Fraction Sodium Potassium Chloride Carbon Dioxide BUN Creatinine Est GFR ( Amer) Est GFR (Non-Af Amer) BUN/Creatinine Ratio Glucose POC Glucose 377 H 297 H 265 H Calculated Osmolality Calcium Venous Ioniz Calcium 08/16/18 08/16/18 08/17/18 17:05 20:00 04:00 WBC 5.5 RBC 2.94 L Hgb 8.8 L Hct 26.8 L MCV 91.2 MCH 29.9 MCHC 32.8 RDW 16.2 H Plt Count 59 L MPV 8.6 L Immature Gran % 0.7 Seg Neutrophils % 89.7 Lymphocytes % 6.8 Monocytes % 2.8 Eosinophils % 0.0 Basophils % 0.0 Neutrophils # 4.9 Lymphocytes # 0.4 L Monocytes # 0.2 Eosinophils # 0.0 Basophils # 0.0 Immature Plt Fraction 1.2 Sodium Potassium Chloride Carbon Dioxide BUN Creatinine Est GFR ( Amer) Est GFR (Non-Af Amer) BUN/Creatinine Ratio Glucose POC Glucose 290 H 185 H Calculated Osmolality Calcium Venous Ioniz Calcium 08/17/18 08/17/18 04:00 04:17 WBC RBC Hgb Hct MCV MCH MCHC RDW Plt Count MPV Immature Gran % Seg Neutrophils % Lymphocytes % Monocytes % Eosinophils % Basophils % Neutrophils # Lymphocytes # Monocytes # Eosinophils # Basophils # Immature Plt Fraction Sodium 138 Potassium 3.6 Chloride 109 H Carbon Dioxide 22 L BUN 47 H Creatinine 1.74 H Est GFR ( Amer) 49 L Est GFR (Non-Af Amer) 41 L BUN/Creatinine Ratio 27 H Glucose 69 L POC Glucose Calculated Osmolality 297 Calcium 6.9 L Venous Ioniz Calcium 1.11 L - ABG Interpretation ABG results: PT/INR, D-dimer PT 10.8 Seconds (9.4-12.1) 08/12/18 12:38 Consult Discharge Plan - Plan [facility] Provider[facility] - <ZenonAmbar - Last Filed: 08/17/18 12:15> Date of Encounter: 08/17/18 - Time Spent With Patient Total time spent is greater than 50% in coordination of care (as documented) at patient's floor/unit and/or counseling patient: 25 - 35 minutes - Constitutional Vitals: Abnormal lab results RBC 2.94 M/mcL (4.19-5.50) L 08/17/18 04:00 Hgb 8.8 g/dL (12.9-16.9) L 08/17/18 04:00 Hct 26.8 % (37.5-50.1) L 08/17/18 04:00 RDW 16.2 % (11.5-14.5) H 08/17/18 04:00 Plt Count 59 K/mcL (140-400) L 08/17/18 04:00 MPV 8.6 fL (9.4-12.4) L 08/17/18 04:00 Lymphocytes # 0.4 K/mcL (0.6-4.6) L 08/17/18 04:00 Chloride 109 mEq/L (98-107) H 08/17/18 04:00 Carbon Dioxide 22 mEq/L (23-29) L 08/17/18 04:00 BUN 47 mg/dL (6-20) H 08/17/18 04:00 Creatinine 1.74 mg/dL (0.70-1.30) H 08/17/18 04:00 Est GFR ( Amer) 49 (> 60) L 08/17/18 04:00 Est GFR (Non-Af Amer) 41 (> 60) L 08/17/18 04:00 BUN/Creatinine Ratio 27 (6-26) H 08/17/18 04:00 Glucose 69 mg/dL (70-105) L 08/17/18 04:00 POC Glucose 243 mg/dL (70-99) H 08/17/18 11:31 Calcium 6.9 mg/dL (8.6-10.3) L 08/17/18 04:00 Venous Ioniz Calcium 1.11 mmol/L (1.15-1.35) L 08/17/18 04:17 Phosphorus 4.9 mg/dL (2.7-4.5) H 08/13/18 04:00 Alkaline Phosphatase 255 Units/L (34-104) H 08/12/18 12:38 Troponin I 0.05 ng/mL (< 0.04) H* 08/12/18 12:38 Serum Total Protein 4.1 g/dL (6.4-8.9) L 08/12/18 12:38 Albumin 2.2 g/dL (3.5-5.7) L 08/12/18 12:38 Globulin 1.9 g/dL (2.4-3.5) L 08/12/18 12:38 Urine Clarity Cloudy (Clear) A 08/12/18 14:28 Urine Protein 100 mg/dL (Neg-Trace) H 08/12/18 14:28 Urine Glucose (UA) 100 mg/dL (Normal) H 08/12/18 14:28 Ur Leukocyte Esterase Trace (Negative) H 08/12/18 14:28 Ur Squamous Epith Cells Many per lpf (None-Few) H 08/12/18 14:28 Ur Culture Indicated? NO. (NO) A 08/12/18 14:28 Stool Occult Bld Scrn Positive (Negative) A 08/12/18 16:06 Vancomycin Trough 23 mcg/mL (5-10) H 08/15/18 10:29 - Attending Attestation I performed a history and physical examination of the patient and discussed his management with the resident. I reviewed the residents note and agree with the documented findings and plan of care. Patient was complaining of intermittent burning sensation in his feet. He is on Gabapentin 100mg BID. Recommend increase to 200mg BID Palliative Quality Code Status: 08/12/18 19:21 DNR [Resuscitation Status: Active] [RES] Routine Comment: Resuscitation Status: DNR-Comfort Care 08/13/18 13:47 CODE [Resuscitation Status: Active] [RES] Routine Comment: Resuscitation Status: [id number] - Labs CBC & Chem 7: 08/17/18 04:00 08/17/18 04:00 Labs: Laboratory Results - last 24 hr 08/15/18 08/16/18 08/16/18 09:10 07:41 11:46 WBC RBC Hgb Hct MCV MCH MCHC RDW Plt Count MPV Immature Gran % Seg Neutrophils % Lymphocytes % Monocytes % Eosinophils % Basophils % Neutrophils # Lymphocytes # Monocytes # Eosinophils # Basophils # Immature Plt Fraction Sodium Potassium Chloride Carbon Dioxide BUN Creatinine Est GFR ( Amer) Est GFR (Non-Af Amer) BUN/Creatinine Ratio Glucose POC Glucose 377 H 297 H 265 H Calculated Osmolality Calcium Venous Ioniz Calcium 08/16/18 08/16/18 08/17/18 17:05 20:00 04:00 WBC 5.5 RBC 2.94 L Hgb 8.8 L Hct 26.8 L MCV 91.2 MCH 29.9 MCHC 32.8 RDW 16.2 H Plt Count 59 L MPV 8.6 L Immature Gran % 0.7 Seg Neutrophils % 89.7 Lymphocytes % 6.8 Monocytes % 2.8 Eosinophils % 0.0 Basophils % 0.0 Neutrophils # 4.9 Lymphocytes # 0.4 L Monocytes # 0.2 Eosinophils # 0.0 Basophils # 0.0 Immature Plt Fraction 1.2 Sodium Potassium Chloride Carbon Dioxide BUN Creatinine Est GFR ( Amer) Est GFR (Non-Af Amer) BUN/Creatinine Ratio Glucose POC Glucose 290 H 185 H Calculated Osmolality Calcium Venous Ioniz Calcium 08/17/18 08/17/18 08/17/18 04:00 04:17 11:31 WBC RBC Hgb Hct MCV MCH MCHC RDW Plt Count MPV Immature Gran % Seg Neutrophils % Lymphocytes % Monocytes % Eosinophils % Basophils % Neutrophils # Lymphocytes # Monocytes # Eosinophils # Basophils # Immature Plt Fraction Sodium 138 Potassium 3.6 Chloride 109 H Carbon Dioxide 22 L BUN 47 H Creatinine 1.74 H Est GFR ( Amer) 49 L Est GFR (Non-Af Amer) 41 L BUN/Creatinine Ratio 27 H Glucose 69 L POC Glucose 243 H Calculated Osmolality 297 Calcium 6.9 L Venous Ioniz Calcium 1.11 L - ABG Interpretation ABG results: PT/INR, D-dimer PT 10.8 Seconds (9.4-12.1) 08/12/18 12:38
--- NOTE | 2018-08-17 11:39 | Internal Med Progress Note ---
Hospitalist Progress Note - Encounter Date of Encounter: 08/17/18 Time of Encounter: 11:39 - Subjective Interval History: 57 M with medical history of malignant melanoma being managed via [facility]. Patient has had multiple recurrent inpatient hospitalizations. Additionally has a medical history of right lower extremity DVT. He is admitted and being managed for severe sepsis, HCAP, acute blood loss anemia due to suspected acute GI bleed, acute kidney injury and generalized weakness. [facility] He is s/p EGD/Colonoscopy 08/13 with with no obvious source of bleeding He has been afebrile, no more fever since 08/14 a.m He is awake, alert, and clinically looks improved, no new complains, seen with the palliative care attending His Hb remains stable, s/p 3 units RBCs s/p IVF filter placement - Exam Vitals: Temp Pulse Resp BP Pulse Ox 97.6 F 80 16 155/87 96 08/17/18 11:09 08/17/18 11:09 08/17/18 11:08/17/18 11:09 08/17/18 11:09 Exam: Gen: Sitting in bed, in no form of distress HEENT: Moist oral mucosa, not cyanotic Chest: chest is now CTAB, no added sounds CVS: HR and BP WNL, S1, S2 only, no m/g/r Abdomen: Flat, soft, not tender, no palpably enlarged organs,SQ bruising Extremities: Bilateral pitting pedal edema, R> L , diffuse erythema and bruising on RLE up to the groin, minimal affectation of LLE for same. Bilateral dwyer excoriations. LUE bruising and subcut bleeding ++, unchanged from prior exam 08/14. Contractures of 5th digits bilaterally neuro: Awake, alert and oriented X3, no focal deficits - Assessment and Plan (1) DVT (deep venous thrombosis) Current Visit: Yes Status: Acute Assessment and Plan: Patient reports being diagnosed with a DVT while hospitalized in [place]. He was initially on anticoagulation; however, this was discontinued due to anemia. discussed with Dr. Wood vascular surgery s/p IVC filter placement 08/17, groin dressing clean and dry (2) DVT prophylaxis Current Visit: Yes Status: Acute Assessment and Plan: No medical DVT prophylaxis due to suspected GIB and anemia No SCDs due to risk of PE. (3) Sepsis Current Visit: Yes Status: Acute Assessment and Plan: Improving Patient presented with fever, tachycardia, HR >[address] findings of HCAP Tmax is 103 His last fever episode was 08/14 at 0409 He has MARJAN and this is now slowly improving Legionella and strep Ag negative Blood culture negative till date Has received Vanc, Zosyn and Levaquin-day 5 Cultures negative till date Discontinued Vanco 08/16 Continue Levaquin and Zosyn-Day 6 Levqauin will be day 7/ on 08/18, discontinue afterwards, change zosyn to augmentin po at time of discharge to complete 10 days of therapy (4) Hyperkalemia Current Visit: Yes Status: Resolved Assessment and Plan: resolved (5) HCAP (healthcare-associated pneumonia) Current Visit: Yes Status: Acute Assessment and Plan: mgt as in sepsis Continue O2 as needed (6) Acute GI bleeding Current Visit: Yes Status: Suspected Assessment and Plan: Likely ruled out At the time of admission, patient had hemoglobin of 6.9 and a positive stool occult test. He received 2 units of blood, with improvement in hemoglobin to 8.6. He underwent EGD and colonoscopy 08/14, neither of which revealed evidence of active bleeding. Patient is currently being monitored with Hgb/Hct daily and Hb has been stable for the past 24 hrs No further interventions (7) Acute blood loss anemia Current Visit: Yes Status: Acute Assessment and Plan: likely 2/2 to acute upper GI bleed also consider subcut hematoma, no obvious compartment syndrome signs, but patient has extensive LUE and RLE bruising Hemoglobin was 6.9 with positive hemooccult. s/p 2 units RBCs HB stable EGD/Colonoscopy with no obvious source of bleeding (8) Acute kidney injury Current Visit: Yes Status: Acute Assessment and Plan: Improving Elevated BUN and Cr IVF discontinued 08/17 Continue to monitor (9) Lung cancer Current Visit: Yes Status: Chronic Assessment and Plan: On immunotherapy, outpatient follow up (10) Acute respiratory failure with hypoxia Current Visit: Yes Status: Acute Assessment and Plan: Likely 2/2 to HCAp/ multifocal pneumonia. 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 Continue steroids, increase dose of steroids due to continuous critical illness Begin tapering to home dose - Time Spent with Patient Total time spent is greater than 50% in coordination of care (as documented) at patient's floor/unit and/or counseling patient: Plan of Care Discussed with: patient Internal Medicine: Result - Labs CBC & Chem 7: 08/17/18 04:00 08/17/18 04:00 Labs: Short CBC 08/17/18 Range/Units 04:00 WBC 5.5 (4.3-11.1) K/mcL Hgb 8.8 L (12.9-16.9) g/dL Hct 26.8 L (37.5-50.1) % Plt Count 59 L (140-400) K/mcL Neutrophils # 4.9 (1.6-8.9) K/mcL BMP 08/17/18 04:00 Sodium 138 Potassium 3.6 Chloride 109 H Carbon Dioxide 22 L BUN 47 H Creatinine 1.74 H Glucose 69 L Calcium 6.9 L - ABG Interpretation ABG results: PT/INR, D-dimer PT 10.8 Seconds (9.4-12.1) 08/12/18 12:38 Consult Discharge Plan - Plan [facility]: [facility]Primary Care Provider] - (1) DVT (deep venous thrombosis) Qualifiers: DVT location: lower extremity Affected thrombotic vein of extremity: unspecified lower extremity proximal vein Chronicity: acute Laterality: unspecified laterality Qualified Code(s): I82.4Y9 - Acute embolism and thrombosis of unspecified deep veins of unspecified proximal lower extremity (3) Sepsis Qualifiers: Sepsis type: sepsis due to unspecified organism Qualified Code(s): A41.9 - Sepsis, unspecified organism (9) Lung cancer Qualifiers: Laterality: unspecified laterality Lung location: unspecified part of lung Qualified Code(s): C34.90 - Malignant neoplasm of unspecified part of unspecified bronchus or lung
[2018-08-17] MEDS: Melatonin 3 MG TABLET PO PRN (20:25)
[2018-08-18 04:28] LABS: Basophils % 0.2 %; Immature Granulocytes % 0.9 % (0-4)
[2018-08-18 04:30] LABS: Hemoglobin 8.7 g/dL (12.9-16.9); Immature Platelets 1.8 % (1.1-6.1); Lymphocytes # 0.4 K/mcL (0.6-4.6); Lymphocytes % 7.2 %; Mean Corpuscular HGB Conc 33.5 g/dL (31.6-35.5); Mean Corpuscular Hemoglobin 29.7 pg (28.0-33.3); Mean Corpuscular Volume 88.7 fL (83.0-100.0); Mean Platelet Volume 8.9 fL (9.4-12.4); Monocytes # 0.2 K/mcL (0.0-1.3); Monocytes % 3.3 %; Neutrophils # 4.9 K/mcL (1.6-8.9); Red Blood Count 2.93 M/mcL (4.19-5.50); Segmented Neutrophils % 88.4 %
[2018-08-18 04:32] LABS: Platelet Count 67 K/mcL (140-400)
[2018-08-18 04:41] LABS: Calcium 6.8 mg/dL (8.6-10.3); Potassium 3.8 mEq/L (3.5-5.1)
[2018-08-18 06:46] VITALS: BP 163/95
[2018-08-18] MEDS: predniSONE 20 MG TABLET PO SCH (07:39)
[2018-08-18] MEDS: hydrALAZINE 25 MG TABLET PO SCH (07:39)
[2018-08-18] MEDS: Multivit/Ca/Min/Fe/FA 1 TAB TABLET PO SCH (07:39)
[2018-08-18] MEDS: amLODIPine 5 MG TABLET PO SCH (07:40)
[2018-08-18] MEDS: Gabapentin 100 MG CAPSULE PO SCH (07:40)
[2018-08-18] MEDS: Piperacillin/Tazobactam 3.375 GM in 0.9 % Sodium Chloride Mini Bag 100 ML IVPB SCH ×2 (07:40)
[2018-08-18] MEDS: Insulin LISPRO 300 UNITS/3 ML VIAL SQ SCH ×2 (07:47)
[2018-08-18] MEDS: Insulin DETEMIR 100 UNIT/ML X5UNITS SQ SCH (07:47)
--- NOTE | 2018-08-18 10:14 | Event Note ---
Date of Encounter: 08/18/18 Time of Encounter: 10:10 Mr. Catherine was seen and examined at the bedside. He is in good spirits, and denies any acute complaints or concerns. He is eager to be discharged home. Physical and occupational therapy teams recommended inpatient rehab at [facility]; however, both the patient and his are adamant about him returning home and not going back to a facility. They state that someone in the family will be available to assist him at home at all times. Patient's plan is to return home and receive outpatient PT/OT and regain his strength, after which he would like to pursue any additional cancer treatments that may be offered to him. No further goals of care discussion. Palliative care team signing off on this patient. Thank you for allowing us to participate in the care of this patient.
--- NOTE | 2018-08-18 10:40 | Physician Discharge Referral ---
Home Health/Hosp Referral Info Transfer to: Home Health Attending Provider: Disha Khan Provider in Charge Post Discharge: PCP - Diagnosis (1) DVT (deep venous thrombosis) Priority: Primary Status: Acute (2) DVT prophylaxis Priority: Primary Status: Acute (3) Sepsis Priority: Primary Status: Resolved (4) Hyperkalemia Priority: Primary Status: Resolved (5) HCAP (healthcare-associated pneumonia) Priority: Primary Status: Acute (6) Acute GI bleeding Priority: Primary Status: Ruled-out (7) Acute blood loss anemia Priority: Primary Status: Resolved (8) Acute kidney injury Priority: Primary Status: Acute (9) Lung cancer Priority: Secondary Status: Chronic (10) Acute respiratory failure with hypoxia Priority: Primary Status: Resolved (11) Elevated troponin Priority: Primary Status: Resolved (12) Adrenal insufficiency Priority: Secondary Status: Chronic - Respiratory Orders Oxygen / L per min (2-3 L per min to acheive O2 sat of 92%) Smoking Cessation: Smoking cessation has been advised. For more information, call the [place] Tobacco Quit Line at 3-282-ZVEN-NOW. - Diet/Nutrition Diet/Nutrition Orders: Renal, Cardiac, No Concentrated Sweets - Activity Activity Orders: Up ad alva - Services Needed Following services are medically necessary services: Nursing, Home Health Aide, Physical Therapy, Occupational Therapy - Transfer Medications Prescriptions: Amlodipine Besylate 10 mg PO DAILY #30 tablet Amoxicillin/Clavulanate [Augmentin] 500 mg PO BIDWM #6 tablet Carvedilol [Coreg] 12.5 mg PO BIDWM #60 tablet Omeprazole [PriLOSEC] 40 mg PO BIDAC #60 capsule. predniSONE [PredniSONE] 80 mg PO DAILY #50 tablet Home Medications: Multivit-Min/FA/Lycopen/Lutein [A Thru Z Select Multivit Tab] 1 tab PO DAILY [History] Aspirin Enteric Coated [Aspirin EC] 81 mg PO DAILY 07/19/18 [History] Acetaminophen [Tylenol] 650 mg PO Q6HR PRN tablet 07/26/18 [Rx] Tamsulosin [Flomax] 0.4 mg PO DAILY capsule 07/26/18 [Rx] Gabapentin [Neurontin] 100 mg PO BID 08/12/18 [History] Insulin ASPART [Novolog] 8 unit SQ TIDWM 08/12/18 [History] Insulin NPH [HumuLIN NPH] 8 unit SQ HS 08/12/18 [History] Insulin NPH [HumuLIN NPH] 12 unit SQ QAM 08/12/18 [History] Metoclopramide [Reglan] 10 mg PO TID 08/12/18 [History] Sulfamethoxazole/Trimeth DS [Bactrim Ds] 1 tab PO MOWEFR 08/12/18 [History] Amlodipine Besylate 10 mg PO DAILY #30 tablet 08/18/18 [Rx] Amoxicillin/Clavulanate [Augmentin] 500 mg PO BIDWM #6 tablet 08/18/18 [Rx] Carvedilol [Coreg] 12.5 mg PO BIDWM #60 tablet 08/18/18 [Rx] Melatonin 1.5 mg PO HS PRN tablet 08/18/18 [Rx] Omeprazole [PriLOSEC] 40 mg PO BIDAC #60 capsule. 08/18/18 [Rx] predniSONE [PredniSONE] 80 mg PO DAILY #50 tablet 08/18/18 [Rx] Allergies/Adverse Reactions: 3 Allergy/AdvReac Type Severity Reaction Status Date / Time No Known Allergies Allergy Verified 06/13/15 14:30 Certification: Further, I certify that my clinical findings support that this patient is homebound (i.e. absences from home require considerable and taxing effort and are for medical reasons or jainism services or infrequently or short duration when for other reasons) because: Homebound Reason: Patient requires assistance of a person or device to safely leave home Attestation: My signature below is to certify that this patient is under my care and that I, or nurse practitioner, or a physician's central supply assistant working with me, has a face-to -face encounter with this patient.
--- NOTE | 2018-08-18 10:41 | Discharge Summary ---
- NOTES TO OUTPATIENT PROVIDER Notes to Outpatient Provider: 57 M, multiple chronic medical conditions was admitted for severe sepsis, acute kidney injury, acute blood loss anemia due to suspected acute GI bleed as well as subcutaneous bleeding. He has been on intravenous antibiotics, he is status post EGD and colonoscopy with no obvious source of bleeding found, his blood pressure has been sustained resume his home medications, especially breathing has improved and he is to longer requiring continuous oxygen during the daytime. His hemoglobin has remained improved with blood transfusions. He has a history of DVT and recurrent anemias while on anticoagulation. IVC filter was placed in this admission by vascular surgery. Discharged home in clinically stable condition. Continue tapering dose of prednisone, complete 3 more days of oral antibiotics at home and follow up with primary care physician. Orders not resulted at time of discharge: Pending orders 08/13/18 17:19 CL IVC Filter [CL] Routine 08/19/18 04:00 Chem 7 [Basic Metabolic Panel] AM 0400 Complete Blood Count [HEME] AM 0400 Date of Encounter: 08/18/18 Time of Encounter: 10:40 - Discharge Diagnosis (1) DVT (deep venous thrombosis) Priority: Primary Status: Acute Assessment and Plan: Patient reports being diagnosed with a DVT while hospitalized in [place]. He was initially on anticoagulation; however, this was discontinued due to anemia. s/p IVC filter placement 08/17 by Vascular surgery, groin dressing clean and dry FOllow up with PCP Qualifiers: DVT location: lower extremity Affected thrombotic vein of extremity: unspecified lower extremity proximal vein Chronicity: acute Laterality: unspecified laterality Qualified Code(s): I82.4Y9 - Acute embolism and thrombosis of unspecified deep veins of unspecified proximal lower extremity (2) DVT prophylaxis Priority: Primary Status: Resolved Assessment and Plan: Resolved Patient is being discharged, encourage ambulation (3) Sepsis Priority: Primary Status: Resolved Assessment and Plan: Resolved Patient presented with fever, Tmax is 103, tachycardia, HR >[address] findings of HCAP His last fever episode was 08/14 at 0409 Legionella and strep Ag negative Blood culture and sputum cultures negative till date Has received Vanc, Zosyn and Levaquin combination for 5 days Discontinued Vanco 08/16 Has completed 7 days of levaquin Discharged home on po augmentin to complete 10 days total of antibiotic regimen Follow up with PCP Qualifiers: Sepsis type: sepsis due to unspecified organism Qualified Code(s): A41.9 - Sepsis, unspecified organism (4) Hyperkalemia Priority: Primary Status: Resolved Assessment and Plan: due to MARJAN Resolved with treatment (5) HCAP (healthcare-associated pneumonia) Priority: Primary Status: Acute Assessment and Plan: as in sepsis (6) Acute GI bleeding Priority: Primary Status: Ruled-out Assessment and Plan: Likely ruled out At the time of admission, patient had hemoglobin of 6.9 and a positive stool occult test. He received 2 units of blood, with improvement in hemoglobin to 8.6. He underwent EGD and colonoscopy 08/14, neither of which revealed evidence of active bleeding. Hb has been stable post transfusion (7) Acute blood loss anemia Priority: Primary Status: Resolved Assessment and Plan: likely 2/2 to acute upper GI bleed also consider subcut hematoma, no obvious compartment syndrome signs, but patient has extensive LUE and RLE bruising Hemoglobin was 6.9 with positive hemooccult on admission s/p 2 units RBCs and Hb has been stable EGD/Colonoscopy with no obvious source of bleeding Follow up with PCP for repeat blood work (8) Acute kidney injury Priority: Primary Status: Acute Assessment and Plan: Presented with BUN/Cr of 76/2.66 Imrpoved to 46/1.63 with IVF hydration IVF was discontinued 08/17 and continuous improvement noted Educated to avoid nephrotoxins, follow up with PCP (9) Lung cancer Priority: Secondary Status: Chronic Assessment and Plan: On immunotherapy, outpatient follow up Qualifiers: Laterality: unspecified laterality Lung location: unspecified part of lung Qualified Code(s): C34.90 - Malignant neoplasm of unspecified part of unspecified bronchus or lung (10) Acute respiratory failure with hypoxia Priority: Primary Status: Resolved Assessment and Plan: Resolved Likely 2/2 to HCAp/ multifocal pneumonia. 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 Continue steroids, increase dose of steroids due to continuous critical illness Discharged home on tapering dose of prednisone Hospital course: Mr. Catherine is a 57 year old male 57 M, multiple chronic medical conditions was admitted for severe sepsis, acute kidney injury, acute blood loss anemia due to suspected acute GI bleed as well as subcutaneous bleeding. He has been on intravenous antibiotics, he is status post EGD and colonoscopy with no obvious source of bleeding found, his blood pressure has been sustained resume his home medications, especially breathing has improved and he is to longer requiring continuous oxygen during the daytime. His hemoglobin has remained improved with blood transfusions. He has a history of DVT and recurrent anemias while on anticoagulation. IVC filter was placed in this admission by vascular surgery. Discharged home in clinically stable condition. Continue tapering dose of prednisone, complete 3 more days of oral antibiotics at home and follow up with primary care physician. See individual diagnosis for further details In addition, patient is severely deconditioned and PTOT evaluation has recommended placement but patient and his opted to go home with home health Discharge discussed with: patient, family, nurse, social work, case management - Time Spent with Patient Total time spent providing and/or coordinating discharge services: Greater than 30 minutes (50 mins spent) - Discharge Medications Prescriptions: Amlodipine Besylate 10 mg PO DAILY #30 tablet Amoxicillin/Clavulanate [Augmentin] 500 mg PO BIDWM #6 tablet Carvedilol [Coreg] 12.5 mg PO BIDWM #60 tablet Omeprazole [PriLOSEC] 40 mg PO BIDAC #60 capsule. predniSONE [PredniSONE] 80 mg PO DAILY #50 tablet Home Medications: Multivit-Min/FA/Lycopen/Lutein [A Thru Z Select Multivit Tab] 1 tab PO DAILY [History] Aspirin Enteric Coated [Aspirin EC] 81 mg PO DAILY 07/19/18 [History] Acetaminophen [Tylenol] 650 mg PO Q6HR PRN tablet 07/26/18 [Rx] Tamsulosin [Flomax] 0.4 mg PO DAILY capsule 07/26/18 [Rx] Gabapentin [Neurontin] 100 mg PO BID 08/12/18 [History] Insulin ASPART [Novolog] 8 unit SQ TIDWM 08/12/18 [History] Insulin NPH [HumuLIN NPH] 8 unit SQ HS 08/12/18 [History] Insulin NPH [HumuLIN NPH] 12 unit SQ QAM 08/12/18 [History] Metoclopramide [Reglan] 10 mg PO TID 08/12/18 [History] Sulfamethoxazole/Trimeth DS [Bactrim Ds] 1 tab PO MOWEFR 08/12/18 [History] Amlodipine Besylate 10 mg PO DAILY #30 tablet 08/18/18 [Rx] Amoxicillin/Clavulanate [Augmentin] 500 mg PO BIDWM #6 tablet 08/18/18 [Rx] Carvedilol [Coreg] 12.5 mg PO BIDWM #60 tablet 08/18/18 [Rx] Melatonin 1.5 mg PO HS PRN tablet 08/18/18 [Rx] Omeprazole [PriLOSEC] 40 mg PO BIDAC #60 capsule. 08/18/18 [Rx] predniSONE [PredniSONE] 80 mg PO DAILY #50 tablet 08/18/18 [Rx] Allergies/Adverse Reactions: 3 Allergy/AdvReac Type Severity Reaction Status Date / Time No Known Allergies Allergy Verified 06/13/15 14:30 Date of admission: 08/12/18 16:09 Primary care physician: PCP SUSAN Consults: 08/12/18 16:51 Consult to Gastroenterology [CONS] Routine Consulting Provider: Gastroenterology Pari Reason for Consult: acute GI bleed Call Completed: Yes Consult to Vascular Surgery [CONS] Routine Consulting Provider: Vascular Surgery Ariel Reason for Consult: GI bleed in the setting of DVT for evaluation for IVC filter Call Completed: Yes 08/17/18 10:38 Consult to Occupational Therapy [CONS] Routine Comment: Evaluate, develop and implement POC Reason for Consult: ecf vs home health Does patient have active BEDREST order?: No Is patient medically & hemodynamically stable?: Yes Consult to Physical Therapy [CONS] Routine Comment: Evaluate, develop and implement POC Reason for Consult: ecf vs home health Does patient have active BEDREST order?: No Is patient medically & hemodynamically stable?: Yes 08/18/18 08:40 Consult to Rn Field Case Manager [CONS] Routine Reason for SW Consult: needs ecf Discharging clinician: Lj Khan Anticipated date of discharge: 08/18/18 - Constitutional Vitals: Temp Pulse Resp BP Pulse Ox 97.6 F 88 16 163/95 92 08/18/18 06:37 08/18/18 06:37 08/18/18 06:37 08/18/18 06:37 08/18/18 06:37 General appearance: Present: A&O X 3, pleasant, no acute distress Exam: Gen: Sitting in bed, in no form of distress HEENT: Moist oral mucosa, not cyanotic Chest: chest is now CTAB, no added sounds CVS: HR and BP WNL, S1, S2 only, no m/g/r Abdomen: Flat, soft, not tender, no palpably enlarged organs,SQ bruising Extremities: Bilateral pitting pedal edema, R> L , diffuse erythema and bruising on RLE up to the groin, minimal affectation of LLE for same. Bilateral dwyer excoriations. LUE bruising and subcut bleeding ++, unchanged from prior exam 08/14. Contractures of 5th digits bilaterally neuro: Awake, alert and oriented X3, no focal deficits - Patient Status Disposition: Home Health Service Condition: Fair Functional capacity at discharge: uses cane/walker Overall status at discharge: patient is progressing back to baseline - Discharge Instructions Instructions: Anemia (GEN) Follow [facility] With: [facility] [Primary Care Provider] - - Diet and Activity Activity: resume usual activities as tolerated, wear oxygen at night Diet: diabetic diet, low fat, low cholesterol, low salt diet
[2018-08-18] MEDS ORDERED: Amoxicillin/Clavulanate 500 MG TABLET PO SCH (17:00)
[2018-08-19] MEDS ORDERED: predniSONE 20 MG TABLET PO SCH (09:00)
== END 2018-08-18 11:21 | disposition home health service (06) | DRG 853 ==
LOC: EMEROOARM 12:22 → 2ANU 16:09 → SUATTDRO 16:09 → 2ANU 17:49
PROVIDERS: ADMIT Internal Medicine; ATTEND Internal Medicine